=== PATIENT | female | born 1940 | race Caucasian/White ===

== ENCOUNTER → 2023-05-26 10:56 | Outpatient (REF) | payer MEDICARE, OTHER, SELFPAY | LOC: RAD 10:56 | PROVIDERS: ATTENDING PHYSICIAN Surgery Vascular Surgery; FAMILY PHYSICIAN Internal Medicine | DX: I73.9 Peripheral vascular disease, unspecified (principal) | CPT/HCPCS: 93922; 93925 ==

== ENCOUNTER → 2023-09-25 11:03 | Outpatient (REF) | payer MEDICARE, OTHER, SELFPAY | LOC: RCS 11:03 | PROVIDERS: ATTENDING PHYSICIAN Internal Medicine Cardiovascular Disease; FAMILY PHYSICIAN Internal Medicine | DX: I21.4 Non-ST elevation (NSTEMI) myocardial infarction (principal); I50.32 Chronic diastolic (congestive) heart failure; I10 Essential (primary) hypertension | CPT/HCPCS: 93306 ==

== ENCOUNTER 2023-10-03 15:17 | Emergency (ER) | payer MEDICARE, OTHER, SELFPAY ==
[2023-10-03 15:30] VITALS: BP 152/75
--- NOTE | 2023-10-03 15:57 | ED.SKININJ ---
HPI-Injury
General
Chief Complaint: Bite
Source: patient
Exam Limitations: none
Time Seen by Provider: 10/03/23 15:56
Nursing documentation reviewed up to this point in time: agreed with
History of Present Illness-Injury
Is this injury a work related problem?: No
Is pt an associate of [facility]?: No
Initial Injury comments:
83-year-old female with a past medical history of hypertension, COPD, peripheral arterial disease, insulin-dependent diabetes presenting emergency department today with concerns of a tick bite. Patient states that she is outside frequently to work
in her garden. Patient states that she noticed the rash on her abdomen but did not notice the tick until her daughter pointed it out. Daughter present here with patient who reports that she was changing patient's insulin pump today when she noticed
the engorged tick. Patient denies chest pain, palpitations, lightheadedness, fevers or chills, shortness of breath. Patient denies history of tick bites/lyme disease. Patient states that the rash is not itchy or painful.
Past History
Past History
ED Past Medical History: CVA, HTN, Hypercholesterolemia, IDDM, Hypothyroidism, Other (Osteoarthritis) and Other (LE Arterial insufficiency)
ED Past Surgical History: Other (Lower extremity stent)
Social History
Tobacco: Former smoker
Alcohol: None
Drug: None
Personal:
Living: alone
Employment: Retired
Family History
Family History: Diabetes, Other and Unable to obtain
Review of Systems
Review of Systems
All Other Systems: ROS reviewed and negative except as documented in HPI and ROS
Phy Exam
Physical Exam
Physical Exam:
GENERAL: Patient is well appearing and in no acute distress; non-toxic
SKIN: Uniform circumferential area of erythema located in the left lower abdominal quadrant consistent with erythema migrans, approximately 6 cm in width with engorged tick in the center with body about 7 mm in width.
HEAD: Normocephalic, atraumatic
EYES: Sclera non-icteric. EOMs intact.
CARDIAC: Regular rate
PERIPHERAL VASCULAR: No lower extremity swelling or edema
PULM: Normal respiratory effort
ABDOMEN: See skin exam above. No tenderness to palpation.
NEURO: CN II-XII intact, no focal neurologic deficits.
PSYCH: Appropriate mood and affect
Course
Vital Signs
Initial and Last Documented VS:
Initial Vital Signs
Temp Pulse Resp BP Pulse Ox
98.2 F 55 16 152/75 96
10/03/23 15:30 10/03/23 15:30 10/03/23 15:30 10/03/23 15:30 10/03/23 15:30
Last Documented Vital Signs
Temp Pulse Resp BP Pulse Ox
98.2 F 55 16 152/75 96
10/03/23 15:30 10/03/23 15:30 10/03/23 15:30 10/03/23 15:30 10/03/23 15:30
MDM/Problems Addressed
Differential Diagnosis Includes:
ddx include lyme disease/erythema migrans, contact dermatitis, cellulitis, erysipelas
MDM/Problems Addressed:
Tick bite/erythema migrans:
83-year-old female with a past medical history of hypertension, COPD, peripheral arterial disease, insulin-dependent diabetes presenting emergency department today with concerns of a tick bite. Daughter noticed the engorged tick today when changing
her insulin pump. There is an associated rash consistent with erythema migraines. Patient denies fevers or chills. Denies any other complaints.
The tick was successfully removed with sterile tweezers close to the head and carefully pulled straight up to prevent breakage. The remaining wound was thoroughly cleaned with sterile saline and wound cleanser, and bacitracin and dressing was
applied. Wound care and return precautions given. Doxycycline started. Encouraged primary care follow up for reevaluation.
Chronic conditions affecting care:
hypertension, COPD, peripheral arterial disease, insulin-dependent diabetes
Acute Exacerbation and/or Progression of Chronic Illness:
n/a
*Pulse Oximetry
Patient hypoxic: no
*Critical Care Note
Total Time (30-74mins, 75-104mins- exclusive of procedures): Not Applicable
Data Reviewed
Review of Other/Old Records Reveals: Discharge Summary (reviewed most recent discharge summaries)
Patient Management
Escalation/DeEscalation of care consider admission/obs:
Patient stable for discharge. Reviewed case with my attending Dr. Rees.
ED Attending Note
-
Portions of this chart may have been created with voice recognition software.� Occasional wrong word or��sound alike� substitutions may have occurred due to the inherent limitations of voice recognition software.
Discharge Plan
Departure
Patient Disposition: Home (Routine Discharge)
Date of Disposition: 10/03/23
Time of Disposition: 16:17
Patient with high blood pressure during this ER visit?: Yes
Condition: Good
Discharge Problem:
Tick bite, Rash
Instructions: Lyme disease, Wound Care (DC), Insect Bites and Stings (DC)
Prescriptions:
New
doxycycline hyclate 100 mg capsule
100 mg PO BID Qty: 14 0RF
No Action
cyanocobalamin (vitamin B-12) 100 MCG tablet
100 mcg PO DAILY
aspirin 81 MG tablet,delayed release (DR/EC)
81 mg PO QPM
ferrous sulfate [FeroSul] 325 MG tablet
325 mg PO QPM
Insulin Pump [Patient's Own Insulin Pump:] 1 UNITS Pump.Resvr
1 dose SC .CONTINUOUS
Rx Instructions:
patient using humalog via pump continuous
amlodipine 5 MG tablet
2.5 mg PO BID
ascorbic acid (vitamin C) 500 MG capsule
500 mg PO QPM
cholestyramine-aspartame [Cholestyramine Light] 4 GM powder in packet
4 gm PO QPM
coenzyme Q10 200 MG capsule
200 mg PO QPM
roflumilast [Daliresp] 500 MCG tablet
500 mcg PO DAILY
Bevespi Aerosphere 9-4.8 mcg Hfa Aerosol Inhaler
2 puff INHALATION R DAILY Qty: 0
Patient Comments:
9-4.8MCG
levothyroxine 100 MCG tablet
100 mcg PO DAILY AT 0700
loperamide 2 mg Capsule
2 mg PO Q4HPRN PRN (Reason: diarrhea)
acetaminophen [Tylenol] 325 mg Capsule
650 mg PO Q4HPRN PRN (Reason: mild pain)
albuterol sulfate 2.5 mg /3 mL (0.083 %) Solution For Nebulization
2.5 mg INHALATION R DAILY
gabapentin 100 mg Capsule
100 mg PO HS
Baqsimi 3 mg/actuation [place],Non-Aerosol
3 mg INTRANASAL DAILYPRN PRN (Reason: low blood sugar)
Hair, Skin and Nails (biotin) 10,000 mcg Tablet,Chewable
10,000 mcg PO DAILY
atorvastatin 80 mg Tablet
80 mg PO QPM Qty: 30 0RF
clopidogrel 75 mg Tablet
75 mg PO DAILY Qty: 30 0RF
pantoprazole 40 mg Tablet,Delayed Release (Dr/Ec)
40 mg PO DAILY Qty: 30 0RF
metoprolol succinate 25 mg Tablet Extended Release 24 Hr
12.5 mg PO DAILY Qty: 30 0RF
Activity Restrictions/Additional Instructions:
Patient doxycycline to your pharmacy. You can take 1 tablet twice daily for 14 days.
Please return to the emergency department should you experience fevers or chills, abdominal pain, nausea or vomiting, confusion, weakness, lightheadedness, chest pain, shortness of breath, or any other concerning signs or symptoms.
Please follow-up with your primary care provider.
Interventions
Interventions:
*Risk Screen - Suicide Last Done: 10/03/23 15:30
*General Assessment Last Done: 10/03/23 15:30
*Neglect/Abuse Screening Last Done: 10/03/23 15:30
*Nursing Disposition Last Done: 10/03/23 16:51
ED-Skin Assessment Last Done: 10/03/23 16:12
Discharge Date and Time
Discharge Date/Time: 10/03/23 16:52
Print Language: NORTHER[place] IRISH
== END 2023-10-03 16:52 | disposition home or self-care (01) ==
LOC: EMR 15:17
PROVIDERS: EMERGENCY PHYSICIAN Emergency Medicine; FAMILY PHYSICIAN Internal Medicine
DX: R21 Rash and other nonspecific skin eruption (principal); W57.XXXA Bitten or stung by nonvenomous insect and other nonvenomous arthropods, initial encounter; I10 Essential (primary) hypertension; E78.00 Pure hypercholesterolemia, unspecified; E11.51 Type 2 diabetes mellitus with diabetic peripheral angiopathy without gangrene; E03.9 Hypothyroidism, unspecified; J44.9 Chronic obstructive pulmonary disease, unspecified; M19.90 Unspecified osteoarthritis, unspecified site; Z86.73 Personal history of transient ischemic attack (TIA), and cerebral infarction without residual deficits; Z87.891 Personal history of nicotine dependence
CPT/HCPCS: 99282

== ENCOUNTER → 2023-12-08 10:53 | Outpatient (REF) | payer MEDICARE, OTHER, SELFPAY | LOC: RAD 10:53 | PROVIDERS: ATTENDING PHYSICIAN Surgery Vascular Surgery; FAMILY PHYSICIAN Internal Medicine | DX: I73.9 Peripheral vascular disease, unspecified (principal) | CPT/HCPCS: 93922; 93925 ==

== ENCOUNTER 2024-07-20 23:10 | Inpatient (IN) | payer MEDICARE, OTHER, SELFPAY ==
[2024-07-20] VITALS (7 sets, daily range): BP systolic 128–174; BP diastolic 52–75; BMI 22.1
[2024-07-20 19:22] LABS: % Basophils 0.4 % (0-2); % Immature Granulocytes 0.4 % (0-0.5); % Lymphocytes 14.6 % (20.5-51.1); % Monocytes 9.7 % (1.7-9.3); % Neutrophils 69.9 % (42.2-75.2); Absolute Eosinophils 0.6 10^3/uL (0-0.7); Absolute Lymphocytes 1.6 10^3/uL (1.2-3.4); Absolute Monocytes 1.1 10^3/uL (0.1-0.6); Absolute Neutrophils 7.7 10^3/uL (1.4-6.5); Hematocrit 34.4 % (37.0-47.0); Hemoglobin 11.8 g/dL (12.0-16.0); Mean Corp Hgb Conc. 34.3 g/dL (33.0-37.0); Mean Corpuscular Hgb 30.6 pg (27.0-31.0); Mean Corpuscular Volume 89.1 fL (81.0-99.0); Mean Platelet Volume 8.6 fL (7.4-10.4); Nucleated Red Blood Cells % 0 %; Platelet Count 317 10^3/uL (130-400); Red Blood Cell Count 3.86 10^6/uL (4.20-5.40); Red Cell Dist. Width 14.3 % (11.5-14.5)
[2024-07-20 19:35] LABS: ALT (SGPT) 35 U/L (0-35); AST (SGOT) 42 U/L (14-36); Albumin 3.1 g/dl (3.5-5.0); Alkaline Phosphatase 82 U/L (38-126); Blood Urea Nitrogen 30 mg/dl (7-17); Calcium 8.6 mg/dl (8.4-10.2); Carbon Dioxide 27 mmol/L (22-30); Chloride 104 mmol/L (98-107); Glucose 92 mg/dl (70-99); Potassium 4.6 mmol/L (3.5-5.1); Sodium 138 mmol/L (135-145); Total Bilirubin 0.5 mg/dl (0.2-1.3); Total Protein 6.2 g/dl (6.3-8.2); eGFR > 60.00
--- NOTE | 2024-07-20 19:36 | ED.GENMED ---
History of Present Illness
General
Chief Complaint: Breathing Problem
Source: patient
Exam Limitations: none
Time Seen by Provider: 07/20/24 19:27
Nursing documentation reviewed up to this point in time: agreed with
History of Present Illness
History of Present Illness:
83-year-old female from home where she lives alone presents with her daughter and son-in-law at bedside for 'hard breathing.' She states her shortness of breath started about 3 days ago along with swelling in her legs. Laying flat makes her
breathing worse. She has been taking her twice daily nebulizations and her inhaler every day as usual with no relief. She denies fever or chills. She denies chest pain or abdominal pain. She denies N/V/C. She does have her usual chronic
diarrhea.
Past History
Past History
ED Past Medical History: COPD, CVA, HTN, Hypercholesterolemia, IDDM, DC, Hypothyroidism, Other (Osteoarthritis), Other (LE Arterial insufficiency) and Other (Chronic diarrhea, CKD)
ED Past Surgical History: Other (Lower extremity stent)
Social History
Tobacco: Former smoker
Alcohol: None
Drug: None
Personal:
Living: alone
Employment: Retired
Family History
Family History: Diabetes, Other and Unable to obtain
Review of Systems
Review of Systems
Allergies reviewed?: Yes
All Other Systems: ROS reviewed and negative except as documented in HPI and ROS
Constitutional: Reports fatigue; Denies fever or chills
EENT: Denies sore throat
Respiratory: Reports trouble breathing; Denies cough
Cardiac: Denies chest pain
ABD/GI: Reports diarrhea (Chronic); Denies abdominal pain, nausea, vomiting, bloody stools, black stools or anorexia
: Denies dysuria, frequency or difficulty voiding
Musculoskeletal: Reports edema
Skin: Reports no symptoms
Phy Exam
Physical Exam
Physical Exam:
GENERAL: No acute distress. A&Ox3.
CONSTITUTIONAL: Afebrile.
EYES: clear, conjunctivae normal
ENMT: moist mucus membranes, Pharynx nl
RESPIRATORY: Regular respirations, nonlabored, lungs with expiratory wheezes throughout worse on the right. Pulse ox 88% RA. On 4 L O2 93%
CARDIOVASCULAR: Regular rate and rhythm, no murmurs, no rubs.
GI: Soft, nontender, normal BS
MUSCULOSKELETAL: Moves with ease. Well perfused. +1 pitting edema both ankles.
SKIN: Warm, dry, pink
PSYCH: Normal mood and affect. Well kept, interactive and appropriate
NEUROLOGIC: Awake, alert and oriented. No focal neurological deficits
Scores
Heart Failure Risk
Heart Failure Risk Score: Not Applicable
Course
Orders/Labs/Results
Orders:
Orders
07/20/24 18:48
Electrocardiogram (*1) Urgent
Reason for Study: Other
Other Reason for Exam: Respiratory Distress
Cardiac Monitoring- Treatment ONCE
EKG- Treatment ONCE
IV Insert/Care/Rem.- Treatment PRN
CR Chest - 2 Views Urgent
Comment:
Reason For Exam: respiratory distress
O2 Therapy [RESP] Urgent
Titrate/Wean O2 to maintain O2 sat greater than (%): 93
Special Instructions: TO MAINTAIN CONTINUOUS O2 SATS >/= 93%
Pulse Ox/cont/shift [RESP] Urgent
Quantity: 1
Special Instructions: continuous pulse ox
07/20/24 19:14
COVID-19 Antigen Urgent
Source: Nasal Swab
Complete Blood Count/With Diff Urgent
Comprehensive Metabolic Panel Urgent
NT-proBNP Urgent
Troponin I Urgent
Influenza A+B Rapid Molecular Urgent
JOSHUA Source: Nasal Swab
Specimen Description:
07/20/24 19:36
Ipratropium/Albuterol Sulfate [Duoneb] 3 ml INH R NOW STA
07/20/24 20:22
Azithromycin 500 mg/250 ml [Zithromax Infusion] 500 mg in 250 ml IV NOW
CefTRIAXone [Rocephin] 1,000 mg IV NOW STA
07/20/24 22:00
Flush (0.9% Sodium Chloride) [Flush (Nss)] See Dose Instructions IV PER PROTOCOL
07/20/24 22:52
Admit/Transfer Patient As Directed
Co-Sign Provider:
Level of Care: Inpatient admission
Assign to:: Medical/Surgical
Physician / Group: Vinh
Diagnosis: R Hilar Mass, RLL Pneumonia
Reason for Hospitalization: R Hilar Mass, RLL Pneumonia
Expected length of stay greater than two midnights?: Yes
ELOS- Estimated Length of Stay in days: 4
I certify the patient meets the requirements for IP care: Yes
PRN Pain Medication Management As Directed
May give lesser potent ordered pain med per pt: Yes
preference::
Protocol:: Medication orders for pain may be administered in a
manner that supports deferring to patient preference
when the pt is:
- Requesting an ordered lesser potent pain medication.
Least to most potent pain medications are defined
as: acetaminophen < NSAID < tramadol < opioids
(morphine, oxycodone, hydromorphone).
- Requesting a lesser dose of the same medication IF
ORDERED.
- Requesting a less intrusive route of administration
if both routes are prescribed by the provider (PO <
IV).
07/20/24 23:01
Code Status As Directed
Resuscitation Status: Full Code
07/20/24 23:38
Acetaminophen [Tylenol] 650 mg PO Q4HPRN PRN
Albuterol Nebs [Ventolin Nebules] 2.5 mg INH R Q4HPRN PRN
Dextrose 50%-Water [Dextrose 50% Syringe] 12.5 grams IV [id number] PRN
Glucagon [GlucaGen] 1 mg IM PRN PRN
07/20/24 23:38
Consult Notification Routine
Specialty to Notify: Pulmonary
Date consulting provider notified: 07/21/24
Time consulting provider notified: 11:13
Notified:: Provider
PULMONARY CONSULT Routine
Consulting Provider: Micki Campbell
Was physician already notified: No
Reason for consult: RLL Pneumonia, Hilar Mass
Activity As Directed
Activity Level: Ambulate
With Assistance
Bedside Glucose Monitoring As Directed
Frequency: AC&HS
Additional Instructions:: Change to q6h if pt on TPN, tube feeding or not eating
I/O [Intake/ Output] As Directed
Frequency: Per unit guidelines
Pneumatic Compression Sleeves As Directed
Type: Knee high
Vital Signs As Directed
Frequency: Per unit guidelines
Weight As Directed
Frequency: Daily
Oxygen Therapy [O2 Therapy] [RESP] Routine
Titrate/Wean O2 to maintain O2 sat greater than (%): 94
DX Deep Vein Thrombosis Video Routine
07/21/24 04:51
Complete Blood Count/No Diff IN AM
Glycohemoglobin (HgbA1c) IN AM
07/21/24 Breakfast
1800 calorie (15 carb) Diabetic
At Your Request: Full Participation
Does patient need a safe tray?: No
Levothyroxine [Synthroid] 100 mcg PO [id number]@0600
07/21/24 08:00
Amlodipine [Norvasc] 2.5 mg PO BID
Aspirin Low Dose EC [Aspir Low (Enteric Coated)] 81 mg PO DAILY
Doxycycline [Vibramycin] 100 mg PO Q12
Ipratropium/Albuterol Sulfate [Duoneb] 3 ml INH R QID
Metoprolol Xl [Toprol Xl] 12.5 mg PO DAILY
Pantoprazole [Protonix] 40 mg PO DAILY
Roflumilast [Daliresp] 500 mcg PO DAILY
07/21/24 18:00
Atorvastatin [Lipitor] 80 mg PO QPM
07/21/24 20:00
CefTRIAXone [Rocephin] 1,000 mg IV Q24H
07/21/24 22:00
Gabapentin [Neurontin] 100 mg PO HS
Abnormal Lab Results
07/20/24
19:14
WBC 11.0 H 10^3/uL
(4.8-10.8)
RBC 3.86 L 10^6/uL
(4.20-5.40)
Hgb 11.8 L g/dL
(12.0-16.0)
Hct 34.4 L %
(37.0-47.0)
Absolute Neuts (auto) 7.7 H 10^3/uL
(1.4-6.5)
Absolute Monos (auto) 1.1 H 10^3/uL
(0.1-0.6)
Lymphocytes % 14.6 L %
(20.5-51.1)
Monocytes % 9.7 H %
(1.7-9.3)
BUN 30 H mg/dl
(7-17)
AST 42 H U/L
(14-36)
Total Protein 6.2 L g/dl
(6.3-8.2)
Albumin 3.1 L g/dl
(3.5-5.0)
07/20/24 19:14
07/20/24 19:14
Vital Signs
Initial and Last Documented VS:
Initial Vital Signs
Pulse Ox
88
07/20/24 18:15
Last Documented Vital Signs
Temp Pulse Resp BP Pulse Ox
98.3 F 83 20 175/58 94
07/21/24 23:10 07/21/24 23:13 07/21/24 23:13 07/21/24 23:10 07/21/24 23:13
MDM/Problems Addressed
Differential Diagnosis Includes:
CHF, COPD, PNA
MDM/Problems Addressed:
83-year-old female from home where she lives alone presents with her daughter and son-in-law at bedside for 'hard breathing.' She states her shortness of breath started about 3 days ago along with swelling in her legs. Laying flat makes her
breathing worse. She has been taking her twice daily nebulizations and her inhaler every day as usual with no relief. She denies fever or chills. She denies chest pain or abdominal pain. She denies N/V/C. She does have her usual chronic
diarrhea.
EKG sinus bradycardia with PACs.
8:15 PM:
CBC with no clinically significant abnormality
CMP: BUN 30 otherwise normal
Troponin normal
BNP 470
8:30 p.m.
CXR: Large right lung opacity consistent with PNA
Plan: Admit: IV antibiotics.
Hospitalist notified of admission.
Chronic conditions affecting care: DM, HTN and COPD
*EKG
EKG Intrepretation Date: 07/20/24
Interpretation: abnormal
Comparison EKG: changes noted
Heart Rate: 59
Rate: bradycardiac
Rhythm: sinus and PAC's
[place]: normal axis
Interval: normal interval
QRS Pattern: normal QRS
Ischemia: no ischemia
*Critical Care Note
Total Time (30-74mins, 75-104mins- exclusive of procedures): Not Applicable
ED Attending Note
-
Portions of this chart may have been created with voice recognition software.� Occasional wrong word or��sound alike� substitutions may have occurred due to the inherent limitations of voice recognition software.
Discharge Plan
Departure
Patient Disposition: Admit
Date of Disposition: 07/20/24
Time of Disposition: 20:24
Admit to: IMU
Presentation/result/management discussed w/ accepting MD/DO: Hospitalist
Condition: Fair
Covid-19: Negative COVID-19
Discharge Problem:
Pneumonia involving right lung, Hypoxemia, COPD (chronic obstructive pulmonary disease)
Interventions
Interventions:
*Risk Screen - Suicide Last Done: 07/20/24 18:27
*General Assessment Last Done: 07/20/24 18:27
*Neglect/Abuse Screening Last Done: 07/20/24 19:34
*ED- Fall Risk Assessment Last Done: 07/20/24 19:37
*ED COVID-19 Vaccine History Last Done: 07/20/24 18:27
*Nursing Disposition Last Done: 07/21/24 04:05
ED- Cardiac Assessment Last Done: 07/20/24 19:39
ED- Pulmonary Assessment Last Done: 07/20/24 19:39
Discharge Date and Time
Discharge Date/Time: 07/21/24 18:17
[2024-07-20 19:38] LABS: COVID-19 Antigen Negative (Negative)
[2024-07-20] MEDS: DUONEB 3 ML INH (19:43)
[2024-07-20 19:47] LABS: NT-proBNP 470 pg/ml; Troponin I < 0.012 ng/ml
[2024-07-20] MEDS: ROCEPHIN 1000 MG IV (20:34)
[2024-07-20] MEDS: ZITHROMAX INFUSION 250 IV (20:38)
--- NOTE | 2024-07-20 23:07 | HPS.HSE ---
Family Physician
-
Family Physician: NOT KNOW UNKNOWN - PT DOES
Chief Complaint
-
SOB
History of Present Illness
Patient is an 83y F with PMH significant for COPD, ASCVD and DM-I who presents to ED complaining of SOB. Patient states that she has become progressively more SOB in the past week or so. She has mild, non-productive cough. No fevers / chills.
Dyspnea is worse with lying flat and she has noted new swelling in the ankles. No chest pain. No fevers / chills. No N/V. Patient reports chronic loose stools and takes occasional Imodium.
No other new complaints or concerns.
Patient was seen by her PCP who recommended she present to the ED for evaluation.
Medical History
Past Medical History
Past Medical History: Reports Other
Additional Past Medical History:
ASCVD (CAD, PAD)
Hypertension
COPD
Hypothyroidism
DM-I
IBS-D
Past Surgical History: Reports Other
Additional Past Surgical History:
Bilateral Femoral Endarterectomies
PTCA with Coronary Stent
PAD with Stents
Social History
Tobacco: Former Smoker (Quit smoking 5 years ago. > 50 pack years total use.)
Alcohol: None
Drug: None
Family History
Family History: Not pertinent
Allergies / Home Medications
Allergies reflects when Allergies were last updated in [facility] [employer].
Home Medications with original date entered in [facility]
Allergy/Medication List:
Allergies
Allergy/AdvReac Type Severity Reaction Status Date / Time
No Known Allergies Allergy Verified 07/20/24 18:29
Home Medications
Insulin Pump [Patient's Own Insulin Pump:] 1 dose SC .CONTINUOUS Diabetes 07/15/17
aspirin 81 mg tablet,delayed release 81 mg PO DAILY Blood clot prevention/tx 07/15/17
cyanocobalamin (vitamin B-12) 100 mcg tablet 100 mcg PO DAILY Supplement 07/15/17
ferrous sulfate 325 mg (65 mg iron) tablet (FeroSul) 325 mg PO QPM Supplement 07/15/17
amlodipine 5 mg tablet 2.5 mg PO BID Blood pressure 09/08/20
ascorbic acid (vitamin C) 500 mg capsule 500 mg PO QPM Supplement 09/08/20
coenzyme Q10 200 mg capsule 200 mg PO QPM Supplement 09/08/20
glycopyrrolate 9 mcg-formoterol 4.8 mcg HFA aerosol inhaler (Beves2heuresavantphere) 2 puff inhalation R DAILY Lung/breathing issues ##0 09/08/20
roflumilast 500 mcg tablet (Daliresp) 500 mcg PO DAILY Lung/breathing issues 09/08/20
levothyroxine 100 mcg tablet 100 mcg PO .MON-SAT. Thyroid 07/19/21
acetaminophen 325 mg capsule (Tylenol) 650 mg PO Q4HPRN PRN mild pain 06/28/22
loperamide 2 mg capsule 2 mg PO .EVERY OTHER DAY diarrhea 06/28/22
albuterol sulfate 2.5 mg/3 mL (0.083 %) solution for nebulization 2.5 mg inhalation R DAILY Lung/Breathing Issues 02/17/23
biotin 10,000 mcg chewable tablet (Hair, Skin and Nails (biotin)) 10,000 mcg PO DAILY Supplement 02/17/23
gabapentin 100 mg capsule 100 mg PO HS Neurological Condition 02/17/23
glucagon 3 mg/actuation nasal spray (Baqsimi) 3 mg intranasal DAILY 02/17/23
atorvastatin 80 mg tablet 80 mg PO QPM #30 tabs 02/25/23
clopidogrel 75 mg tablet 75 mg PO DAILY #30 tabs 02/25/23
metoprolol succinate 25 mg tablet,extended release 24 hr 12.5 mg (1/2 x 25 mg) PO DAILY #30 tabs 02/25/23
pantoprazole 40 mg tablet,delayed release 40 mg PO DAILY #30 tabs 02/25/23
doxycycline hyclate 100 mg capsule 100 mg PO DAILY 07/20/24
Review of Systems
-
History Source: Patient
A 12 point ROS was completed and negative except as noted: Yes
Constitutional: Denies Fever or Chills
EENT: Denies Sore Throat
Respiratory: Reports Cough and Trouble Breathing
Cardiac: Denies Chest Pain or Palpitations
Abdomen/GI: Reports Diarrhea (chronic); Denies Abdominal Pain, Nausea, Vomiting, Bloody Stools or Black Stools
: Denies Dysuria, Frequency or Flank Pain
Musculoskeletal: Reports Edema; Denies Joint Pain
Neurological: Denies Dizzy or Headache
Psych: Denies Depression or Anxiety
Physical Exam
Vital Signs
Vital Signs
Temp Pulse Resp BP Pulse Ox
98.1 F 59 18 148/75 95
07/20/24 18:21 07/20/24 19:00 07/20/24 22:00 07/20/24 22:00 07/20/24 22:00
Physical Exam
General: Other (83y F in no acute distress.)
HEENT: Moist mucous membranes and PERRLA
Respiratory: Other (Coarse BS at R base. Insp / exp wheezing R midlung. )
Cardiac: S1/S2, Regular Rhythm and Murmur (II/ COBY)
GI: Soft, Non Tender, Non Distended and Normal Bowel Sounds
Musculoskeletal: No Clubbing, No Cyanosis and Other (2+ pitting edema b/l ankles.)
Neuro: AO x 3
Laboratory Results
-
07/20/24 19:14
07/20/24 19:14
Laboratory Results
Total Bilirubin 0.5 mg/dl (0.2-1.3) 07/20/24 19:14
AST 42 U/L (14-36) H 07/20/24 19:14
ALT 35 U/L (0-35) 07/20/24 19:14
Alkaline Phosphatase 82 U/L (38-126) 07/20/24 19:14
Troponin I < 0.012 ng/ml 07/20/24 19:14
Impression/Plan
-
A/P: Patient is an 83y F with PMH significant for ASCVD, COPD and DM-I who presents to ED complaining of SOB.
RLL Pneumonia
R Hilar Mass
- Admit for further evaluation and treatment.
- Suspect that radiographic changes are primarily due to central mass / RLL collapse as patient is afebrile, no leukocytosis, etc.
- Cover with abx for CAP for now.
- Pulmonary evaluation for additional recommendations. ? FOB / biopsy of hilar lesion.
- Check CT chest for further evaluation.
- Also note that patient has R anterior axilla mass / lesion that may be related.
- Follow for clinical improvement.
- Supportive care, supplemental O2, nebs, etc.
COPD
- Perhaps mild exacerbation - though again, wheezing likely mass-related.
- Nebs ATC and PRN.
- Monitor off of systemic steroids for now.
- Pulm eval as noted above.
Orthopnea / Edema
- Evaluation thus far seems most c/w mass / pneumonia as noted above.
- No h/o CHF - but does have h/o ASCVD / CAD.
- Check Echo for completeness.
ASCVD (CAD and PAD)
- s/p coronary stents, PAD stents and b/l femoral endarterectomies.
- Continue ASA uninterrupted.
- Hold Plavix for now pending potential lung biopsy, etc.
Benign Hypertension
- Stable. Continue current med regimen.
Hypothyroidism
- Stable. Continue current T4 replacement.
DVT Prophylaxis: SCDs
Code Status: Full
[2024-07-21] MEDS: VENTOLIN NEBULES 2.5 MG INH ×2 (03:25→23:11)
[2024-07-21 05:22] LABS: Hematocrit 33.8 % (37.0-47.0); Hemoglobin 11.6 g/dL (12.0-16.0); Mean Corp Hgb Conc. 34.3 g/dL (33.0-37.0); Mean Corpuscular Hgb 30.9 pg (27.0-31.0); Mean Corpuscular Volume 90.1 fL (81.0-99.0); Mean Platelet Volume 8.9 fL (7.4-10.4); Platelet Count 352 10^3/uL (130-400); Red Blood Cell Count 3.75 10^6/uL (4.20-5.40); Red Cell Dist. Width 14.5 % (11.5-14.5); White Blood Cell Count 11.1 10^3/uL (4.8-10.8)
[2024-07-21] MEDS: SYNTHROID 100 MCG PO (05:27)
[2024-07-21 06:47] LABS: Blood Urea Nitrogen 27 mg/dl (7-17); Calcium 8.3 mg/dl (8.4-10.2); Carbon Dioxide 27 mmol/L (22-30); Chloride 108 mmol/L (98-107); Estimated Creatinine Clearance 32 ml/min; Glucose 106 mg/dl (70-99); Potassium 4.3 mmol/L (3.5-5.1); Sodium 139 mmol/L (135-145); eGFR > 60.00
[2024-07-21 07:40] VITALS: BP 144/62
[2024-07-21] MEDS: DUONEB 3 ML INH ×4 (08:20→19:08)
[2024-07-21 09:11] LABS: Glycohemoglobin (HgbA1c) 7.3 % (4.0-5.6)
[2024-07-21] MEDS: DALIRESP 500 MCG PO (09:22)
[2024-07-21] MEDS: VIBRAMYCIN 100 MG PO ×2 (09:23→20:10)
[2024-07-21] MEDS: TOPROL XL 12.5 MG PO (09:24)
[2024-07-21] MEDS: ASPIR LOW (ENTERIC COATED) 81 MG PO (09:25)
[2024-07-21] MEDS: NORVASC 2.5 MG PO ×2 (09:25→20:10)
[2024-07-21] MEDS: PROTONIX 40 MG PO (09:25)
[2024-07-21] MEDS: PT'S OWN INSULIN PUMP - HumaLOG 6 UNIT SC (09:34)
[2024-07-21 09:35] LABS: Glucose - Point of Care 104 mg/dl (70-99)
--- NOTE | 2024-07-21 11:56 | W.PN.HOSP.TC ---
Addendum entered and electronically signed by Luz Shafer MD 07/21/24 15:40:
I saw and evaluated the patient independently. I reviewed the resident�s note and agree with findings and plan as documented by Dr. Ríos.
GENERAL: well developed, well nourished, female in no apparent distress
HEENT: NC/AT --O2 NC
HEART: regular rate and rhythm, +S1, +S2, COBY
LUNGS : wheezing RUL, rhonchi mid lung field
ABDOM: soft, nontender, nondistended, + bowel sounds
EXT: no cyanosis, clubbing, or edema
NEUROLOGIC: grossly intact
LAD: right axillary LAD, firm nontender
Acute hypoxemic resp failure (4-5L here, none at home) due to likely COPD exacerbation from right hilar lung mass and post obstructive PNA (RLL pna)--aspiration a possible consideration--CT chest--pulm consult-- change rocephin/doxy to IV unasyn
for better coverage--Check strep pneumo and Legionella antigen--Speech eval--consideration for biopsy of axillary LAD vs bronch or needle Bx of RLM--will need to discuss with patient, family
COPD--Likely COPD exacerbation(dyspnea and wheezing present)--Not on home O2--Continue Daliresp(Roflumilast)--DuoNebs ATC and as needed--apprec pulm input
orthopnea/minimal LE edema--May be due to pneumonia or hilar mass--Echo reveals echo reveals LVEF 55% with normal regional wall motion and left ventricle wall thickness--doubt any CHF reason or cause
ASCVD (Hx of CAD, PAD)--s/p coronary stents, PAD stents and b/l femoral endarterectomies--Continue aspirin uninterrupted--Hold Plavix for potential lung biopsy
Essential hypertension--Continue amlodipine and Nebivolol
Hypothyroidism--Continue levothyroxine
Type 1 diabetes mellitus--Continue home insulin pump--accuchecks with coverage--check HGB A1C
code status --Full code
DVT proph --SCDs
Original Note:
Today's Communication/Plan
-
Check strep and Legionella antigen
CT chest pending
Consult pulmonology for further evaluation of hilar mass
Changed to IV Unasyn, continue doxycycline
Assessment / Plan
Assessment / Plan
Impression
Right lower lobe pneumonia
Right hilar mass
Acute hypoxic respiratory failure
History of COPD
Dyspnea on exertion/orthopnea/LE edema
History of PAD and CAD
Essential hypertension
Hypothyroidism
Type 1 diabetes mellitus
Plan
Right lower lobe pneumonia likely due to aspiration?
Right hilar mass seen on chest x-ray
Patient is afebrile with no leukocytosis
Chest CT with IV contrast for workup of hilar mass--- lung malignancy?
Consult pulmonology for further evaluation
Changed to Unasyn for anaerobic coverage and postobstructive pneumonia. Continue doxycycline
Check strep pneumo and Legionella antigen
MRSA pending
Speech eval
PT eval
Acute hypoxic respiratory failure
Suspect due to aspiration pneumonia/COPD exacerbation/hilar mass
Currently on 4 to 5 L of oxygen
Wean as able
History of COPD
Likely COPD exacerbation(dyspnea and wheezing present)
Not on home O2
Continue Daliresp(Roflumilast)
DuoNebs ATC and as needed
Pulmonology eval
Dyspnea on exertion/orthopnea/LE edema
May be due to pneumonia or hilar mass
Echo reveals echo reveals LVEF 55% with normal regional wall motion and left ventricle wall thickness.
ASCVD (Hx of CAD, PAD)
s/p coronary stents, PAD stents and b/l femoral endarterectomies.
Continue aspirin uninterrupted
Hold Plavix for potential lung biopsy
Essential hypertension
Continue amlodipine and Nebivolol
Hypothyroidism
Continue levothyroxine
Type 1 diabetes mellitus
Continue home insulin pump
Monitor blood glucose
Diabetic diet
Full code
SCDs
Anticipated Discharge: > 48 hours
Subjective/Interval History
-
Date of Service: July 21, 2024
Patient presented with progressive shortness of breath in the past week.
Objective Data
-
Labs:
Laboratory Results
07/21/24 07/21/24
04:51 06:03
WBC 11.1 H
Hgb 11.6 L
Hct 33.8 L
Plt Count 352
Sodium Cancelled 139
Potassium Cancelled 4.3
Chloride Cancelled 108 H
Carbon Dioxide Cancelled 27
BUN Cancelled 27 H
Creatinine Cancelled 0.9
Glucose Cancelled 106 H
Calcium Cancelled 8.3 L
Vital Signs:
Vital Signs
Temp Pulse Resp BP Pulse Ox
98.1 F 59 16 128/63 94
07/20/24 18:21 07/20/24 19:00 07/21/24 08:28 07/20/24 23:00 07/21/24 08:28
Review of Systems
-
All other systems: Reviewed and negative (Except mentioned)
Respiratory: Reports Cough and Trouble Breathing
Physical Exam
-
General: No Apparent Distress and Comfortable
HEENT: Normocephalic and Atraumatic
Respiratory: Wheezes (Expiratory wheeze right upper and mid lung) and Other (Coarse breath sounds bilaterally at the bases)
Cardiac: Regular Rhythm, S1/S2 and Murmur (Systolic ejection)
GI: Soft, Nontender and Nondistended
Musculoskeletal: Other (Pedal edema bilaterally)
Skin: Warm and Dry
Neuro: AO x 3
Psych: Calm
Data Reviewed
-
Medical Tests (Nuc Med, Echo etc): Report Reviewed by me and Discussed with Physician
Labs: Labs Reviewed by me and Discussed with Physician
[2024-07-21 12:06] LABS: Glucose - Point of Care 193 mg/dl (70-99)
--- NOTE | 2024-07-21 12:20 | CON.PUL ---
Consultation
Consultation Request
Date/Time Consultation Requested: 07/21/24
Date/Time Consultation Performed: 07/21/24
Performing Provider: Joe
Reason for Consultation: PNA, SOB
Medical History
-
History of Present Illness:
Patient is an 83-year-old female with previous history of COPD, diabetes, CAD, PAD, hypertension presenting with progressive shortness of breath over the past week with associated nonproductive coughing. She has noticed orthopnea and lower
extremity swelling CT obtained demonstrating large right-sided diffuse nodular consolidation. She is placed on IV antibiotics for presumed pneumonia but there is suspicion of possible underlying malignancy.
She follows with Dr. Martínez as an outpatient for history of COPD. Prior chest x-ray for comparison was in 2022 in which she had right upper lobe consolidation as well.
She does not provide additional history, appears confused.
She is currently 97% on 4L NC. She is not known to be on home O2.
Past Medical History
Past Medical History: Other (see list below)
Social History
Tobacco: Former Smoker
Alcohol: None
Drug: None
Family History
Family History: Reviewed & Not Pertinent
Allergies / Home Medications
Allergies
Allergy/AdvReac Type Severity Reaction Status Date / Time
No Known Allergies Allergy Verified 07/20/24 18:29
Home Medications
�Medication �Instructions �Recorded �Confirmed �Last Taken �Type
Insulin Pump [Patient's Own 1 dose SC . VIA HUMALOG Diabetes 07/15/17 07/21/24 06/28/22 History
Insulin Pump:]
aspirin 81 mg tablet,delayed 81 mg PO DAILY Blood clot 07/15/17 07/21/24 02/16/23 History
release prevention/tx
ferrous sulfate 325 mg (65 mg 325 mg PO QPM Supplement 07/15/17 07/21/24 02/16/23 History
iron) tablet (FeroSul)
coenzyme Q10 200 mg capsule 200 mg PO QPM Supplement 09/08/20 07/21/24 02/16/23 History
glycopyrrolate 9 mcg-formoterol 2 puff inhalation R BID 09/08/20 07/21/24 06/28/22 History
4.8 mcg HFA aerosol inhaler Lung/breathing issues ##0
(Bevespi Aerosphere)
roflumilast 500 mcg tablet 500 mcg PO DAILY Lung/breathing 09/08/20 07/21/24 02/16/23 History
(Daliresp) issues
levothyroxine 100 mcg tablet 100 mcg PO MOTUWETHFRSA Thyroid 07/19/21 07/21/24 02/16/23 History
loperamide 2 mg capsule 2 mg PO Q48H diarrhea 06/28/22 07/21/24 06/28/22 History
albuterol sulfate 2.5 mg/3 mL 2.5 mg inhalation R DAILY 02/17/23 07/21/24 Unknown History
(0.083 %) solution for nebulization Lung/Breathing Issues
biotin 10,000 mcg chewable tablet 10,000 mcg PO DAILY Supplement 02/17/23 07/21/24 Unknown History
(Hair, Skin and Nails (biotin))
gabapentin 100 mg capsule 100 mg PO HS Neurological Condition 02/17/23 07/21/24 02/16/23 History
glucagon 3 mg/actuation nasal 3 mg intranasal DAILYPRN PRN LOW 02/17/23 07/21/24 Unknown History
spray (Baqsimi) BLOOD SUGAR
atorvastatin 80 mg tablet 80 mg PO QPM #30 tabs 02/25/23 07/21/24 Unknown Rx
clopidogrel 75 mg tablet 75 mg PO DAILY #30 tabs 02/25/23 07/21/24 Unknown Rx
amlodipine 2.5 mg tablet (Norvasc) 2.5 mg PO BID 07/21/24 07/21/24 Unknown History
doxazosin 1 mg tablet 1 mg PO HS 07/21/24 07/21/24 Unknown History
levothyroxine 100 mcg tablet 150 mcg PO DEWARDS 07/21/24 07/21/24 Unknown History
(Synthroid)
nebivolol 2.5 mg tablet (Bystolic) 2.5 mg PO DAILY 07/21/24 07/21/24 Unknown History
Review of Systems
-
History Source: Patient
All other systems: Negative unless noted
Vitals / Labs / Diagnostic Testing
Vital Signs
Temp Pulse Resp BP Pulse Ox
98.1 F 59 16 128/63 94
07/20/24 18:21 07/20/24 19:00 07/21/24 08:28 07/20/24 23:00 07/21/24 08:28
Lab Data
07/21/24 04:51
07/21/24 06:03
Microbiology
07/20/24 19:14 Nasal Swab Influenza Types A & B (BRENDA) - Final
Negative for Influenza A & B, NAAT
Negative results must be combined with clinical observations
and patient history.
Nucleic Acid Amplification test (NAAT)performed on the
[employer]ed [employer] platform.
Diagnostic Testing:
Physical Exam
-
HEENT: Normocephalic, Anicteric and Moist Mucous Membranes
Cardiovascular: S1/S2 and Regular Rhythm
Respiratory: Rales and Accessory Resp Muscle Use (mild)
GI: Soft, Non Distended and Non Tender
Neurology: Awake, Alert, No Motor Deficits and Other (somewhat confused)
Skin: Warm and Dry
General: Comfortable and Other (anxious appearing)
Assessment
-
Patient is an 83-year-old female with previous history of COPD, diabetes, CAD, PAD, hypertension presenting with progressive shortness of breath over the past week with associated nonproductive coughing. She has noticed orthopnea and lower
extremity swelling CT obtained demonstrating large right-sided diffuse nodular consolidation. She is placed on IV antibiotics for presumed pneumonia but there is suspicion of possible underlying malignancy. We are consulted for evaluation.
Acute hypoxic respiratory failure
Large r sided infiltrate, cannot rule out malignancy
Progressive SOB x 1 week
Leukocytosis
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
COPD-follows [facility] Dr Martínez
Last PFT 12/02/23-FEV1 1.09-81%
Former tobacco use - [id number] 2016
PAD s/p Status post bilateral femoral endarterectomy with angioplasty, 07/26/21
Non-insulin dependent type 2 diabetes mellitus
History of peripheral neuropathy
History of aspiration pneumonia - 01/2023
CAD s/p RCA stent 01/2023
TIA
Hypothyroidism
HLD
HFpEF
HTN
BL Carotid disease
Plan
Hypoxemia noted on arrival, she is placed on 4L NC
No oxygen was needed in the past at home/baseline, prior 6MWT showing O2 johny 90-94%
Home O2 evaluation eventually
Prior history of lung disease is noted --- extensive records reviewed from OP
She follows with Dr. Martínez as an outpatient for history of COPD. Has emphysema noted on prior CT
Last PFT showing mild obstruction, she is maintained on inhaler and had been stable, last seen 11/2023 in office
Suspect patient has PNA more likely, given complaints x 1 week (rapid development)
CXR/CT obtained indicating diffuse R sided infiltrate, nodular/diffuse, but will need repeated imaging to r/o underlying malignancy
Other imaging reviewed--CXR and CT AP 2022 showing no nodules/suspicion for developing malignancy
She had prior CXR with aspiration PNA noted, RUL disease, no FU imaging completed
She is at risk for malignancy given her smoking history
Recommend IV abx for now, obtain sputum culture if able
Legionella, strep Ag sent, MRSA screen
Will check PCT as well
If bronchoscopy if needed, will need to risk assess--as she would be high risk for complications given her lung disease
This can also be arranged as OP pending treatment and repeat imaging in 6-8 weeks
proBNP on admission negative
Prior ECHO results are reviewed indicating preserved EF
She does have history of HFpEF
Resume home meds
Smoking history noted--quit [address]
Will need outpatient pulmonary evaluation in our office for PFTs and 6MWT
Reviewed with patient
We will follow
Diagnostic Data
Chest X-Ray: 07/20/24- Severe right mid to lower lung zone airspace disease/pneumonia. Suspect underlying right hilar mass/neoplasm. Recommend further evaluation with dedicated CT.
02/19/23- Bilateral parenchymal opacities, likely representing bilateral pneumonia. Interval increase in right upper lobe parenchymal opacity, highly suggestive of increasing pneumonia.
07/23/21- No radiographic evidence of acute cardiopulmonary abnormality.
CT Scan: CHEST 07/21/24- 1. There is a right hilar consolidation extending into the right upper, right lower and posterior right middle lobes with surrounding groundglass opacities. Findings likely represent pneumonia with possible underlying lesion.
Recommend short interval follow-up
2. There are numerous scattered pulmonary nodules which may be infectious in nature although are concerning for metastasis.
3. Moderate apical predominant paraseptal and centrilobular emphysematous changes.
4. 2.2 cm centrally hypodense lesion within the anterior right hepatic lobe appears new from prior CTA in 2022 and concerning for metastasis. Consider dedicated MRI abdomen for further evaluation.
CT AP 06/28/22- lung bases clear
Echo: 07/21/24- Left ventricle is small in size. Normal left ventricular systolic function. Left ventricular ejection fraction is 55% by volumetric assessment. Normal regional wall motion. Normal left ventricular wall thickness. Normal diastolic
function. Thickened mitral valve leaflets. Mitral valve opens normally. Mitral annular calcification. Mild mitral regurgitation. Calcified aortic valve. Aortic sclerosis without stenosis. Trileaflet aortic valve. Trace aortic regurgitation is seen.
Small anterior pericardial effusion. Since prior echocardiogram August 2023 which was reviewed, there is a small anterior pericardial effusion which is of no hemodynamic significance.
09/25/23- 1. Small left ventricle with preserved systolic function, ejection fraction 55-60%
2. Thickened mitral leaflets, mitral annular calcification, mild mitral regurgitation and normal left atrium
3. Marked aortic sclerosis without stenosis. No aortic regurgitation
4. Normal right heart with pulmonary artery systolic pressure of 33 mmHg.
In January 2023 the basal inferior and inferoseptal segments were hypokinetic and the ejection fraction was 45-50%. Mitral regurgitation was moderate, and the pulmonary artery systolic pressure was 45 mmHg.
PFT's:
PFT-02/14/2012- FVC 1.79 or 70%, FEV1 1.24 or 65%, ratio 69%. TLC 3.60 or 81%, DLCO 15.44, 81%
[place] 11/10/2019- FVC 1.81 or 83%, FEV1 1.25 or 79%, Ratio 71%.
ZACHARY: 05/20/2019-FVC: 1.75 L / 80 %; FEV1: 1.14 L / 70 % ; Ratio: 65 %; BD response: NoStable; moderate obstruction
[id number]:FVC: 1.87L/ 85%; FEV1: 1.27L/ 79%; ratio: 68% no BD response
PFT 06/14/20-FEV1 1.12 L-77%, FVC 1.71 L-86%, TLC 89%, RV 88%, DLCO 31%. Mild obstruction with normal lung findings and severe reduction in diffusing capacity.
Spirometry -FEV1 920 mL-64%, FVC 1.49 L-75%, 80% BD response. Moderate obstruction.
PFT 09/12/21-FEV1 1.25 L-52%, FVC 2 L-63%, unable to perform lung volumes, DLCO 30%. Moderate obstruction and severe reduction in diffusing capacity.
Spirometry 03/19/22-FEV1 1.01 L-71%, FVC 1.41 L-73%, no significant improvement postbronchodilator. Mild obstruction.
PFT 09/03/22-FEV1 1.22-84%, FVC 1.94-97%, no significant BD response, unable to perform lung volumes, DLCO 31%, DLCO/VA 38%. Mild obstruction and severe reduction in diffusing capacity.
Spirometry 05/16/23-FEV1 740 mL-54%, FVC 1.24-65%, 8% improvement postbronchodilator. Moderate obstruction.
PFT 12/02/23-FEV1 1.09-81%, FVC 1.88-102%, 9% improvement postbronchodilator. Lung volumes unable to be performed. DLCO 47%, DLCO/VA 55%. Mild obstruction. Moderate reduction in diffusing capacity.
6 minute walk test-11/10/2019- baseline of 97% on RA, desaturaiton to 96%. HR 62-89bpm. ambulated 600 feet.
6 minute walk test-05/20/2019--POx at rest 96%; Johny: 95%,HR: 62-93 bpm, distance 300ft
6 minute walk test 06/14/20-Ambulated 600 feet with desaturation johny of 90% maximal heart rate of 91. No supplemental oxygen required.
6 minute walk test 03/14/21-Ambulated 450 feet with a desaturation johny of 99% and maximum heart rate of 89. No oxygen requirement.
6 minute walk test 09/12/21-Ambulated 525 feet with a desaturation johny of 97% maximum heart rate of 90. Maximum dyspnea scale score 2.0. No Oxygen required.
6 minute walk test 12/02/23-ambulated 752, desaturation johny 94% maximum heart rate of 73. Maximum dyspnea scale score 1. No supplemental oxygen needed.
Reports and relevant images were personally reviewed.
Total time spent on this consultation __77__ minutes which includes review of history, physical exam, medications, laboratory data, personal review of imaging, extensive review of outpatient records, discussion with care team and respiratory therapy.
[2024-07-21] MEDS: PT'S OWN INSULIN PUMP - HumaLOG 5 UNIT SC (13:03)
[2024-07-21] MEDS: UNASYN IV ×2 (15:15→20:09)
--- NOTE | 2024-07-21 15:45 | CM ---
Patient seen at bedside in ED with physicians. Patient stated that she lives alone in a 2 story apartment with a dog. Patient states that her daughter is helpful for resources but patient is still independent and driving. Patient PCP is Dr. Fay
and she uses the [facility] in [place] for any short term medication needs. Patient daughter Kymberly [phone] stated that she is caring for her own who has Lewey body dementia and her mother. Patient has been resistant to using a walker
or any assistive devices. Patient daughter has been talking to her mother about having assistance in the home. Patient has had [facility] in the past and been at [facility] for SNF approx 2-3 years ago. Patient daughter expressed open to a plan for
family meeting tomorrow at 4pm in patient room. CM will continue to follow for discharge planning needs.
Plan; home with VN vs SNF
--- NOTE | 2024-07-21 16:02 | PTOTSP ---
Dysphagia Eval
Oral/pharyngeal swallowing suspected to be grossly within functional limits based on clinical bedside swallowing evaluation. However, patient with acute on chronic dysphagia risk factors (i.e., acute hypoxic respiratory failure, large right sided
infiltrate/PNA with concern for possible aspiration, malignancy cannot be ruled out, COPD exacerbation; PMH COPD, CHF, aspiration PNA in 2022?).
Recommend:
1. Regular, Thin Liquids
2. Medications as best tolerated (crush large pills as needed)
3. Strategies: upright to 90 degrees, small single sips/bites, slow rate with breaks for breathing
4. Video swallow study to r/o silent aspiration given concern for possible aspiration PNA
[2024-07-21] MEDS: PT'S OWN INSULIN PUMP - HumaLOG 5.8 UNIT SC (16:36)
[2024-07-21 17:08] LABS: Procalcitonin 0.18 ng/ml (0.0-0.25)
[2024-07-21 17:37] LABS: Glucose - Point of Care 138 mg/dl (70-99)
[2024-07-21 18:37] VITALS: BP 144/55
[2024-07-21] MEDS: LIPITOR 80 MG PO (20:10)
[2024-07-21 21:04] LABS: Glucose - Point of Care 122 mg/dl (70-99)
[2024-07-21] MEDS: NEURONTIN 100 MG PO (21:38)
[2024-07-21] MEDS: PT'S OWN INSULIN PUMP - HumaLOG SC (21:38)
[2024-07-21] MEDS: TYLENOL 650 MG PO (23:09)
[2024-07-21 23:10] VITALS: BP 175/58
[2024-07-22] MEDS: UNASYN IV ×4 (01:09→19:48)
--- NOTE | 2024-07-22 03:20 | DOWNTIME ---
There was a [employer] Client Provider Scribe Downtime on 07/22/2024 from 0200 to 07/23/2023 at 0318 .
[2024-07-22] MEDS: SYNTHROID 100 MCG PO (05:01)
[2024-07-22 05:12] VITALS: BMI 20.3
[2024-07-22] MEDS: VENTOLIN NEBULES 2.5 MG INH (05:37)
[2024-07-22 07:13] LABS: Hematocrit 35.5 % (37.0-47.0); Mean Corp Hgb Conc. 33.8 g/dL (33.0-37.0); Mean Corpuscular Hgb 30.5 pg (27.0-31.0); Mean Corpuscular Volume 90.3 fL (81.0-99.0); Mean Platelet Volume 8.9 fL (7.4-10.4); Platelet Count 326 10^3/uL (130-400); Red Blood Cell Count 3.93 10^6/uL (4.20-5.40); Red Cell Dist. Width 14.5 % (11.5-14.5); White Blood Cell Count 13.4 10^3/uL (4.8-10.8)
[2024-07-22 07:17] LABS: Blood Urea Nitrogen 20 mg/dl (7-17); Calcium 8.6 mg/dl (8.4-10.2); Carbon Dioxide 26 mmol/L (22-30); Chloride 105 mmol/L (98-107); Estimated Creatinine Clearance 36 ml/min; Glucose 126 mg/dl (70-99); Potassium 4.5 mmol/L (3.5-5.1); Sodium 139 mmol/L (135-145); eGFR > 60.00
[2024-07-22 07:20] VITALS: BP 154/54
[2024-07-22] MEDS: NORVASC 2.5 MG PO ×2 (07:30→19:47)
[2024-07-22] MEDS: TOPROL XL 12.5 MG PO (07:30)
[2024-07-22] MEDS: DALIRESP 500 MCG PO (07:30)
[2024-07-22] MEDS: VIBRAMYCIN 100 MG PO ×2 (07:30→19:47)
[2024-07-22] MEDS: PROTONIX 40 MG PO (07:31)
[2024-07-22] MEDS: ASPIR LOW (ENTERIC COATED) 81 MG PO (07:31)
[2024-07-22 07:45] LABS: Glucose - Point of Care 135 mg/dl (70-99)
[2024-07-22] MEDS: DUONEB 3 ML INH ×4 (07:56→20:15)
--- NOTE | 2024-07-22 09:05 | W.PN.PUL3 ---
Today's Communication / Plan
-
Repeat CXR appears to be worsening
MRSA screen positive, continue abx for now
VSE planning, speech following
High risk situation given her history of lung disease COPD/former heavy smoker/emphysema
Fam mtg today
Assessment
-
Patient is an 83-year-old female with previous history of COPD, diabetes, CAD, PAD, hypertension presenting with progressive shortness of breath over the past week with associated nonproductive coughing. She has noticed orthopnea and lower
extremity swelling CT obtained demonstrating large right-sided diffuse nodular consolidation. She is placed on IV antibiotics for presumed pneumonia but there is suspicion of possible underlying malignancy. We are consulted for evaluation.
Acute hypoxic respiratory failure
Large r sided infiltrate, cannot rule out malignancy
Progressive SOB x 1 week
Leukocytosis
Conditions present [employer]
COPD-follows wt Dr Martínez
Last PFT 12/02/23-FEV1 1.09-81%
Former tobacco use - [id number] 2016
PAD s/p Status post bilateral femoral endarterectomy with angioplasty, 07/26/21
Non-insulin dependent type 2 diabetes mellitus
History of peripheral neuropathy
History of aspiration pneumonia - 01/2023
CAD s/p RCA stent 01/2023
TIA
Hypothyroidism
HLD
HFpEF
HTN
BL Carotid disease
Plan
Hypoxemia noted on arrival, she is placed on 4L NC
No oxygen was needed in the past at home/baseline, prior 6MWT showing O2 johny 90-94%
Home O2 evaluation eventually
Prior history of lung disease is noted --- extensive records reviewed from OP
She follows with Dr. Martínez as an outpatient for history of COPD. Has emphysema noted on prior CT
Last PFT showing mild obstruction, she is maintained on inhaler and had been stable, last seen 11/2023 in office
Suspect patient has PNA more likely, given complaints x 1 week (rapid development)
CXR/CT obtained indicating diffuse R sided infiltrate, nodular/diffuse, but will need repeated imaging to r/o underlying malignancy
Other imaging reviewed--CXR and CT AP 2022 showing no nodules/suspicion for developing malignancy
She had prior CXR with aspiration PNA noted, RUL disease, no FU imaging completed
She is at risk for malignancy given her smoking history
Recommend IV abx for now, obtain sputum culture if able
Legionella, strep Ag sent neg, MRSA screen positive
PCT negative
If bronchoscopy if needed, will need to risk assess--as she would be high risk for complications given her lung disease
This can also be arranged as OP pending treatment and repeat imaging in 6-8 weeks
proBNP on admission negative
Prior ECHO results are reviewed indicating preserved EF
She does have history of HFpEF
Resume home meds
Smoking history noted--quit 2016
Em[address] on [address]
Speech eval to r/o aspiration
VSE planning
Will need outpatient pulmonary evaluation in our office for PFTs and 6MWT
Reviewed with patient
Family mtg scheduled for later today
Diagnostic Data
Chest X-Ray: 07/20/24- Severe right mid to lower lung zone airspace disease/pneumonia. Suspect underlying right hilar mass/neoplasm. Recommend further evaluation with dedicated CT.
02/19/23- Bilateral parenchymal opacities, likely representing bilateral pneumonia. Interval increase in right upper lobe parenchymal opacity, highly suggestive of increasing pneumonia.
07/23/21- No radiographic evidence of acute cardiopulmonary abnormality.
CT Scan: CHEST 07/21/24- 1. There is a right hilar consolidation extending into the right upper, right lower and posterior right middle lobes with surrounding groundglass opacities. Findings likely represent pneumonia with possible underlying lesion.
Recommend short interval follow-up
2. There are numerous scattered pulmonary nodules which may be infectious in nature although are concerning for metastasis.
3. Moderate apical predominant paraseptal and centrilobular emphysematous changes.
4. 2.2 cm centrally hypodense lesion within the anterior right hepatic lobe appears new from prior CTA in 2022 and concerning for metastasis. Consider dedicated MRI abdomen for further evaluation.
CT AP 06/28/22- lung bases clear
Echo: 07/21/24- Left ventricle is small in size. Normal left ventricular systolic function. Left ventricular ejection fraction is 55% by volumetric assessment. Normal regional wall motion. Normal left ventricular wall thickness. Normal diastolic
function. Thickened mitral valve leaflets. Mitral valve opens normally. Mitral annular calcification. Mild mitral regurgitation. Calcified aortic valve. Aortic sclerosis without stenosis. Trileaflet aortic valve. Trace aortic regurgitation is seen.
Small anterior pericardial effusion. Since prior echocardiogram August 2023 which was reviewed, there is a small anterior pericardial effusion which is of no hemodynamic significance.
09/25/23- 1. Small left ventricle with preserved systolic function, ejection fraction 55-60%
2. Thickened mitral leaflets, mitral annular calcification, mild mitral regurgitation and normal left atrium
3. Marked aortic sclerosis without stenosis. No aortic regurgitation
4. Normal right heart with pulmonary artery systolic pressure of 33 mmHg.
In January 2023 the basal inferior and inferoseptal segments were hypokinetic and the ejection fraction was 45-50%. Mitral regurgitation was moderate, and the pulmonary artery systolic pressure was 45 mmHg.
PFT's:
PFT-02/14/2012- FVC 1.79 or 70%, FEV1 1.24 or 65%, ratio 69%. TLC 3.60 or 81%, DLCO 15.44, 81%
[place] 11/10/2019- FVC 1.81 or 83%, FEV1 1.25 or 79%, Ratio 71%.
[facility]: 05/20/2019-FVC: 1.75 L / 80 %; FEV1: 1.14 L / 70 % ; Ratio: 65 %; BD response: NoStable; moderate obstruction
[id number]:FVC: 1.87L/ 85%; FEV1: 1.27L/ 79%; ratio: 68% no BD response
PFT 06/14/20-FEV1 1.12 L-77%, FVC 1.71 L-86%, TLC 89%, RV 88%, DLCO 31%. Mild obstruction with normal lung findings and severe reduction in diffusing capacity.
Spirometry -FEV1 920 mL-64%, FVC 1.49 L-75%, 80% BD response. Moderate obstruction.
PFT 09/12/21-FEV1 1.25 L-52%, FVC 2 L-63%, unable to perform lung volumes, DLCO 30%. Moderate obstruction and severe reduction in diffusing capacity.
Spirometry 03/19/22-FEV1 1.01 L-71%, FVC 1.41 L-73%, no significant improvement postbronchodilator. Mild obstruction.
PFT 09/03/22-FEV1 1.22-84%, FVC 1.94-97%, no significant BD response, unable to perform lung volumes, DLCO 31%, DLCO/VA 38%. Mild obstruction and severe reduction in diffusing capacity.
Spirometry 05/16/23-FEV1 740 mL-54%, FVC 1.24-65%, 8% improvement postbronchodilator. Moderate obstruction.
PFT 12/02/23-FEV1 1.09-81%, FVC 1.88-102%, 9% improvement postbronchodilator. Lung volumes unable to be performed. DLCO 47%, DLCO/VA 55%. Mild obstruction. Moderate reduction in diffusing capacity.
6 minute walk test-11/10/2019- baseline of 97% on RA, desaturaiton to 96%. HR 62-89bpm. ambulated 600 feet.
6 minute walk test-05/20/2019--POx at rest 96%; Johny: 95%,HR: 62-93 bpm, distance 300ft
6 minute walk test 06/14/20-Ambulated 600 feet with desaturation johny of 90% maximal heart rate of 91. No supplemental oxygen required.
6 minute walk test 03/14/21-Ambulated 450 feet with a desaturation johny of 99% and maximum heart rate of 89. No oxygen requirement.
6 minute walk test 09/12/21-Ambulated 525 feet with a desaturation johny of 97% maximum heart rate of 90. Maximum dyspnea scale score 2.0. No Oxygen required.
6 minute walk test 12/02/23-ambulated 752, desaturation johny 94% maximum heart rate of 73. Maximum dyspnea scale score 1. No supplemental oxygen needed.
Reports and relevant images were personally reviewed.
Total time spent on this consultation __57__ minutes which includes review of history, physical exam, medications, laboratory data, personal review of imaging, extensive review of outpatient records, discussion with care team and respiratory therapy.
Subjective Data
-
Date of Service:
Date of Service: July 22, 2024
Chief Complaint: Pulmonary Follow Up
Subjective:
Still SOB, no worsening but no better
Has BL heel pain
Restless in the bed
Objective Data
Data Reviewed
Vital Signs / I&O / Oxygen:
Vital Signs
Temp Pulse Resp BP Pulse Ox
98.1 F 70 16 154/54 93
07/22/24 07:20 07/22/24 07:57 07/22/24 07:57 07/22/24 07:20 07/22/24 07:20
Intake and Output
07/21/24 07/22/24 07/23/24
06:59 06:59 06:59
Intake Total 640 / 640
Output Total 300 / 300
Balance 340 / 340
SaO2 93
Nasal Cannula flow liters per 4
minute
Physical Exam
General: Respiratory Distress (agitated, restless in the bed), Poor Appetite and Other (NAD)
HEENT: Normocephalic, Anicteric and Moist Mucous Membranes
Cardiovascular: S1-S2, Regular Rhythm and Peripheral Edema (trace, skin wounds)
Respiratory: Crackles and Non-Labored Respirations
GI: Soft, Non Distended and Non Tender
Neurology: Awake, Alert, Oriented and No Motor Deficits
Skin: Warm, Dry and Good Color
Labs/Micro/Reports
Lab Data
07/22/24 06:09
07/22/24 06:09
Microbiology
07/21/24 21:47 Urine Legionella Urinary Antigen - Final
Negative for Legionella pneumophila Serogroup 1 antigen.
A negative result does not rule out the possiblity of
Legionella infection due to other serogroups or species of
Legionella. Clinical correlation is recommended.
07/21/24 21:47 Urine Streptococcus pneumoniae Antigen (M - Final
Negative for Streptococcus pneumoniae antigen.
A negative result does not exclude infection with
Streptococcus pneumoniae. Clinical correlation is
recommended.
07/21/24 06:03 Nose MRSA Screen - Final
Staph aureus MRSA
07/20/24 19:14 Nasal Swab Influenza Types A & B (BRENDA) - Final
Negative for Influenza A & B, NAAT
Negative results must be combined with clinical observations
and patient history.
Nucleic Acid Amplification test (NAAT)performed on the
Graph[employer] platform.
[2024-07-22] MEDS: PT'S OWN INSULIN PUMP - HumaLOG 6 UNIT SC (09:48)
[2024-07-22 12:11] LABS: Glucose - Point of Care 100 mg/dl (70-99)
[2024-07-22] MEDS: TYLENOL 650 MG PO (12:36)
[2024-07-22 13:58] VITALS: PULSE 77; O2SAT 97
[2024-07-22] MEDS: PT'S OWN INSULIN PUMP - HumaLOG 5 UNIT SC (14:42)
[2024-07-22 15:00] VITALS: BP 155/49
--- NOTE | 2024-07-22 15:09 | PTOTSP ---
Videofluoroscopic swallow study
WFL oral, WFL-mild pharyngeal stage of swallowing. No aspiration.
Recommend:
1. Regular, Thin Liquids
2. Medications as best tolerated (crush large pills as needed)
3. Strategies: upright to 90 degrees, small single sips/bites, slow rate with breaks for breathing, multiple swallows to clear throat of residue (independent with this)
No further dysphagia tx warranted. Please reconsult as appropriate.
--- NOTE | 2024-07-22 16:04 | W.PN.HOSP.TC ---
Addendum entered and electronically signed by Luz Shafer MD 07/22/24 16:13:
I saw and evaluated the patient independently. I reviewed the resident�s note and agree with findings and plan as documented by Dr. Ríos.
GENERAL: well developed, well nourished, female in no apparent distress
HEENT: NC/AT --O2 NC
HEART: regular rate and rhythm, +S1, +S2, COBY
LUNGS : wheezing RUL, rhonchi mid lung field
ABDOM: soft, nontender, nondistended, + bowel sounds
EXT: no cyanosis, clubbing, or edema
NEUROLOGIC: grossly intact
LAD: right axillary LAD, firm nontender
Acute hypoxemic resp failure (4-5L here, none at home) due to likely COPD exacerbation from right hilar lung mass and post obstructive PNA (RLL pna)--aspiration a possible consideration--CT chest reviewed--apprec pulm consult-- change rocephin/doxy
to IV unasyn for better coverage-- strep pneumo and Legionella antigens neg--Speech eval--consideration for biopsy of axillary LAD vs bronch or needle Bx of RLM--will need to discuss with patient, family --passed VSE
COPD--Likely COPD exacerbation(dyspnea and wheezing present)--Not on home O2--Continue Daliresp (Roflumilast)--DuoNebs ATC and as needed--apprec pulm input
orthopnea/minimal LE edema--May be due to pneumonia or hilar mass--Echo reveals echo reveals LVEF 55% with normal regional wall motion and left ventricle wall thickness--doubt any CHF reason or cause
ASCVD (Hx of CAD, PAD)--s/p coronary stents, PAD stents and b/l femoral endarterectomies--Continue aspirin uninterrupted--Hold Plavix for potential lung biopsy
Essential hypertension--Continue amlodipine and Nebivolol
Hypothyroidism--Continue levothyroxine
Type 1 diabetes mellitus--Continue home insulin pump--accuchecks with coverage-- HGB A1C 7.3
code status --Full code
DVT proph --SCDs
Original Note:
Today's Communication/Plan
-
Pending family discussion
MRSA positive
Continue Unasyn and doxycycline
VSE reveals mild pharyngeal stage of swallowing, recommend regular thin liquids
Assessment / Plan
Assessment / Plan
Impression
Right lower lobe pneumonia
Right hilar mass
Acute hypoxic respiratory failure
History of COPD
Dyspnea on exertion/orthopnea/LE edema
History of PAD and CAD
Essential hypertension
Hypothyroidism
Type 1 diabetes mellitus
Plan
Right lower lobe pneumonia likely due to aspiration?
Right hilar mass seen on chest x-ray
Patient is afebrile with no leukocytosis
Chest CT with IV contrast for workup of hilar mass--- lung malignancy?
Appreciate pulmonology input
Changed to Unasyn for anaerobic coverage and postobstructive pneumonia. Continue doxycycline
Negative strep pneumo and Legionella antigen
MRSA positive
Repeat chest x-ray shows diffuse airspace consolidation within the right lung, prominence of right hilar region
VSE-recommend regular thin liquids
Family discussion pending
Acute hypoxic respiratory failure
Suspect due to aspiration pneumonia/COPD exacerbation/hilar mass
Currently on 4 to 5 L of oxygen
Wean as able
History of COPD
Likely COPD exacerbation(dyspnea and wheezing present)
Not on home O2
Continue Daliresp(Roflumilast)
DuoNebs ATC and as needed
Pulmonology eval
Dyspnea on exertion/orthopnea/LE edema
May be due to pneumonia or hilar mass
Echo reveals echo reveals LVEF 55% with normal regional wall motion and left ventricle wall thickness.
ASCVD (Hx of CAD, PAD)
s/p coronary stents, PAD stents and b/l femoral endarterectomies.
Continue aspirin uninterrupted
Hold Plavix for potential lung biopsy
Essential hypertension
Continue amlodipine and Nebivolol
Hypothyroidism
Continue levothyroxine
Type 1 diabetes mellitus
Continue home insulin pump
Monitor blood glucose
Diabetic diet
Full code
SCDs
Anticipated Discharge: > 48 hours
Subjective/Interval History
-
Date of Service: July 22, 2024
No overnight events
Objective Data
-
Labs:
Laboratory Results
07/22/24
06:09
WBC 13.4 H
Hgb 12.0
Hct 35.5 L
Plt Count 326
Sodium 139
Potassium 4.5
Chloride 105
Carbon Dioxide 26
BUN 20 H
Creatinine 0.8
Glucose 126 H
Calcium 8.6
Vital Signs:
Vital Signs
Temp Pulse Resp BP Pulse Ox
98.1 F 77 18 154/54 93
07/22/24 07:20 07/22/24 15:57 07/22/24 15:57 07/22/24 07:20 07/22/24 07:20
I&O
07/21/24 07/22/24 07/23/24
06:59 06:59 06:59
Intake Total 640 / 640
Output Total 300 / 300
Balance 340 / 340
Review of Systems
-
All other systems: Reviewed and negative
Physical Exam
-
General: No Apparent Distress and Comfortable
HEENT: Normocephalic and Atraumatic
Respiratory: Decreased Breath Sounds
Cardiac: Regular Rhythm, S1/S2 and Murmur
GI: Nondistended
Musculoskeletal: No Edema
Neuro: AO x 3
Psych: Calm
Data Reviewed
-
Labs: Labs Reviewed by me and Discussed with Physician
--- NOTE | 2024-07-22 16:17 | CM ---
Family meeting to discuss options for next steps with daughter and physician.
[2024-07-22] MEDS: LIPITOR 80 MG PO (17:17)
[2024-07-22 17:18] LABS: Glucose - Point of Care 91 mg/dl (70-99)
[2024-07-22] MEDS: PT'S OWN INSULIN PUMP - HumaLOG 0.62 UNIT SC (18:05)
[2024-07-22 19:46] VITALS: BP 181/57
[2024-07-22 21:13] LABS: Glucose - Point of Care 96 mg/dl (70-99)
[2024-07-22] MEDS: NEURONTIN 100 MG PO (21:34)
[2024-07-22] MEDS: PT'S OWN INSULIN PUMP - HumaLOG SC (22:15)
[2024-07-22 23:10] VITALS: BP 154/53
[2024-07-23] MEDS: VENTOLIN NEBULES 2.5 MG INH (01:16)
[2024-07-23] MEDS: UNASYN IV ×3 (01:26→14:15)
[2024-07-23] MEDS: SYNTHROID 100 MCG PO (05:31)
[2024-07-23 05:51] VITALS: BMI 20.9
[2024-07-23 06:26] LABS: Hematocrit 32.6 % (37.0-47.0); Hemoglobin 11.1 g/dL (12.0-16.0); Mean Corpuscular Hgb 30.7 pg (27.0-31.0); Mean Corpuscular Volume 90.3 fL (81.0-99.0); Platelet Count 301 10^3/uL (130-400); Red Blood Cell Count 3.61 10^6/uL (4.20-5.40); Red Cell Dist. Width 14.3 % (11.5-14.5); White Blood Cell Count 13.1 10^3/uL (4.8-10.8)
[2024-07-23 06:46] LABS: Blood Urea Nitrogen 26 mg/dl (7-17); Calcium 8.4 mg/dl (8.4-10.2); Carbon Dioxide 25 mmol/L (22-30); Chloride 105 mmol/L (98-107); Estimated Creatinine Clearance 32 ml/min; Glucose 140 mg/dl (70-99); Magnesium 1.9 mg/dl (1.6-2.3); Potassium 4.4 mmol/L (3.5-5.1); Sodium 137 mmol/L (135-145); eGFR > 60.00
[2024-07-23 07:00] VITALS: BP 153/62
[2024-07-23] MEDS: DUONEB 3 ML INH ×4 (07:11→19:38)
[2024-07-23 07:59] LABS: Glucose - Point of Care 135 mg/dl (70-99)
[2024-07-23] MEDS: DALIRESP 500 MCG PO (08:03)
[2024-07-23] MEDS: VIBRAMYCIN 100 MG PO (08:03)
[2024-07-23] MEDS: PROTONIX 40 MG PO (08:03)
[2024-07-23] MEDS: TOPROL XL 12.5 MG PO (08:03)
[2024-07-23] MEDS: ASPIR LOW (ENTERIC COATED) 81 MG PO (08:03)
[2024-07-23] MEDS: NORVASC 2.5 MG PO ×2 (08:04→21:29)
[2024-07-23] MEDS: PT'S OWN INSULIN PUMP - HumaLOG 0.09 UNIT SC (08:09)
--- NOTE | 2024-07-23 08:10 | PN.DE.MGMTRT ---
Insulin Management
- -
07/23/2024: Diabetes Management Consult
83 year old female admitted 07/21 with Acute hypoxemic resp failure (4-5L here, none at home) due to likely COPD exacerbation from right hilar lung mass and post obstructive PNA (RLL PNA).
PMH includes COPD, bilateral femoral endarterectomy 07/20 and type 1 diabetes. Prior to admission was using tandem insulin pump with control IQ, Humalog insulin, Dexcom G 6, and sure steel infusion sets. She follows with endocrine in [place].
A1C 7.3%, Cr 0.9, eGFR >60
Pt awake, alert, sitting up in chair with increased WOB and wheezing. Able to discuss diabetes care plan.
Pump in place with CGM. Patient states that her daughter usually helps with the pump at home.
Glucose in range, states she has 10 units of insulin left in her pump and that her Dtr will not be in until later.
She has been administering bolus at meal times.
Pump settings as follows:
Basal Correction CHO ratio target
12am 0.1 1:90 1:17 110
3am 0.35 1:90 1:17 110
7am 0.6 1:90 1:13 110
11:30am 0.325 1:90 1:14 110
5pm 0.4 1:90 1:20 110
8:30pm 0.15 1:90 1:27 110
24 hour basal total 7.988 units
Discussed with nurse and instructed on use of bedside insulin pump work sheet. Will cont to follow
Diabetes History
- -
Type of Diabetes: 1
Pre-Admission Diabetes Regimen
07/23/24
05:52
Creatinine 0.9
Lab Results
Hemoglobin A1c 7.3 % (4.0-5.6) H 07/21/24 04:51
Insulin Pump Settings
IP Diabetes Regimen
07/22/24 07/22/24 07/22/24
12:09 17:17 21:11
Glucose
POC Glucose 100 H 91 96
07/23/24 07/23/24
05:52 07:58
Glucose 140 H
POC Glucose 135 H
Meal type: Dinner
Meal type: Lunch
Meal type: Breakfast
Amount consumed: 100%
Amount consumed: 100%
Amount consumed: 100%
Patient Education
--- NOTE | 2024-07-23 09:10 | W.PN.PUL3 ---
Today's Communication / Plan
-
LN biopsy today, IR consulted 07/23
Can plan for repeat CT early next week if further biopsy/planning needed
Continue abx, nebs, supportive care
Add vest, acapella, IS
OOB as tolerated, wean O2 as able
Assessment
-
Patient is an 83-year-old female with previous history of COPD, diabetes, CAD, PAD, hypertension presenting with progressive shortness of breath over the past week with associated nonproductive coughing. She has noticed orthopnea and lower
extremity swelling CT obtained demonstrating large right-sided diffuse nodular consolidation. She is placed on IV antibiotics for presumed pneumonia but there is suspicion of possible underlying malignancy. We are consulted for evaluation.
Acute hypoxic respiratory failure
Large r sided infiltrate, cannot rule out malignancy
Progressive SOB x 1 week
Leukocytosis
Axillary LN s/p biopsy 07/23
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
COPD-follows wtih Dr Martínez
Last PFT 12/02/23-FEV1 1.09-81%
Former tobacco use - 58-[id number]-quit 2016
PAD s/p Status post bilateral femoral endarterectomy with angioplasty, 07/26/21
Non-insulin dependent type 2 diabetes mellitus
History of peripheral neuropathy
History of aspiration pneumonia - 01/2023
CAD s/p RCA stent 01/2023
TIA
Hypothyroidism
HLD
HFpEF
HTN
BL Carotid disease
Plan
Hypoxemia noted on arrival, she is placed on 4L NC
No oxygen was needed in the past at home/baseline, prior 6MWT showing O2 johny 90-94%
Home O2 evaluation eventually
Prior history of lung disease is noted --- extensive records reviewed from OP
She follows with Dr. Martínez as an outpatient for history of COPD. Has emphysema noted on prior CT
Last PFT showing mild obstruction, she is maintained on inhaler and had been stable, last seen 11/2023 in office
Suspect patient has PNA more likely, given complaints x 1 week (rapid development)
CXR/CT obtained indicating diffuse R sided infiltrate, nodular/diffuse, but will need repeated imaging to r/o underlying malignancy
Other imaging reviewed--CXR and CT AP 2022 showing no nodules/suspicion for developing malignancy
She had prior CXR with aspiration PNA noted, RUL disease, no FU imaging completed
She is at risk for malignancy given her smoking history
Recommend IV abx for now, obtain sputum culture if able
Legionella, strep Ag sent neg, MRSA screen positive
PCT negative
If bronchoscopy if needed, will need to risk assess--as she would be high risk for complications given her lung disease
This can also be arranged as OP pending treatment and repeat imaging in 6-8 weeks
Consideration for earlier CT planning next week if needed for diagnostic eval
Family was agreeable to LN biopsy
IR consulted for biopsy today 07/23
proBNP on admission negative
Prior ECHO results are reviewed indicating preserved EF
She does have history of HFpEF
Resume home meds
Smoking history noted--quit 2016
[address] on [address]
Speech eval to r/o aspiration
VSE planning--results showing WFL oral, WFL-mild pharyngeal stage of swallowing. No aspiration
Resumed on regular diet
Will need outpatient pulmonary evaluation in our office for PFTs and 6MWT
Reviewed with patient
Diagnostic Data
Chest X-Ray: 07/20/24- Severe right mid to lower lung zone airspace disease/pneumonia. Suspect underlying right hilar mass/neoplasm. Recommend further evaluation with dedicated CT.
02/19/23- Bilateral parenchymal opacities, likely representing bilateral pneumonia. Interval increase in right upper lobe parenchymal opacity, highly suggestive of increasing pneumonia.
07/23/21- No radiographic evidence of acute cardiopulmonary abnormality.
CT Scan: CHEST 07/21/24- 1. There is a right hilar consolidation extending into the right upper, right lower and posterior right middle lobes with surrounding groundglass opacities. Findings likely represent pneumonia with possible underlying lesion.
Recommend short interval follow-up
2. There are numerous scattered pulmonary nodules which may be infectious in nature although are concerning for metastasis.
3. Moderate apical predominant paraseptal and centrilobular emphysematous changes.
4. 2.2 cm centrally hypodense lesion within the anterior right hepatic lobe appears new from prior CTA in 2022 and concerning for metastasis. Consider dedicated MRI abdomen for further evaluation.
CT AP 06/28/22- lung bases clear
Echo: 07/21/24- Left ventricle is small in size. Normal left ventricular systolic function. Left ventricular ejection fraction is 55% by volumetric assessment. Normal regional wall motion. Normal left ventricular wall thickness. Normal diastolic
function. Thickened mitral valve leaflets. Mitral valve opens normally. Mitral annular calcification. Mild mitral regurgitation. Calcified aortic valve. Aortic sclerosis without stenosis. Trileaflet aortic valve. Trace aortic regurgitation is seen.
Small anterior pericardial effusion. Since prior echocardiogram August 2023 which was reviewed, there is a small anterior pericardial effusion which is of no hemodynamic significance.
09/25/23- 1. Small left ventricle with preserved systolic function, ejection fraction 55-60%
2. Thickened mitral leaflets, mitral annular calcification, mild mitral regurgitation and normal left atrium
3. Marked aortic sclerosis without stenosis. No aortic regurgitation
4. Normal right heart with pulmonary artery systolic pressure of 33 mmHg.
In January 2023 the basal inferior and inferoseptal segments were hypokinetic and the ejection fraction was 45-50%. Mitral regurgitation was moderate, and the pulmonary artery systolic pressure was 45 mmHg.
PFT's:
PFT-02/14/2012- FVC 1.79 or 70%, FEV1 1.24 or 65%, ratio 69%. TLC 3.60 or 81%, DLCO 15.44, 81%
Odonnell 11/10/2019- FVC 1.81 or 83%, FEV1 1.25 or 79%, Ratio 71%.
ZACHARY: 05/20/2019-FVC: 1.75 L / 80 %; FEV1: 1.14 L / 70 % ; Ratio: 65 %; BD response: NoStable; moderate obstruction
Emxibddrll-23-47-19:FVC: 1.87L/ 85%; FEV1: 1.27L/ 79%; ratio: 68% no BD response
PFT 06/14/20-FEV1 1.12 L-77%, FVC 1.71 L-86%, TLC 89%, RV 88%, DLCO 31%. Mild obstruction with normal lung findings and severe reduction in diffusing capacity.
Spirometry 9105/15/20-FEV1 920 mL-64%, FVC 1.49 L-75%, 80% BD response. Moderate obstruction.
PFT 09/12/21-FEV1 1.25 L-52%, FVC 2 L-63%, unable to perform lung volumes, DLCO 30%. Moderate obstruction and severe reduction in diffusing capacity.
Spirometry 03/19/22-FEV1 1.01 L-71%, FVC 1.41 L-73%, no significant improvement postbronchodilator. Mild obstruction.
PFT 09/03/22-FEV1 1.22-84%, FVC 1.94-97%, no significant BD response, unable to perform lung volumes, DLCO 31%, DLCO/VA 38%. Mild obstruction and severe reduction in diffusing capacity.
Spirometry 05/16/23-FEV1 740 mL-54%, FVC 1.24-65%, 8% improvement postbronchodilator. Moderate obstruction.
PFT 12/02/23-FEV1 1.09-81%, FVC 1.88-102%, 9% improvement postbronchodilator. Lung volumes unable to be performed. DLCO 47%, DLCO/VA 55%. Mild obstruction. Moderate reduction in diffusing capacity.
6 minute walk test-11/10/2019- baseline of 97% on RA, desaturaiton to 96%. HR 62-89bpm. ambulated 600 feet.
6 minute walk test-05/20/2019--POx at rest 96%; Johny: 95%,HR: 62-93 bpm, distance 300ft
6 minute walk test 06/14/20-Ambulated 600 feet with desaturation johny of 90% maximal heart rate of 91. No supplemental oxygen required.
6 minute walk test 03/14/21-Ambulated 450 feet with a desaturation johny of 99% and maximum heart rate of 89. No oxygen requirement.
6 minute walk test 09/12/21-Ambulated 525 feet with a desaturation johny of 97% maximum heart rate of 90. Maximum dyspnea scale score 2.0. No Oxygen required.
6 minute walk test 12/02/23-ambulated 752, desaturation johny 94% maximum heart rate of 73. Maximum dyspnea scale score 1. No supplemental oxygen needed.
Reports and relevant images were personally reviewed.
Total time spent on this consultation __51__ minutes which includes review of history, physical exam, medications, laboratory data, personal review of imaging, extensive review of outpatient records, discussion with care team and respiratory therapy.
Subjective Data
-
Date of Service:
Date of Service: July 23, 2024
Chief Complaint: Pulmonary Follow Up
Subjective:
Reports no changes in complaints
She appears better, sitting in chair today
Objective Data
Data Reviewed
Vital Signs / I&O / Oxygen:
Vital Signs
Temp Pulse Resp BP Pulse Ox
98.0 F 85 14 153/62 95
07/23/24 07:00 07/23/24 08:04 07/23/24 07:14 07/23/24 08:04 07/23/24 07:14
Intake and Output
07/22/24 07/23/24 07/24/24
06:59 06:59 06:59
Intake Total 640 / 640 0 / 1760
Output Total 300 / 300
Balance 340 / 340 1760 / 1760
SaO2 95
Nasal Cannula flow liters per 5
minute
Physical Exam
General: Respiratory Distress (agitated, restless in the bed), Poor Appetite and Other (NAD)
HEENT: Normocephalic, Anicteric and Moist Mucous Membranes
Cardiovascular: S1-S2, Regular Rhythm and Peripheral Edema (trace, skin wounds)
Respiratory: Crackles and Non-Labored Respirations
GI: Soft, Non Distended and Non Tender
Neurology: Awake, Alert, Oriented and No Motor Deficits
Skin: Warm, Dry and Good Color
Labs/Micro/Reports
Lab Data
07/23/24 05:52
07/23/24 05:52
Microbiology
07/21/24 21:47 Urine Legionella Urinary Antigen - Final
Negative for Legionella pneumophila Serogroup 1 antigen.
A negative result does not rule out the possiblity of
Legionella infection due to other serogroups or species of
Legionella. Clinical correlation is recommended.
07/21/24 21:47 Urine Streptococcus pneumoniae Antigen (M - Final
Negative for Streptococcus pneumoniae antigen.
A negative result does not exclude infection with
Streptococcus pneumoniae. Clinical correlation is
recommended.
07/21/24 06:03 Nose MRSA Screen - Final
Staph aureus MRSA
07/20/24 19:14 Nasal Swab Influenza Types A & B (BRENDA) - Final
Negative for Influenza A & B, NAAT
Negative results must be combined with clinical observations
and patient history.
Nucleic Acid Amplification test (NAAT)performed on the
[employer] platform.
[2024-07-23 11:46] LABS: Glucose - Point of Care 152 mg/dl (70-99)
[2024-07-23 12:53] VITALS: BP 163/54; BP_SYST 81
--- NOTE | 2024-07-23 13:55 | W.PN.HOSP.TC ---
Addendum entered and electronically signed by Luz Shafer MD 07/23/24 14:25:
I saw and evaluated the patient independently. I reviewed the resident�s note and agree with findings and plan as documented by Dr. Ríos.
GENERAL: well developed, well nourished, female c/o SOB and trouble breathing
HEENT: NC/AT --O2 NC
HEART: regular rate and rhythm, +S1, +S2, COBY
LUNGS : wheezing RUL, rhonchi mid lung field
ABDOM: soft, nontender, nondistended, + bowel sounds
EXT: no cyanosis, clubbing, or edema
NEUROLOGIC: grossly intact
LAD: right axillary LAD, firm nontender
Acute hypoxemic resp failure (4-5L here, none at home) due to likely COPD exacerbation from right hilar lung mass and post obstructive PNA (RLL pna)--aspiration a possible consideration--CT chest reviewed--apprec pulm consult-- change rocephin/doxy
to IV unasyn to vanco/zosyn-- strep pneumo and Legionella antigens neg--Speech eval apprec--on regular diet--for biopsy of axillary LAD, today, no need to hold plavix--starting decadron to help with SOB c/o
COPD--Likely COPD exacerbation (dyspnea and wheezing present)--Not on home O2--Continue Daliresp (Roflumilast)--DuoNebs ATC and as needed--apprec pulm input
orthopnea/minimal LE edema--May be due to pneumonia or hilar mass--Echo reveals echo reveals LVEF 55% with normal regional wall motion and left ventricle wall thickness--doubt any CHF reason or cause
ASCVD (Hx of CAD, PAD)--s/p coronary stents, PAD stents and b/l femoral endarterectomies--Continue aspirin uninterrupted--Hold Plavix for potential lung biopsy
Essential hypertension--Continue amlodipine and Nebivolol
Hypothyroidism--Continue levothyroxine
Type 1 diabetes mellitus--Continue home insulin pump--accuchecks with coverage-- HGB A1C 7.3--apprec DM [employer]ER
code status --Full code
DVT proph --SCDs
Original Note:
Today's Communication/Plan
-
IRAD consult for right axillary lymph node biopsy
Decadron IV, nebs,Acapella, incentive spirometry
Changed to IV Zosyn and vancomycin
Assessment / Plan
Assessment / Plan
Impression
Right lower lobe pneumonia
Right hilar mass
Acute hypoxic respiratory failure
History of COPD
Dyspnea on exertion/orthopnea/LE edema
History of PAD and CAD
Essential hypertension
Hypothyroidism
Type 1 diabetes mellitus
Plan
Right lower lobe pneumonia likely due to aspiration/right hilar mass
Right hilar mass seen on chest x-ray
Patient is afebrile with no leukocytosis
Chest CT with IV contrast for workup of hilar mass--- lung malignancy?
Appreciate pulmonology input
Changed to Zosyn for anaerobic coverage and postobstructive pneumonia.
Negative strep pneumo and Legionella antigen
MRSA positive. Continue doxycycline
Repeat chest x-ray shows diffuse airspace consolidation within the right lung, prominence of right hilar region
VSE-recommend regular thin liquids
Consult IR for right axillary lymph node biopsy
Start IV Decadron 2 mg every 6
Acute hypoxic respiratory failure
Suspect due to aspiration pneumonia/COPD exacerbation/hilar mass
Currently on 4 to 5 L of oxygen
Wean as able
History of COPD
Likely COPD exacerbation(dyspnea and wheezing present)
Not on home O2
Continue Daliresp(Roflumilast)
DuoNebs ATC and as needed
Pulmonology eval
Dyspnea on exertion/orthopnea/LE edema
May be due to pneumonia or hilar mass
Echo reveals echo reveals LVEF 55% with normal regional wall motion and left ventricle wall thickness.
ASCVD (Hx of CAD, PAD)
s/p coronary stents, PAD stents and b/l femoral endarterectomies.
Continue aspirin uninterrupted
Hold Plavix for potential lung biopsy
Essential hypertension
Continue amlodipine and Nebivolol
Hypothyroidism
Continue levothyroxine
Type 1 diabetes mellitus
Continue home insulin pump
Monitor blood glucose
Diabetic diet
Full code
SCDs
Anticipated Discharge: > 48 hours
Subjective/Interval History
-
Date of Service: July 23, 2024
Patient reports of increased shortness of breath
Objective Data
-
Labs:
Laboratory Results
07/23/24
05:52
WBC 13.1 H
Hgb 11.1 L
Hct 32.6 L
Plt Count 301
Sodium 137
Potassium 4.4
Chloride 105
Carbon Dioxide 25
BUN 26 H
Creatinine 0.9
Glucose 140 H
Calcium 8.4
Vital Signs:
Vital Signs
Temp Pulse Resp BP Pulse Ox
98.7 F 81 16 163/54 94
07/23/24 12:53 07/23/24 12:53 07/23/24 12:53 07/23/24 12:53 07/23/24 12:53
I&O
07/22/24 07/23/24 07/24/24
06:59 06:59 06:59
Intake Total 640 / 640 1759
Output Total 300 / 300
Balance 340 / 340 1759
Review of Systems
-
All other systems: Reviewed and negative (Except mentioned)
Respiratory: Reports Trouble Breathing
Physical Exam
-
General: Comfortable
HEENT: Normocephalic and Atraumatic
Respiratory: Wheezes and Decreased Breath Sounds
Cardiac: Regular Rhythm, S1/S2 and Murmur
GI: Nondistended
Musculoskeletal: No Edema
Neuro: AO x 3
Psych: Calm
Data Reviewed
-
Labs: Labs Reviewed by me and Discussed with Physician
[2024-07-23] MEDS: TYLENOL 650 MG PO (14:15)
[2024-07-23] MEDS: PT'S OWN INSULIN PUMP - HumaLOG 7 UNIT SC (14:34)
--- NOTE | 2024-07-23 14:36 | PHA.VAN.IN ---
Assessment
- Assessment
Renal Function: Appears similar to baseline
Concomitant Antimicrobials: ZOSYN. UNASYN AND DOXYCYCLINE DC'D
- Previous Dosing Experience
Previous Regimen: NONE
AUC Dosing Plan
- Dosing Variables
Dosing Weight (kg): 46.8
Dosing CrCl (ml/min): 32
Vd coefficient (L/kg): 0.7
- Empiric Dosing
Initial / Loading Dose: 1GM
Maintenance Regimen: 500MG IV Q24H
Estimated AUC (mcg*h/mL): 501
Estimated Peak (mcg*h/mL): 29.1
Estimated Trough (mcg/ml): 14.3
Estimated Half Life (H): 22.4
Pharmacokinetics Vancomycin I
- -
Patient Age: 83
Patient Sex: Female
Vancomycin Day #: 1
Indication: Pulmonary/Respiratory
Requesting Provider: ESTHER
Height / Weight:
Height 4 ft 11 in
Actual Weight 46.811 kg
Pertinent Past Medical History: [R] HILAR LUNG MASS; COPD; DM-1
- Vital Signs / Lab Results
Temp Pulse Resp BP Pulse Ox
98.7 F 81 16 163/54 94
07/23/24 12:53 07/23/24 12:53 07/23/24 12:53 07/23/24 12:53 07/23/24 12:53
Lab Results - Hematology
07/20/24 07/21/24 07/22/24
19:14 04:51 06:09
WBC 11.0 H 11.1 H 13.4 H
07/23/24
05:52
WBC 13.1 H
Lab Results - Chemistry
07/20/24 07/21/24 07/21/24
19:14 04:51 06:03
BUN 30 H Cancelled 27 H
Creatinine 0.8 Cancelled 0.9
Estimated Creat Clear Cancelled 32
Albumin 3.1 L
07/22/24 07/23/24
06:09 05:52
BUN 20 H 26 H
Creatinine 0.8 0.9
Estimated Creat Clear 36 32
Albumin
Microbiology Results
07/21/24 21:47 Legionella Urinary Antigen - Final
Urine Negative for Legionella pneumophila Serogroup 1 antigen.
A negative result does not rule out the possiblity of
Legionella infection due to other serogroups or species of
Legionella. Clinical correlation is recommended.
Streptococcus pneumoniae Antigen (M - Final
Negative for Streptococcus pneumoniae antigen.
A negative result does not exclude infection with
Streptococcus pneumoniae. Clinical correlation is
recommended.
07/21/24 06:03 MRSA Screen - Final
Nose Staph aureus MRSA
[2024-07-23] MEDS: VANCOCIN 200 IV (15:23)
[2024-07-23 16:15] VITALS: BP 147/66
--- NOTE | 2024-07-23 16:45 | CM ---
Patient seen at bedside with physicians. Patient for biopsy per physicians. Therapy recommendation is for SNF; patient considering, daughter aware. Patient will need home O2 assessment closer to discharge planning needs if not going to SNF. Patient
not medically appropriate for discharge at this time. CM will continue to follow for discharge planning needs.
Plan;SNF vs home with VN/home O2
--- NOTE | 2024-07-23 16:56 | PHA.VAN.FU ---
Vancomycin Assessment / Plan
- Assessment
Renal Function: Stable (0.9)
WBC's are: WNL (13.1)
In the past 24 hrs, patient has been: Afebrile
Concomitant Antimicrobials: Piperacillin/Tazobactam
- Dosing Plan
Continue: Vanco 500mg Q24H
- Monitoring Plan
No level(s) ordered at this time: Consider in the next few days
- Follow Up
Pharmacy will continue to follow.
Vancomycin Follow UP
- -
Patient Age: 83
Patient Sex: Female
Vancomycin Day #: 2
Indication: Pulmonary/Respiratory
Requesting Provider: ESTHER
Pertinent Antimicrobial Allergies:
No known drug allergies
Height / Weight:
Height 4 ft 11 in
Actual Weight 46.811 kg
Pertinent Past Medical History: [R] HILAR LUNG MASS; COPD; DM-1
- Vital Signs / Lab Results
Temp Pulse Resp BP Pulse Ox
98.1 F 95 18 147/66 100
07/23/24 16:15 07/23/24 16:15 07/23/24 16:15 07/23/24 16:15 07/23/24 16:15
Lab Results - Hematology
07/20/24 07/21/24 07/22/24
19:14 04:51 06:09
WBC 11.0 H 11.1 H 13.4 H
07/23/24
05:52
WBC 13.1 H
Lab Results - Chemistry
07/20/24 07/21/24 07/21/24
19:14 04:51 06:03
BUN 30 H Cancelled 27 H
Creatinine 0.8 Cancelled 0.9
Estimated Creat Clear Cancelled 32
Albumin 3.1 L
07/22/24 07/23/24
06:09 05:52
BUN 20 H 26 H
Creatinine 0.8 0.9
Estimated Creat Clear 36 32
Albumin
Microbiology Results
07/21/24 21:47 Legionella Urinary Antigen - Final
Urine Negative for Legionella pneumophila Serogroup 1 antigen.
A negative result does not rule out the possiblity of
Legionella infection due to other serogroups or species of
Legionella. Clinical correlation is recommended.
Streptococcus pneumoniae Antigen (M - Final
Negative for Streptococcus pneumoniae antigen.
A negative result does not exclude infection with
Streptococcus pneumoniae. Clinical correlation is
recommended.
07/21/24 06:03 MRSA Screen - Final
Nose Staph aureus MRSA
[2024-07-23] MEDS: ZOSYN 50 IV ×2 (17:08→22:35)
[2024-07-23 17:19] LABS: Glucose - Point of Care 218 mg/dl (70-99)
[2024-07-23] MEDS: LIPITOR 80 MG PO (18:30)
[2024-07-23] MEDS: DECADRON 2 MG IV ×2 (18:32→23:35)
[2024-07-23] MEDS: PT'S OWN INSULIN PUMP - HumaLOG 5.32 UNIT SC (18:32)
[2024-07-23] MEDS: NEURONTIN 100 MG PO (21:29)
[2024-07-23 21:45] LABS: Glucose - Point of Care 107 mg/dl (70-99)
[2024-07-23] MEDS: PT'S OWN INSULIN PUMP - HumaLOG SC (22:22)
[2024-07-23 23:06] VITALS: BP 179/63
[2024-07-24] MEDS: ZOSYN 50 IV ×4 (04:30→22:04)
[2024-07-24] MEDS: VANCOCIN HCL 500 MG 100 IV (05:07)
[2024-07-24 06:00] VITALS: BMI 21.1
[2024-07-24] MEDS: DECADRON 2 MG IV ×3 (06:15→22:05)
[2024-07-24] MEDS: SYNTHROID 100 MCG PO (06:16)
[2024-07-24 06:46] LABS: Hematocrit 33.5 % (37.0-47.0); Hemoglobin 11.4 g/dL (12.0-16.0); Mean Corpuscular Hgb 30.5 pg (27.0-31.0); Mean Corpuscular Volume 89.6 fL (81.0-99.0); Mean Platelet Volume 8.9 fL (7.4-10.4); Platelet Count 319 10^3/uL (130-400); Red Blood Cell Count 3.74 10^6/uL (4.20-5.40); Red Cell Dist. Width 14.2 % (11.5-14.5); White Blood Cell Count 11.6 10^3/uL (4.8-10.8)
[2024-07-24 07:04] LABS: Blood Urea Nitrogen 31 mg/dl (7-17); Calcium 8.7 mg/dl (8.4-10.2); Carbon Dioxide 26 mmol/L (22-30); Chloride 105 mmol/L (98-107); Estimated Creatinine Clearance 29 ml/min; Glucose 205 mg/dl (70-99); Potassium 4.8 mmol/L (3.5-5.1); Sodium 136 mmol/L (135-145); eGFR 55.55
[2024-07-24 07:05] VITALS: BP 167/67
[2024-07-24 07:09] LABS: Glucose - Point of Care 170 mg/dl (70-99)
[2024-07-24] MEDS: DUONEB 3 ML INH ×4 (07:54→18:08)
[2024-07-24] MEDS: PROTONIX 40 MG PO (08:41)
[2024-07-24] MEDS: DALIRESP 500 MCG PO (08:41)
[2024-07-24] MEDS: ASPIR LOW (ENTERIC COATED) 81 MG PO (08:41)
[2024-07-24] MEDS: TOPROL XL 12.5 MG PO (08:41)
[2024-07-24] MEDS: NORVASC 2.5 MG PO ×2 (08:41→22:15)
[2024-07-24] MEDS: PT'S OWN INSULIN PUMP - HumaLOG 6.5 UNIT SC (08:42)
--- NOTE | 2024-07-24 11:15 | PHA.VAN.FU ---
Vancomycin Assessment / Plan
- Assessment
Renal Function: Stable
WBC's are: Trending Down
In the past 24 hrs, patient has been: Afebrile
Concomitant Antimicrobials: Piperacillin-tazobactam
- Dosing Plan
Continue: Vanc 500mg IV Q24H
- Follow Up
Pharmacy will continue to follow.
Vancomycin Follow UP
- -
Patient Age: 83
Patient Sex: Female
Vancomycin Day #: 3
Indication: Pulmonary/Respiratory
Requesting Provider: ESTHER
Pertinent Antimicrobial Allergies:
No known drug allergies
Height / Weight:
Height 4 ft 11 in
Actual Weight 47.3 kg
Pertinent Past Medical History: [R] HILAR LUNG MASS; COPD; DM-1
- Vital Signs / Lab Results
Temp Pulse Resp BP Pulse Ox
98.0 F 89 20 167/67 96
07/24/24 07:05 07/24/24 08:41 07/24/24 08:01 07/24/24 08:41 07/24/24 08:01
Lab Results - Hematology
07/22/24 07/23/24 07/24/24
06:09 05:52 06:02
WBC 13.4 H 13.1 H 11.6 H
Lab Results - Chemistry
07/22/24 07/23/24 07/24/24
06:09 05:52 06:02
BUN 20 H 26 H 31 H
Creatinine 0.8 0.9 1.0
Estimated Creat Clear 36 32 29
Microbiology Results
07/21/24 21:47 Legionella Urinary Antigen - Final
Urine Negative for Legionella pneumophila Serogroup 1 antigen.
A negative result does not rule out the possiblity of
Legionella infection due to other serogroups or species of
Legionella. Clinical correlation is recommended.
Streptococcus pneumoniae Antigen (M - Final
Negative for Streptococcus pneumoniae antigen.
A negative result does not exclude infection with
Streptococcus pneumoniae. Clinical correlation is
recommended.
07/21/24 06:03 MRSA Screen - Final
Nose Staph aureus MRSA
[2024-07-24] MEDS: IMODIUM 2 MG PO (11:34)
[2024-07-24] MEDS: PT'S OWN INSULIN PUMP - HumaLOG 7.54 UNIT SC (11:42)
[2024-07-24 12:41] LABS: Glucose - Point of Care 233 mg/dl (70-99)
--- NOTE | 2024-07-24 14:21 | W.PN.PUL3 ---
Today's Communication / Plan
-
- Continue current treatment
- Await lymph node biopsy results
- If lymph node biopsy negative, will need to consider biopsying liver lesion versus bronchoscopy with EBUS-TBNA
Assessment
-
Patient is an 83-year-old female with previous history of COPD, diabetes, CAD, PAD, hypertension presenting with progressive shortness of breath over the past week with associated nonproductive coughing. She has noticed orthopnea and lower
extremity swelling CT obtained demonstrating large right-sided diffuse nodular consolidation. She is placed on IV antibiotics for presumed pneumonia but there is suspicion of possible underlying malignancy. We are consulted for evaluation.
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
COPD-follows [facility] Dr Martínez
Last PFT 12/02/23-FEV1 1.09-81%
Former tobacco use - [id number] 2016
PAD s/p Status post bilateral femoral endarterectomy with angioplasty, 07/26/21
Non-insulin dependent type 2 diabetes mellitus
History of peripheral neuropathy
History of aspiration pneumonia - 01/2023
CAD s/p RCA stent 01/2023
TIA
Hypothyroidism
HLD
HFpEF
HTN
BL Carotid disease
Assessment and plan:
#1. Acute hypoxic respiratory failure. Related to pneumonia with suspected lung mass in the setting of underlying COPD.
-Continue antibiotics for pneumonia, continue O2 support to keep saturation above 90%
-Continue to optimize COPD
#2. Right-sided pneumonia with concern for underlying mass with axillary lymphadenopathy and liver lesion concerning for metastasis.
-Patient also reports lack of appetite and weight loss over the last 6 months
-Continue IV vancomycin and Zosyn as ordered. MRSA screen positive. Legionella and strep pneumo antigen negative. Influenza AB screen negative. COVID-19 screen negative.
-Postobstructive pneumonia certainly can differential diagnosis
-S/p axillary lymph node biopsy on 11/22. Await results
-If biopsy is unrevealing or additional tissue needed, may consider liver biopsy versus eventually bronchoscopy with biopsy and EBUS TBNA.
-In view of active pneumonia, favor continued treating for antibiotics and then repeating imaging in coming weeks before deciding on lung biopsy
#3. h/o COPD, with acute exacerbation.
- Continue continue Decadron IV as ordered, continue DuoNeb 4 times daily, as needed albuterol
- Continue Roflumilast. However with reported weight loss hide might need to reconsider if she should continue this medication.
- Await lymph node biopsies
- Patient follows up with Dr. Martínez as outpatient, has known emphysema on imaging. Mild obstruction noted on last pulmonary function testing.
- Smoking history noted--quit 2016
Will need outpatient pulmonary evaluation in our office for PFTs and 6MWT
Reviewed with patient
Diagnostic Data
Chest X-Ray: 07/20/24- Severe right mid to lower lung zone airspace disease/pneumonia. Suspect underlying right hilar mass/neoplasm. Recommend further evaluation with dedicated CT.
02/19/23- Bilateral parenchymal opacities, likely representing bilateral pneumonia. Interval increase in right upper lobe parenchymal opacity, highly suggestive of increasing pneumonia.
07/23/21- No radiographic evidence of acute cardiopulmonary abnormality.
CT Scan: CHEST 07/21/24- 1. There is a right hilar consolidation extending into the right upper, right lower and posterior right middle lobes with surrounding groundglass opacities. Findings likely represent pneumonia with possible underlying lesion.
Recommend short interval follow-up
2. There are numerous scattered pulmonary nodules which may be infectious in nature although are concerning for metastasis.
3. Moderate apical predominant paraseptal and centrilobular emphysematous changes.
4. 2.2 cm centrally hypodense lesion within the anterior right hepatic lobe appears new from prior CTA in 2022 and concerning for metastasis. Consider dedicated MRI abdomen for further evaluation.
CT AP 06/28/22- lung bases clear
Echo: 07/21/24- Left ventricle is small in size. Normal left ventricular systolic function. Left ventricular ejection fraction is 55% by volumetric assessment. Normal regional wall motion. Normal left ventricular wall thickness. Normal diastolic
function. Thickened mitral valve leaflets. Mitral valve opens normally. Mitral annular calcification. Mild mitral regurgitation. Calcified aortic valve. Aortic sclerosis without stenosis. Trileaflet aortic valve. Trace aortic regurgitation is seen.
Small anterior pericardial effusion. Since prior echocardiogram August 2023 which was reviewed, there is a small anterior pericardial effusion which is of no hemodynamic significance.
09/25/23- 1. Small left ventricle with preserved systolic function, ejection fraction 55-60%
2. Thickened mitral leaflets, mitral annular calcification, mild mitral regurgitation and normal left atrium
3. Marked aortic sclerosis without stenosis. No aortic regurgitation
4. Normal right heart with pulmonary artery systolic pressure of 33 mmHg.
In January 2023 the basal inferior and inferoseptal segments were hypokinetic and the ejection fraction was 45-50%. Mitral regurgitation was moderate, and the pulmonary artery systolic pressure was 45 mmHg.
PFT's:
PFT-02/14/2012- FVC 1.79 or 70%, FEV1 1.24 or 65%, ratio 69%. TLC 3.60 or 81%, DLCO 15.44, 81%
Dom 11/10/2019- FVC 1.81 or 83%, FEV1 1.25 or 79%, Ratio 71%.
DOM: 05/20/2019-FVC: 1.75 L / 80 %; FEV1: 1.14 L / 70 % ; Ratio: 65 %; BD response: NoStable; moderate obstruction
Pcyutozpws-10-34-19:FVC: 1.87L/ 85%; FEV1: 1.27L/ 79%; ratio: 68% no BD response
PFT 06/14/20-FEV1 1.12 L-77%, FVC 1.71 L-86%, TLC 89%, RV 88%, DLCO 31%. Mild obstruction with normal lung findings and severe reduction in diffusing capacity.
Spirometry 9105/15/20-FEV1 920 mL-64%, FVC 1.49 L-75%, 80% BD response. Moderate obstruction.
PFT 09/12/21-FEV1 1.25 L-52%, FVC 2 L-63%, unable to perform lung volumes, DLCO 30%. Moderate obstruction and severe reduction in diffusing capacity.
Spirometry 03/19/22-FEV1 1.01 L-71%, FVC 1.41 L-73%, no significant improvement postbronchodilator. Mild obstruction.
PFT 09/03/22-FEV1 1.22-84%, FVC 1.94-97%, no significant BD response, unable to perform lung volumes, DLCO 31%, DLCO/VA 38%. Mild obstruction and severe reduction in diffusing capacity.
Spirometry 05/16/23-FEV1 740 mL-54%, FVC 1.24-65%, 8% improvement postbronchodilator. Moderate obstruction.
PFT 12/02/23-FEV1 1.09-81%, FVC 1.88-102%, 9% improvement postbronchodilator. Lung volumes unable to be performed. DLCO 47%, DLCO/VA 55%. Mild obstruction. Moderate reduction in diffusing capacity.
6 minute walk test-11/10/2019- baseline of 97% on RA, desaturaiton to 96%. HR 62-89bpm. ambulated 600 feet.
6 minute walk test-05/20/2019--POx at rest 96%; Johny: 95%,HR: 62-93 bpm, distance 300ft
6 minute walk test 06/14/20-Ambulated 600 feet with desaturation johny of 90% maximal heart rate of 91. No supplemental oxygen required.
6 minute walk test 03/14/21-Ambulated 450 feet with a desaturation johny of 99% and maximum heart rate of 89. No oxygen requirement.
6 minute walk test 09/12/21-Ambulated 525 feet with a desaturation johny of 97% maximum heart rate of 90. Maximum dyspnea scale score 2.0. No Oxygen required.
6 minute walk test 12/02/23-ambulated 752, desaturation johny 94% maximum heart rate of 73. Maximum dyspnea scale score 1. No supplemental oxygen needed.
Reports and relevant images were personally reviewed.
Total time spent on this consultation __45__ minutes which includes review of history, physical exam, medications, laboratory data, personal review of imaging, extensive review of outpatient records, discussion with care team and respiratory therapy.
Subjective Data
-
Date of Service:
Date of Service: July 24, 2024
Chief Complaint: Pulmonary Follow Up
Subjective:
Patient comfortably sitting in bed, in no acute distress.
Review of Systems
Genitourinary: Other (All 14 systems reviewed and negative except as stated above in the history of present illness. Reported weight loss, decreased appetite.)
Objective Data
Data Reviewed
Vital Signs / I&O / Oxygen:
Vital Signs
Temp Pulse Resp BP Pulse Ox
98.0 F 87 20 167/67 96
07/24/24 07:05 07/24/24 11:28 07/24/24 11:28 07/24/24 08:41 07/24/24 11:28
Intake and Output
07/23/24 07/24/24 07/25/24
06:59 06:59 06:59
Intake Total 1760 / 1760 1200 / 1200
Balance 1760 / 1760 1200 / 1200
SaO2 96
Nasal Cannula flow liters per 4
minute
Physical Exam
General: Comfortable, Poor Appetite and Other (Reported reported weight loss)
HEENT: Normocephalic, Anicteric and Moist Mucous Membranes
Cardiovascular: S1-S2, Regular Rhythm and Peripheral Edema (trace, skin wounds)
Respiratory: Crackles and Non-Labored Respirations
GI: Soft, Non Distended and Non Tender
Neurology: Awake, Alert, Oriented and No Motor Deficits
Skin: Warm
Labs/Micro/Reports
Lab Data
07/24/24 06:02
07/24/24 06:02
Microbiology
07/21/24 21:47 Urine Legionella Urinary Antigen - Final
Negative for Legionella pneumophila Serogroup 1 antigen.
A negative result does not rule out the possiblity of
Legionella infection due to other serogroups or species of
Legionella. Clinical correlation is recommended.
07/21/24 21:47 Urine Streptococcus pneumoniae Antigen (M - Final
Negative for Streptococcus pneumoniae antigen.
A negative result does not exclude infection with
Streptococcus pneumoniae. Clinical correlation is
recommended.
07/21/24 06:03 Nose MRSA Screen - Final
Staph aureus MRSA
--- NOTE | 2024-07-24 15:11 | W.PN.HOSP.TC ---
Addendum entered and electronically signed by Luz Shafer MD 07/24/24 16:17:
I saw and evaluated the patient independently. I reviewed the resident�s note and agree with findings and plan as documented by Dr. Ríos.
GENERAL: well developed, well nourished, female c/o SOB and trouble breathing
HEENT: NC/AT --O2 NC
HEART: regular rate and rhythm, +S1, +S2, COBY
LUNGS : wheezing RUL, rhonchi mid lung field
ABDOM: soft, nontender, nondistended, + bowel sounds
EXT: no cyanosis, clubbing, or edema
NEUROLOGIC: grossly intact
LAD: right axillary LAD, firm nontender
Acute hypoxemic resp failure (4-5L here, none at home) due to likely COPD exacerbation from right hilar lung mass and post obstructive PNA (RLL pna)--aspiration ruled out--CT chest reviewed--apprec pulm-- cont vanco/zosyn-- strep pneumo and
Legionella antigens neg--Speech eval apprec--on regular diet--s/p biopsy of axillary LAD-- decadron to help with SOB c/o
COPD--Likely COPD exacerbation (dyspnea and wheezing present)--Not on home O2--Continue Daliresp (Roflumilast)--DuoNebs ATC and as needed--apprec pulm input
orthopnea/minimal LE edema--May be due to pneumonia or hilar mass--Echo reveals echo reveals LVEF 55% with normal regional wall motion and left ventricle wall thickness--doubt any CHF reason or cause
ASCVD (Hx of CAD, PAD)--s/p coronary stents, PAD stents and b/l femoral endarterectomies--Continue aspirin uninterrupted--cont Plavix for potential lung biopsy
chronic diarrhea--restarted pt Imodium
Essential hypertension--Continue amlodipine and Nebivolol
Hypothyroidism--Continue levothyroxine
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
code status --Full code
DVT proph --SCDs
Original Note:
Today's Communication/Plan
-
S/p lymph node biopsy--pathology report pending
Continue IV antibiotics
Continue IV Decadron
Imodium for chronic diarrhea
Assessment / Plan
Assessment / Plan
Impression
Right lower lobe pneumonia
Right hilar mass
Acute hypoxic respiratory failure
History of COPD
Dyspnea on exertion/orthopnea/LE edema
History of PAD and CAD
Essential hypertension
Hypothyroidism
Type 1 diabetes mellitus
Chronic diarrhea
Plan
Right lower lobe pneumonia likely due to aspiration/right hilar mass
Right hilar mass seen on chest x-ray
Patient is afebrile with no leukocytosis
Chest CT with IV contrast for workup of hilar mass--- lung malignancy?
Appreciate pulmonology input
Changed to Zosyn for anaerobic coverage and postobstructive pneumonia.
MRSA positive--IV vancomycin
IV Decadron for SOB
Negative strep pneumo and Legionella antigen
VSE-recommend regular thin liquids
Consult IR for right axillary lymph node biopsy
S/p right axillary lymph node biopsy--- pathology report pending
Acute hypoxic respiratory failure
Suspect due to aspiration pneumonia/COPD exacerbation/hilar mass
Currently on 4 to 5 L of oxygen
Wean as able
History of COPD
Likely COPD exacerbation(dyspnea and wheezing present)
Not on home O2
Continue Daliresp(Roflumilast)
DuoNebs ATC and as needed
Pulmonology eval
Dyspnea on exertion/orthopnea/LE edema
May be due to pneumonia or hilar mass
Echo reveals echo reveals LVEF 55% with normal regional wall motion and left ventricle wall thickness.
ASCVD (Hx of CAD, PAD)
s/p coronary stents, PAD stents and b/l femoral endarterectomies.
Continue aspirin uninterrupted
Hold Plavix for potential lung biopsy
Essential hypertension
Continue amlodipine and Nebivolol
Hypothyroidism
Continue levothyroxine
Type 1 diabetes mellitus
Continue home insulin pump
Monitor blood glucose
Chronic diarrhea
Patient was taking Imodium at home
Start Imodium 2 mg p.o. as needed
Monitor
Diabetic diet
Full code
SCDs
Anticipated Discharge: > 48 hours
Subjective/Interval History
-
Date of Service: July 24, 2024
S/p right axillary lymph node biopsy
Objective Data
-
Labs:
Laboratory Results
07/24/24
06:02
WBC 11.6 H
Hgb 11.4 L
Hct 33.5 L
Plt Count 319
Sodium 136
Potassium 4.8
Chloride 105
Carbon Dioxide 26
BUN 31 H
Creatinine 1.0
Glucose 205 H
Calcium 8.7
Vital Signs:
Vital Signs
Temp Pulse Resp BP Pulse Ox
98.0 F 87 20 167/67 96
07/24/24 07:05 07/24/24 11:28 07/24/24 11:28 07/24/24 08:41 07/24/24 11:28
I&O
07/23/24 07/24/24 07/25/24
06:59 06:59 06:59
Intake Total 1760 / 1760 1200 / 1200
Balance 1760 / 1760 1200 / 1200
Review of Systems
-
All other systems: Reviewed and negative
Physical Exam
-
General: No Apparent Distress and Comfortable
HEENT: Normocephalic and Atraumatic
Respiratory: Decreased Breath Sounds
Cardiac: Regular Rhythm and S1/S2
GI: Soft, Nontender and Nondistended
Neuro: AO x 3
Psych: Calm
Data Reviewed
-
Labs: Labs Reviewed by me and Discussed with Physician
[2024-07-24 16:35] VITALS: BP 135/52
[2024-07-24 16:53] LABS: Glucose - Point of Care 252 mg/dl (70-99)
[2024-07-24] MEDS: LIPITOR 80 MG PO (18:06)
[2024-07-24] MEDS: FEOSOL 325 MG PO (18:06)
[2024-07-24] MEDS: PT'S OWN INSULIN PUMP - HumaLOG 5.6 UNIT SC (18:09)
[2024-07-24 21:33] LABS: Glucose - Point of Care 353 mg/dl (70-99)
[2024-07-24] MEDS: FLUSH (NSS) 3 FLUSH IV (22:04)
[2024-07-24] MEDS: NEURONTIN 100 MG PO (22:06)
[2024-07-24] MEDS: CARDURA 1 MG PO (22:06)
[2024-07-24] MEDS: PT'S OWN INSULIN PUMP - HumaLOG 3.12 UNIT SC (22:20)
[2024-07-24 23:05] VITALS: BP 158/60
[2024-07-25] MEDS: ZOSYN 50 IV ×4 (03:37→22:42)
[2024-07-25] MEDS: FLUSH (NSS) 2 FLUSH IV ×3 (03:39→22:45)
[2024-07-25] MEDS: DECADRON 2 MG IV ×2 (05:15→20:22)
[2024-07-25] MEDS: VANCOCIN HCL 500 MG 100 IV (05:16)
[2024-07-25] MEDS: SYNTHROID 150 MCG PO (05:17)
[2024-07-25 06:00] VITALS: BMI 21.3
[2024-07-25 06:33] LABS: Hematocrit 33.4 % (37.0-47.0); Hemoglobin 11.4 g/dL (12.0-16.0); Mean Corp Hgb Conc. 34.1 g/dL (33.0-37.0); Mean Corpuscular Hgb 30.2 pg (27.0-31.0); Mean Corpuscular Volume 88.4 fL (81.0-99.0); Mean Platelet Volume 9.1 fL (7.4-10.4); Platelet Count 362 10^3/uL (130-400); Red Blood Cell Count 3.78 10^6/uL (4.20-5.40); Red Cell Dist. Width 13.8 % (11.5-14.5); White Blood Cell Count 13.1 10^3/uL (4.8-10.8)
[2024-07-25 07:00] LABS: Blood Urea Nitrogen 34 mg/dl (7-17); Calcium 8.8 mg/dl (8.4-10.2); Carbon Dioxide 24 mmol/L (22-30); Chloride 104 mmol/L (98-107); Estimated Creatinine Clearance 29 ml/min; Glucose 214 mg/dl (70-99); Potassium 4.8 mmol/L (3.5-5.1); Sodium 136 mmol/L (135-145); eGFR 55.55
[2024-07-25 07:05] VITALS: BP 160/69
[2024-07-25 07:39] LABS: Glucose - Point of Care 193 mg/dl (70-99)
[2024-07-25] MEDS: DUONEB 3 ML INH ×4 (07:41→19:58)
--- NOTE | 2024-07-25 08:39 | PHA.VAN.FU ---
Vancomycin Assessment / Plan
- Assessment
Renal Function: Stable
WBC's are: Trending Up
In the past 24 hrs, patient has been: Afebrile
Concomitant Antimicrobials: Piperacillin-tazobactam
- Dosing Plan
Continue: Vanc 500mg IV Q24H
- Monitoring Plan
Peak Level: 07/26 at 0830
Trough Level: 07/27 at 0530
- Follow Up
Pharmacy will continue to follow.
Vancomycin Follow UP
- -
Patient Age: 83
Patient Sex: Female
Vancomycin Day #: 4
Indication: Pulmonary/Respiratory
Requesting Provider: ESTHER
Pertinent Antimicrobial Allergies:
No known drug allergies
Height / Weight:
Height 4 ft 11 in
Actual Weight 47.8 kg
Pertinent Past Medical History: [R] HILAR LUNG MASS; COPD; DM-1
- Vital Signs / Lab Results
Temp Pulse Resp BP Pulse Ox
98.1 F 66 16 160/69 96
07/25/24 07:05 07/25/24 07:45 07/25/24 07:45 07/25/24 07:05 07/25/24 07:45
Lab Results - Hematology
07/23/24 07/24/24 07/25/24
05:52 06:02 05:51
WBC 13.1 H 11.6 H 13.1 H
Lab Results - Chemistry
07/23/24 07/24/24 07/25/24
05:52 06:02 05:51
BUN 26 H 31 H 34 H
Creatinine 0.9 1.0 1.0
Estimated Creat Clear
--- NOTE | 2024-07-25 09:22 | W.PN.HOSP.TC ---
Today's Communication/Plan
-
Continue abx
IV decadron Q8
CXR in AM
Monitor BG
Assessment / Plan
Assessment / Plan
Impression
Right lower lobe pneumonia
Right hilar mass
Acute hypoxic respiratory failure
History of COPD
Dyspnea on exertion/orthopnea/LE edema
History of PAD and CAD
Essential hypertension
Hypothyroidism
Type 1 diabetes mellitus
Chronic diarrhea
Plan
Right lower lobe pneumonia likely due to aspiration/right hilar mass
Right hilar mass seen on chest x-ray
Patient is afebrile with no leukocytosis
Chest CT with IV contrast for workup of hilar mass--- lung malignancy?
Appreciate pulmonology input
Changed to Zosyn for anaerobic coverage and postobstructive pneumonia.
MRSA positive--IV vancomycin
IV Decadron Q8 for SOB
Negative strep pneumo and Legionella antigen
VSE-recommend regular thin liquids
Consult IR for right axillary lymph node biopsy
S/p right axillary lymph node biopsy--- pathology report pending
CXR in Am
Acute hypoxic respiratory failure
Suspect due to aspiration pneumonia/COPD exacerbation/hilar mass
Currently on 4 to 5 L of oxygen
Wean as able
History of COPD
Likely COPD exacerbation(dyspnea and wheezing present)
Not on home O2
Continue Daliresp(Roflumilast)
DuoNebs ATC and as needed
Pulmonology eval
Dyspnea on exertion/orthopnea/LE edema
May be due to pneumonia or hilar mass
Echo reveals echo reveals LVEF 55% with normal regional wall motion and left ventricle wall thickness.
ASCVD (Hx of CAD, PAD)
s/p coronary stents, PAD stents and b/l femoral endarterectomies.
Continue aspirin uninterrupted
Hold Plavix for potential lung biopsy
Essential hypertension
Continue amlodipine and Nebivolol
Hypothyroidism
Continue levothyroxine
Type 1 diabetes mellitus
Continue home insulin pump
Monitor blood glucose
Chronic diarrhea
Patient was taking Imodium at home
Start Imodium 2 mg p.o. as needed
Monitor
Diabetic diet
Full code
SCDs
Anticipated Discharge: > 48 hours
Subjective/Interval History
-
Date of Service: July 25, 2024
no overnight events
Objective Data
-
Labs:
Laboratory Results
07/25/24
05:51
WBC 13.1 H
Hgb 11.4 L
Hct 33.4 L
Plt Count 362
Sodium 136
Potassium 4.8
Chloride 104
Carbon Dioxide 24
BUN 34 H
Creatinine 1.0
Glucose 214 H
Calcium 8.8
Vital Signs:
Vital Signs
Temp Pulse Resp BP Pulse Ox
98.1 F 66 16 160/69 96
07/25/24 07:05 07/25/24 07:45 07/25/24 07:45 07/25/24 07:05 07/25/24 07:45
I&O
07/24/24 07/25/24 07/26/24
06:59 06:59 06:59
Intake Total 1200 / 1200 560 / 560
Balance 1200 / 1200 560 / 560
Review of Systems
-
All other systems: Reviewed and negative
Physical Exam
-
General: Comfortable
HEENT: Normocephalic and Atraumatic
Respiratory: Decreased Breath Sounds; Negative Wheezes
Cardiac: Regular Rhythm and S1/S2
GI: Nondistended
Musculoskeletal: No Edema
Neuro: AO x 3
Psych: Calm
Data Reviewed
-
Labs: Labs Reviewed by me and Discussed with Physician
--- NOTE | 2024-07-25 09:39 | W.PN.UPDATE ---
Update Note
Progress Note Update
I saw and evaluated the patient. I reviewed the resident�s note and agree with findings and plan as documented in the resident�s note.
Patient denies shortness of breath.
Gen: NAD, awake and alert
Eyes: EOMI, PERRLA, no scleral icterus.
Neck: supple.
CV: RRR, +S1/S2, no m/r/g.
Resp: Decreased breath sounds in the right base and right midlung field
Skin: No rashes.
Neuro: CN 2-12 intact, non-focal.
Psych: Normal mood and affect.
07/21/24 21:47 Urine Legionella Urinary Antigen - Final
Negative for Legionella pneumophila Serogroup 1 antigen.
A negative result does not rule out the possiblity of
Legionella infection due to other serogroups or species of
Legionella. Clinical correlation is recommended.
07/21/24 21:47 Urine Streptococcus pneumoniae Antigen (M - Final
Negative for Streptococcus pneumoniae antigen.
A negative result does not exclude infection with
Streptococcus pneumoniae. Clinical correlation is
recommended.
07/21/24 06:03 Nose MRSA Screen - Final
Staph aureus MRSA
07/20/24 19:14 Nasal Swab Influenza Types A & B (BRENDA) - Final
Negative for Influenza A & B, NAAT
Negative results must be combined with clinical observations
and patient history.
Nucleic Acid Amplification test (NAAT)performed on the
[employer] platform.
CT chest w/IV:
1. There is a right hilar consolidation extending into the right upper, right lower and posterior right middle lobes with surrounding groundglass opacities. Findings likely represent pneumonia with possible underlying lesion. Recommend short
interval follow-up
2. There are numerous scattered pulmonary nodules which may be infectious in nature although are concerning for metastasis.
3. Moderate apical predominant paraseptal and centrilobular emphysematous changes.
4. 2.2 cm centrally hypodense lesion within the anterior right hepatic lobe appears new from prior CTA in 2022 and concerning for metastasis. Consider dedicated MRI abdomen for further evaluation.
Echo: EF 55%, no RWMA, normal diastolic fxn, mild MR, trace AR, small anterior pericardial effusion
Acute hypoxemic respiratory failure:
-not on home O2, currently on 3L NC O2 (was on as much as 5L here)
-due to likely COPD exacerbation from right hilar lung mass and post obstructive PNA (RLL PNA)
-strep pneumo and Legionella Ags NEG
-Speech eval completed, on regular diet
-s/p biopsy of axillary LAD
-cont Decadron
-cont Vanco/Zosyn
-pulm following
CAD, PAD:
-s/p coronary stents, PAD stents and B/L femoral endarterectomies
-cont ASA
-home plavix on hold for potential lung Bx
Other problems:
Chronic diarrhea: cont imodium
Essential HTN: cont amlodipine/Nebivolol
Hypothyroidism: cont levothyroxine
DM1: cont home insulin pump
FULL/SCDs
[2024-07-25] MEDS: BYSTOLIC 2.5 MG PO (09:48)
[2024-07-25] MEDS: DALIRESP 500 MCG PO (09:49)
[2024-07-25] MEDS: ASPIR LOW (ENTERIC COATED) 81 MG PO (09:49)
[2024-07-25] MEDS: PROTONIX 40 MG PO (09:49)
[2024-07-25] MEDS: IMODIUM 2 MG PO ×2 (09:49→17:04)
[2024-07-25] MEDS: NORVASC 2.5 MG PO ×2 (09:49→20:25)
[2024-07-25] MEDS: PT'S OWN INSULIN PUMP - HumaLOG 6 UNIT SC (09:51)
[2024-07-25 12:18] LABS: Glucose - Point of Care 225 mg/dl (70-99)
[2024-07-25] MEDS: PT'S OWN INSULIN PUMP - HumaLOG 3.6 UNIT SC (13:48)
--- NOTE | 2024-07-25 14:46 | W.PN.PUL3 ---
Today's Communication / Plan
-
- Await lymph node biopsy
- Lasix 40 mg IV x 1
- Follow-up chest x-ray and BNP in a.m.
Assessment
-
Patient is an 83-year-old female with previous history of COPD, diabetes, CAD, PAD, hypertension presenting with progressive shortness of breath over the past week with associated nonproductive coughing. She has noticed orthopnea and lower
extremity swelling CT obtained demonstrating large right-sided diffuse nodular consolidation. She is placed on IV antibiotics for presumed pneumonia but there is suspicion of possible underlying malignancy. We are consulted for evaluation.
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
COPD-follows [facility] Dr Martínez
Last PFT 12/02/23-FEV1 1.09-81%
Former tobacco use - [id number]-quit 2016
PAD s/p Status post bilateral femoral endarterectomy with angioplasty, 07/26/21
Non-insulin dependent type 2 diabetes mellitus
History of peripheral neuropathy
History of aspiration pneumonia - 01/2023
CAD s/p RCA stent 01/2023
TIA
Hypothyroidism
HLD
HFpEF
HTN
BL Carotid disease
Assessment and plan:
#1. Acute hypoxic respiratory failure. Related to pneumonia with suspected lung mass in the setting of underlying COPD.
-Continue antibiotics for pneumonia, continue O2 support to keep saturation above 90%
-Continue to optimize COPD
-2+ pedal edema on exam, Lasix 40 mg IV x 1 dose. f/u CXR and BNP in AM.
#2. Right-sided pneumonia with concern for underlying mass with axillary lymphadenopathy and liver lesion concerning for metastasis.
-Patient also reports lack of appetite and weight loss over the last 6 months
-Continue IV vancomycin and Zosyn as ordered. MRSA screen positive. Legionella and strep pneumo antigen negative. Influenza AB screen negative. COVID-19 screen negative.
-Postobstructive pneumonia certainly in differential diagnosis
-S/p axillary lymph node biopsy on 11/22. Await results
-If biopsy is unrevealing or additional tissue needed, may consider liver biopsy versus eventually bronchoscopy with biopsy and EBUS TBNA.
-In view of active pneumonia, favor continued treating for antibiotics and then repeating imaging in coming weeks before deciding on lung biopsy
#3. h/o COPD, with acute exacerbation.
- Continue continue Decadron IV as ordered, continue DuoNeb 4 times daily, as needed albuterol
- Continue Roflumilast. However with reported weight loss, might need to reconsider if she should continue this medication.
- Await lymph node biopsies
- Patient follows up with Dr. Martínez as outpatient, has known emphysema on imaging. Mild obstruction noted on last pulmonary function testing.
- Smoking history noted--quit 2016
Will need outpatient pulmonary evaluation in our office for PFTs and 6MWT
Reviewed with patient
Diagnostic Data
Chest X-Ray: 07/20/24- Severe right mid to lower lung zone airspace disease/pneumonia. Suspect underlying right hilar mass/neoplasm. Recommend further evaluation with dedicated CT.
02/19/23- Bilateral parenchymal opacities, likely representing bilateral pneumonia. Interval increase in right upper lobe parenchymal opacity, highly suggestive of increasing pneumonia.
07/23/21- No radiographic evidence of acute cardiopulmonary abnormality.
CT Scan: CHEST 07/21/24- 1. There is a right hilar consolidation extending into the right upper, right lower and posterior right middle lobes with surrounding groundglass opacities. Findings likely represent pneumonia with possible underlying lesion.
Recommend short interval follow-up
2. There are numerous scattered pulmonary nodules which may be infectious in nature although are concerning for metastasis.
3. Moderate apical predominant paraseptal and centrilobular emphysematous changes.
4. 2.2 cm centrally hypodense lesion within the anterior right hepatic lobe appears new from prior CTA in 2022 and concerning for metastasis. Consider dedicated MRI abdomen for further evaluation.
CT AP 06/28/22- lung bases clear
Echo: 07/21/24- Left ventricle is small in size. Normal left ventricular systolic function. Left ventricular ejection fraction is 55% by volumetric assessment. Normal regional wall motion. Normal left ventricular wall thickness. Normal diastolic
function. Thickened mitral valve leaflets. Mitral valve opens normally. Mitral annular calcification. Mild mitral regurgitation. Calcified aortic valve. Aortic sclerosis without stenosis. Trileaflet aortic valve. Trace aortic regurgitation is seen.
Small anterior pericardial effusion. Since prior echocardiogram August 2023 which was reviewed, there is a small anterior pericardial effusion which is of no hemodynamic significance.
09/25/23- 1. Small left ventricle with preserved systolic function, ejection fraction 55-60%
2. Thickened mitral leaflets, mitral annular calcification, mild mitral regurgitation and normal left atrium
3. Marked aortic sclerosis without stenosis. No aortic regurgitation
4. Normal right heart with pulmonary artery systolic pressure of 33 mmHg.
In January 2023 the basal inferior and inferoseptal segments were hypokinetic and the ejection fraction was 45-50%. Mitral regurgitation was moderate, and the pulmonary artery systolic pressure was 45 mmHg.
PFT's:
PFT-02/14/2012- FVC 1.79 or 70%, FEV1 1.24 or 65%, ratio 69%. TLC 3.60 or 81%, DLCO 15.44, 81%
[place] 11/10/2019- FVC 1.81 or 83%, FEV1 1.25 or 79%, Ratio 71%.
ZACHARY: 05/20/2019-FVC: 1.75 L / 80 %; FEV1: 1.14 L / 70 % ; Ratio: 65 %; BD response: NoStable; moderate obstruction
Jniijrlaxx-01-91-19:FVC: 1.87L/ 85%; FEV1: 1.27L/ 79%; ratio: 68% no BD response
PFT 06/14/20-FEV1 1.12 L-77%, FVC 1.71 L-86%, TLC 89%, RV 88%, DLCO 31%. Mild obstruction with normal lung findings and severe reduction in diffusing capacity.
Spirometry 9105/15/20-FEV1 920 mL-64%, FVC 1.49 L-75%, 80% BD response. Moderate obstruction.
PFT 09/12/21-FEV1 1.25 L-52%, FVC 2 L-63%, unable to perform lung volumes, DLCO 30%. Moderate obstruction and severe reduction in diffusing capacity.
Spirometry 03/19/22-FEV1 1.01 L-71%, FVC 1.41 L-73%, no significant improvement postbronchodilator. Mild obstruction.
PFT 09/03/22-FEV1 1.22-84%, FVC 1.94-97%, no significant BD response, unable to perform lung volumes, DLCO 31%, DLCO/VA 38%. Mild obstruction and severe reduction in diffusing capacity.
Spirometry 05/16/23-FEV1 740 mL-54%, FVC 1.24-65%, 8% improvement postbronchodilator. Moderate obstruction.
PFT 12/02/23-FEV1 1.09-81%, FVC 1.88-102%, 9% improvement postbronchodilator. Lung volumes unable to be performed. DLCO 47%, DLCO/VA 55%. Mild obstruction. Moderate reduction in diffusing capacity.
6 minute walk test-11/10/2019- baseline of 97% on RA, desaturaiton to 96%. HR 62-89bpm. ambulated 600 feet.
6 minute walk test-05/20/2019--POx at rest 96%; Johny: 95%,HR: 62-93 bpm, distance 300ft
6 minute walk test 06/14/20-Ambulated 600 feet with desaturation johny of 90% maximal heart rate of 91. No supplemental oxygen required.
6 minute walk test 03/14/21-Ambulated 450 feet with a desaturation johny of 99% and maximum heart rate of 89. No oxygen requirement.
6 minute walk test 09/12/21-Ambulated 525 feet with a desaturation johny of 97% maximum heart rate of 90. Maximum dyspnea scale score 2.0. No Oxygen required.
6 minute walk test 12/02/23-ambulated 752, desaturation johny 94% maximum heart rate of 73. Maximum dyspnea scale score 1. No supplemental oxygen needed.
Reports and relevant images were personally reviewed.
Total time spent on this consultation __45__ minutes which includes review of history, physical exam, medications, laboratory data, personal review of imaging, extensive review of outpatient records, discussion with care team and respiratory therapy.
Subjective Data
-
Date of Service:
Date of Service: July 25, 2024
Chief Complaint: Pulmonary Follow Up
Subjective:
Patient sitting up in chair, reports improving cough, minimal expectoration.
Review of Systems
Genitourinary: Other (All 14 systems reviewed and negative except as stated above in the history of present illness.)
Objective Data
Data Reviewed
Vital Signs / I&O / Oxygen:
Vital Signs
Temp Pulse Resp BP Pulse Ox
98.1 F 63 18 160/69 97
07/25/24 07:05 07/25/24 11:12 07/25/24 11:12 07/25/24 09:49 07/25/24 11:12
Intake and Output
07/24/24 07/25/24 07/26/24
06:59 06:59 06:59
Intake Total 1200 / 1200 560 / 560
Balance 1200 / 1200 560 / 560
SaO2 97
Nasal Cannula flow liters per 3
minute
Physical Exam
General: Comfortable, Poor Appetite and Other (Reported reported weight loss)
HEENT: Normocephalic, Anicteric and Moist Mucous Membranes
Cardiovascular: S1-S2, Regular Rhythm and Peripheral Edema (trace, skin wounds)
Respiratory: Crackles and Non-Labored Respirations
GI: Soft, Non Distended and Non Tender
Neurology: Awake, Alert, Oriented and No Motor Deficits
Skin: Warm
Labs/Micro/Reports
Lab Data
07/25/24 05:51
07/25/24 05:51
[2024-07-25] MEDS: LASIX 40 MG IV (14:51)
[2024-07-25 15:10] VITALS: BP 137/66
[2024-07-25 15:30] VITALS: BP 141/55; PULSE 79; O2SAT 95
[2024-07-25 16:57] LABS: Glucose - Point of Care 221 mg/dl (70-99)
[2024-07-25] MEDS: FEOSOL 325 MG PO (17:04)
[2024-07-25] MEDS: LIPITOR 80 MG PO (17:04)
[2024-07-25] MEDS: PT'S OWN INSULIN PUMP - HumaLOG 3.53 UNIT SC (18:13)
[2024-07-25 21:52] LABS: Glucose - Point of Care 226 mg/dl (70-99)
[2024-07-25] MEDS: NEURONTIN 100 MG PO (22:42)
[2024-07-25] MEDS: CARDURA 1 MG PO (22:43)
[2024-07-25] MEDS: PT'S OWN INSULIN PUMP - HumaLOG 3.12 UNIT SC (22:52)
[2024-07-25 23:29] VITALS: BP 141/52
[2024-07-26] MEDS: ZOSYN 50 IV ×4 (04:30→22:42)
[2024-07-26] MEDS: SYNTHROID 100 MCG PO (04:33)
[2024-07-26] MEDS: FLUSH (NSS) 2 FLUSH IV ×2 (04:34→06:01)
[2024-07-26 05:04] VITALS: BMI 19.8
[2024-07-26] MEDS: VENTOLIN NEBULES 2.5 MG INH (05:10)
[2024-07-26] MEDS: VANCOCIN HCL 500 MG 100 IV (06:00)
[2024-07-26 07:26] VITALS: BP 158/55
[2024-07-26] MEDS: DUONEB 3 ML INH ×4 (07:35→20:03)
[2024-07-26 07:41] LABS: Glucose - Point of Care 207 mg/dl (70-99)
--- NOTE | 2024-07-26 08:20 | W.PN.PUL3 ---
Addendum entered and electronically signed by Torres Mcmahon MD 07/27/24 08:27:
Correction: 'Before your loss' should read 'if weight loss'
Original Note:
Today's Communication / Plan
-
Await lymph node biopsy
prn lasix
Check LE duplex to rule out DVT
Abx with Vanc/Zosyn
Check sputum culture if patient can produce a decent sample, however utility is low given she has been on antibiotics now for several days
Before your loss continues then would stop Daliresp and transition to Ensifentrine (can be done as an outpatient)
Pulmonary service will continue to follow along
Assessment
-
Patient is an 83-year-old female with previous history of COPD, diabetes, CAD, PAD, hypertension presenting with progressive shortness of breath over the past week with associated nonproductive coughing. She has noticed orthopnea and lower
extremity swelling CT obtained demonstrating large right-sided diffuse nodular consolidation. She is placed on IV antibiotics for presumed pneumonia but there is suspicion of possible underlying malignancy. We are consulted for evaluation.
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
COPD-follows [facility] Dr Martínez
Last PFT 12/02/23-FEV1 1.09-81%
Former tobacco use - [id number]-quit 2016
PAD s/p Status post bilateral femoral endarterectomy with angioplasty, 07/26/21
Non-insulin dependent type 2 diabetes mellitus
History of peripheral neuropathy
History of aspiration pneumonia - 01/2023
CAD s/p RCA stent 01/2023
TIA
Hypothyroidism
HLD
HFpEF
HTN
BL Carotid disease
Assessment and plan:
#1. Acute hypoxic respiratory failure - Related to pneumonia with suspected lung mass in the setting of underlying COPD.
-Continue antibiotics for pneumonia, continue O2 support to keep saturation above 88%
-MRSA positive --> currently on IV vanco + zosyn
-Continue to optimize COPD - on DuoNebs QID + daliresp
-2+ pedal edema on exam, given Lasix 40 mg IV x 1 dose on 07/25; BNP 443 today (was 470 on 07/20/2024)
-CXR checked today (07/26) showing improvement in right perihilar pneumonia
#2. Right-sided pneumonia with concern for underlying mass with axillary lymphadenopathy and liver lesion concerning for metastasis.
-Patient also reports lack of appetite and weight loss over the last 6 months
-Continue IV vancomycin and Zosyn as ordered. MRSA screen positive. Legionella and strep pneumo antigen negative. Influenza AB screen negative. COVID-19 screen negative.
-Postobstructive pneumonia certainly in differential diagnosis
-S/p axillary lymph node biopsy on 07/23 --> follow up pathology
-If biopsy is unrevealing or additional tissue needed, may consider liver biopsy vs eventually bronchoscopy with biopsy and EBUS TBNA.
-In view of active pneumonia, favor continued treatment with antibiotics and repeat imaging in coming weeks before deciding on lung biopsy
#3. h/o COPD, with acute exacerbation
- Last day of IV Decadron today, continue DuoNeb 4 times daily, as needed albuterol
- Continue Roflumilast. However with reported weight loss, might need to reconsider if she should continue this medication.
- Await lymph node biopsies
- Patient follows up with Dr. Martínez as outpatient, has known emphysema on imaging. Mild obstruction noted on last pulmonary function testing.
- Smoking history noted with 50-PY HX--quit 2016
Will need outpatient pulmonary evaluation in our office for PFTs and 6MWT
Reviewed with patient
Pulmonary service will continue to follow along
Diagnostic Data
Chest X-Ray:
07/26/24-Findings suggesting moderate probable right perihilar pneumonia. Underlying mass not excluded. Slightly improved compared to CXR from 07/22/2024
07/20/24- Severe right mid to lower lung zone airspace disease/pneumonia. Suspect underlying right hilar mass/neoplasm. Recommend further evaluation with dedicated CT.
02/19/23- Bilateral parenchymal opacities, likely representing bilateral pneumonia. Interval increase in right upper lobe parenchymal opacity, highly suggestive of increasing pneumonia.
07/23/21- No radiographic evidence of acute cardiopulmonary abnormality.
CT Scan: CHEST 07/21/24- 1. There is a right hilar consolidation extending into the right upper, right lower and posterior right middle lobes with surrounding groundglass opacities. Findings likely represent pneumonia with possible underlying lesion.
Recommend short interval follow-up
2. There are numerous scattered pulmonary nodules which may be infectious in nature although are concerning for metastasis.
3. Moderate apical predominant paraseptal and centrilobular emphysematous changes.
4. 2.2 cm centrally hypodense lesion within the anterior right hepatic lobe appears new from prior CTA in 2022 and concerning for metastasis. Consider dedicated MRI abdomen for further evaluation.
CT AP 06/28/22- lung bases clear
Echo: 07/21/24- Left ventricle is small in size. Normal left ventricular systolic function. Left ventricular ejection fraction is 55% by volumetric assessment. Normal regional wall motion. Normal left ventricular wall thickness. Normal diastolic
function. Thickened mitral valve leaflets. Mitral valve opens normally. Mitral annular calcification. Mild mitral regurgitation. Calcified aortic valve. Aortic sclerosis without stenosis. Trileaflet aortic valve. Trace aortic regurgitation is seen.
Small anterior pericardial effusion. Since prior echocardiogram August 2023 which was reviewed, there is a small anterior pericardial effusion which is of no hemodynamic significance.
09/25/23- 1. Small left ventricle with preserved systolic function, ejection fraction 55-60%
2. Thickened mitral leaflets, mitral annular calcification, mild mitral regurgitation and normal left atrium
3. Marked aortic sclerosis without stenosis. No aortic regurgitation
4. Normal right heart with pulmonary artery systolic pressure of 33 mmHg.
In January 2023 the basal inferior and inferoseptal segments were hypokinetic and the ejection fraction was 45-50%. Mitral regurgitation was moderate, and the pulmonary artery systolic pressure was 45 mmHg.
PFTs:
PFT-02/14/2012- FVC 1.79 or 70%, FEV1 1.24 or 65%, ratio 69%. TLC 3.60 or 81%, DLCO 15.44, 81%
[place] 11/10/2019- FVC 1.81 or 83%, FEV1 1.25 or 79%, Ratio 71%.
ZACHARY: 05/20/2019-FVC: 1.75 L / 80 %; FEV1: 1.14 L / 70 % ; Ratio: 65 %; BD response: NoStable; moderate obstruction
[place]aspgzqaa-66-91-19:FVC: 1.87L/ 85%; FEV1: 1.27L/ 79%; ratio: 68% no BD response
PFT 06/14/20-FEV1 1.12 L-77%, FVC 1.71 L-86%, TLC 89%, RV 88%, DLCO 31%. Mild obstruction with normal lung findings and severe reduction in diffusing capacity.
Spirometry 9105/15/20-FEV1 920 mL-64%, FVC 1.49 L-75%, 80% BD response. Moderate obstruction.
PFT 09/12/21-FEV1 1.25 L-52%, FVC 2 L-63%, unable to perform lung volumes, DLCO 30%. Moderate obstruction and severe reduction in diffusing capacity.
Spirometry 03/19/22-FEV1 1.01 L-71%, FVC 1.41 L-73%, no significant improvement postbronchodilator. Mild obstruction.
PFT 09/03/22-FEV1 1.22-84%, FVC 1.94-97%, no significant BD response, unable to perform lung volumes, DLCO 31%, DLCO/VA 38%. Mild obstruction and severe reduction in diffusing capacity.
Spirometry 05/16/23-FEV1 740 mL-54%, FVC 1.24-65%, 8% improvement postbronchodilator. Moderate obstruction.
PFT 12/02/23-FEV1 1.09-81%, FVC 1.88-102%, 9% improvement postbronchodilator. Lung volumes unable to be performed. DLCO 47%, DLCO/VA 55%. Mild obstruction. Moderate reduction in diffusing capacity.
6 minute walk test-11/10/2019- baseline of 97% on RA, desaturaiton to 96%. HR 62-89bpm. ambulated 600 feet.
6 minute walk test-05/20/2019--POx at rest 96%; Johny: 95%,HR: 62-93 bpm, distance 300ft
6 minute walk test 06/14/20-Ambulated 600 feet with desaturation johny of 90% maximal heart rate of 91. No supplemental oxygen required.
6 minute walk test 03/14/21-Ambulated 450 feet with a desaturation johny of 99% and maximum heart rate of 89. No oxygen requirement.
6 minute walk test 09/12/21-Ambulated 525 feet with a desaturation johny of 97% maximum heart rate of 90. Maximum dyspnea scale score 2.0. No Oxygen required.
6 minute walk test 12/02/23-ambulated 752, desaturation johny 94% maximum heart rate of 73. Maximum dyspnea scale score 1. No supplemental oxygen needed.
Reports and relevant images were personally reviewed.
Total time spent today was 37 minutes for this encounter. Time includes reviewing laboratory test/imaging results, reviewing pertinent medical records, obtaining and reviewing medical history, performing an appropriate exam, ordering medications,
tests and procedures. Time also includes documentation of this encounter, coordinating patient care and communicating with other healthcare professionals. Total time does not include separately billed tests performed on this date of service.
Subjective Data
-
Date of Service:
Date of Service: July 26, 2024
Chief Complaint: Pulmonary Follow Up
Subjective:
Patient seen and evaluated this morning. Currently in the chair in no acute distress, breathing comfortably on 3 L/min. She has a minimal cough which is mostly dry. Currently not short of breath but still says she is having occasinal difficulty
breathing when she exerts herself. Currently denies chest pain, GENTILE, nausea, fevers or chills.
Review of Systems
General: Other (Negative unless mentioned above)
Objective Data
Data Reviewed
Vital Signs / I&O / Oxygen:
Vital Signs
Temp Pulse Resp BP Pulse Ox
97.8 F 76 18 158/55 94
07/26/24 07:26 07/26/24 07:38 07/26/24 07:38 07/26/24 07:26 07/26/24 07:38
Intake and Output
07/25/24 07/26/24 07/27/24
06:59 06:59 06:59
Intake Total 560 / 560 1020 / 1020
Balance 560 / 560 1020 / 1020
SaO2 94
Nasal Cannula flow liters per 3
minute
Physical Exam
General: Respiratory Distress (negative), Comfortable, Chills (negative), Sweats (negative) and Poor Appetite
HEENT: Normocephalic, Anicteric and Moist Mucous Membranes
Cardiovascular: S1-S2 and Peripheral Edema (LLE +2 pitting edema; no edema on RLE)
Respiratory: Wheeze (negative), Crackles (mainly in bases (L>R)), Rhonchi (negative), Non-Labored Respirations and Other (Diminished breath sounds bilaterally)
GI: Soft, Non Distended, Non Tender and Normal Bowel Sounds
Neurology: Awake, Alert, Oriented and Tremors (negative)
Skin: Warm, Dry, Cyanosis (negative) and Jaundice (negative)
Labs/Micro/Reports
Lab Data
07/25/24 05:51
--- NOTE | 2024-07-26 08:25 | PHA.VAN.FU ---
Vancomycin Assessment / Plan
- Assessment
Renal Function: Stable
In the past 24 hrs, patient has been: Afebrile
Concomitant Antimicrobials: pip/tazo
- Dosing Plan
Continue: vacnomycin 500 mg q24h
- Monitoring Plan
Peak Level: ordered for 07/26 829
Trough Level: ordered for 07/27 529
- Follow Up
Pharmacy will continue to follow.
Vancomycin Follow UP
- -
Patient Age: 83
Patient Sex: Female
Vancomycin Day #: 5
Indication: Pulmonary/Respiratory
Requesting Provider: ESTHER
Pertinent Antimicrobial Allergies:
No known drug allergies
Height / Weight:
Height 4 ft 11 in
Actual Weight 44.407 kg
Pertinent Past Medical History: [R] HILAR LUNG MASS; COPD; DM-1
- Vital Signs / Lab Results
Temp Pulse Resp BP Pulse Ox
97.8 F 76 18 158/55 94
07/26/24 07:26 07/26/24 07:38 07/26/24 07:38 07/26/24 07:26 07/26/24 07:38
Lab Results - Hematology
07/24/24 07/25/24
06:02 05:51
WBC 11.6 H 13.1 H
Lab Results - Chemistry
07/24/24 07/25/24
06:02 05:51
BUN 31 H 34 H
Creatinine 1.0 1.0
Estimated Creat Clear
--- NOTE | 2024-07-26 08:40 | PN.DE.MGMTRT ---
Insulin Management
- -
07/26/2024: Diabetes Management followup
83 year old female admitted 07/21 with Acute hypoxemic resp failure (4-5L here, none at home) due to likely COPD exacerbation from right hilar lung mass and post obstructive PNA (RLL PNA).
PMH includes COPD, bilateral femoral endarterectomy 07/20 and type 1 diabetes. Prior to admission was using tandem insulin pump with control IQ, Humalog insulin, Dexcom G 6, and sure steel infusion sets. She follows with endocrine in [place].
A1C 7.3%, Cr 0.9, eGFR >60
Pt awake, alert, sitting up in chair with increased WOB and wheezing. Able to discuss diabetes care plan.
Pump in place with CGM. Patient states that her daughter usually helps with the pump at home.
Pt is noted for Hyperglycemia throughout the weekend. Pt states she has been administering bolus at meal times.
Of note she received a single dose of steroids, likely contributing to worsening hyperglycemia
07/25 premeal glucose was 193 to 225. HS blood sugar was 226, FBG was 207 this AM. Will increase basal insulin doses at noted below.
Pump settings as follows:
Basal Correction CHO ratio target
12am 0.2 1:90 1:17 110
3am 0.6 1:90 1:17 110
7am 0.8 1:90 1:13 110
11:30am 0.5 1:90 1:14 110
5pm 0.7 1:90 1:20 110
8:30pm 0.2 1:90 1:27 110
24 hour basal total 12.3 units. her basal rate has been increased by 4 units total.
Discussed with nurse and instructed on use of bedside insulin pump work sheet. Will cont to follow
Diabetes History
- -
Type of Diabetes: 1
Pre-Admission Diabetes Regimen
Lab Results
Hemoglobin A1c 7.3 % (4.0-5.6) H 07/21/24 04:51
Insulin Pump Settings
IP Diabetes Regimen
07/25/24 07/25/24 07/25/24
12:16 16:55 21:41
POC Glucose 225 H 221 H 226 H
07/26/24
07:39
POC Glucose 207 H
Meal type: Dinner
Meal type: Lunch
Meal type: Breakfast
Amount consumed: 70%
Amount consumed: 100%
Patient Education
--- NOTE | 2024-07-26 08:46 | W.PN.HOSP.TC ---
Today's Communication/Plan
-
Pending pathology report
IV Decadron Q12
Chest x-ray today
Assessment / Plan
Assessment / Plan
Impression
Right lower lobe pneumonia
Right hilar mass
Acute hypoxic respiratory failure
History of COPD
Dyspnea on exertion/orthopnea/LE edema
History of PAD and CAD
Essential hypertension
Hypothyroidism
Type 1 diabetes mellitus
Chronic diarrhea
Plan
Right lower lobe pneumonia likely due to aspiration/right hilar mass
Right hilar mass seen on chest x-ray
Patient is afebrile with no leukocytosis
Chest CT with IV contrast for workup of hilar mass--- lung malignancy?
Appreciate pulmonology input
Changed to Zosyn for anaerobic coverage and postobstructive pneumonia.
MRSA positive--IV vancomycin
IV Decadron Q12 for SOB
Negative strep pneumo and Legionella antigen
VSE-recommend regular thin liquids
Consult IR for right axillary lymph node biopsy
S/p right axillary lymph node biopsy--- pathology report pending
CXR today
IV lasix x1 given for lower extremity edema-- improving
Acute hypoxic respiratory failure
Suspect due to aspiration pneumonia/COPD exacerbation/hilar mass
Currently on 4 to 5 L of oxygen
Wean as able
History of COPD
Likely COPD exacerbation(dyspnea and wheezing present)
Not on home O2
Continue Daliresp(Roflumilast)
DuoNebs ATC and as needed
Pulmonology eval
Dyspnea on exertion/orthopnea/LE edema
May be due to pneumonia or hilar mass
Echo reveals echo reveals LVEF 55% with normal regional wall motion and left ventricle wall thickness.
ASCVD (Hx of CAD, PAD)
s/p coronary stents, PAD stents and b/l femoral endarterectomies.
Continue aspirin uninterrupted
Hold Plavix for potential lung biopsy
Essential hypertension
Continue amlodipine and Nebivolol
Hypothyroidism
Continue levothyroxine
Type 1 diabetes mellitus
Continue home insulin pump
Monitor blood glucose
Chronic diarrhea
Patient was taking Imodium at home
Start Imodium 2 mg p.o. as needed
Monitor
Diabetic diet
Full code
SCDs
Anticipated Discharge: > 48 hours
Subjective/Interval History
-
Date of Service: July 26, 2024
No overnight events
Objective Data
-
Labs:
Laboratory Results
07/26/24
08:44
WBC Pending
Hgb Pending
Hct Pending
Plt Count Pending
Vital Signs:
Vital Signs
Temp Pulse Resp BP Pulse Ox
97.8 F 76 18 158/55 94
07/26/24 07:26 07/26/24 07:38 07/26/24 07:38 07/26/24 07:26 07/26/24 07:38
I&O
07/25/24 07/26/24 07/27/24
06:59 06:59 06:59
Intake Total 560 / 560 1020 / 1020
Balance 560 / 560 1020 / 1020
Review of Systems
-
All other systems: Reviewed and negative (Except mentioned)
Constitutional: Reports Fatigue
Physical Exam
-
General: Comfortable
HEENT: Normocephalic and Atraumatic
Respiratory: Wheezes and Non Labored Respirations
Cardiac: Regular Rhythm and S1/S2
GI: Soft, Nontender and Nondistended
Musculoskeletal: Edema, Left Lower Extrem (1+ pitting )
Neuro: AO x 3
Psych: Calm
Data Reviewed
-
Labs: Labs Reviewed by me and Discussed with Physician
[2024-07-26 08:54] LABS: Hematocrit 33.5 % (37.0-47.0); Hemoglobin 11.7 g/dL (12.0-16.0); Mean Corp Hgb Conc. 34.9 g/dL (33.0-37.0); Mean Corpuscular Hgb 30.5 pg (27.0-31.0); Mean Corpuscular Volume 87.2 fL (81.0-99.0); Mean Platelet Volume 8.8 fL (7.4-10.4); Platelet Count 361 10^3/uL (130-400); Red Blood Cell Count 3.84 10^6/uL (4.20-5.40); Red Cell Dist. Width 13.9 % (11.5-14.5); White Blood Cell Count 13.8 10^3/uL (4.8-10.8)
--- NOTE | 2024-07-26 08:55 | W.PN.UPDATE ---
Update Note
Progress Note Update
I saw and evaluated the patient. I reviewed the resident�s note and agree with findings and plan as documented in the resident�s note.
Patient denies shortness of breath.
Gen: NAD, awake and alert
Eyes: EOMI, PERRLA, no scleral icterus.
Neck: supple.
CV: RRR, +S1/S2, no m/r/g.
Resp: Decreased breath sounds in the right base and right midlung field
Skin: No rashes.
Neuro: CN 2-12 intact, non-focal.
Psych: Normal mood and affect.
07/21/24 21:47 Urine Legionella Urinary Antigen - Final
Negative for Legionella pneumophila Serogroup 1 antigen.
A negative result does not rule out the possiblity of
Legionella infection due to other serogroups or species of
Legionella. Clinical correlation is recommended.
07/21/24 21:47 Urine Streptococcus pneumoniae Antigen (M - Final
Negative for Streptococcus pneumoniae antigen.
A negative result does not exclude infection with
Streptococcus pneumoniae. Clinical correlation is
recommended.
07/21/24 06:03 Nose MRSA Screen - Final
Staph aureus MRSA
07/20/24 19:14 Nasal Swab Influenza Types A & B (BRENDA) - Final
Negative for Influenza A & B, NAAT
Negative results must be combined with clinical observations
and patient history.
Nucleic Acid Amplification test (NAAT)performed on the
[employer] NOW platform.
CT chest w/IV:
1. There is a right hilar consolidation extending into the right upper, right lower and posterior right middle lobes with surrounding groundglass opacities. Findings likely represent pneumonia with possible underlying lesion. Recommend short
interval follow-up
2. There are numerous scattered pulmonary nodules which may be infectious in nature although are concerning for metastasis.
3. Moderate apical predominant paraseptal and centrilobular emphysematous changes.
4. 2.2 cm centrally hypodense lesion within the anterior right hepatic lobe appears new from prior CTA in 2022 and concerning for metastasis. Consider dedicated MRI abdomen for further evaluation.
Echo: EF 55%, no RWMA, normal diastolic fxn, mild MR, trace AR, small anterior pericardial effusion
Acute hypoxemic respiratory failure:
-not on home O2, currently on 3L NC O2 (was on as much as 5L here)
-due to likely COPD exacerbation from right hilar lung mass and post obstructive RLL PNA
-strep pneumo and Legionella Ags NEG
-Speech eval completed, on regular diet
-s/p biopsy of axillary LAD, path pending
-cont to wean Decadron (stop after AM dose)
-cont Vanco/Zosyn
-pulm following
CAD, PAD:
-s/p coronary stents, PAD stents and B/L femoral endarterectomies
-cont ASA
-home plavix on hold for potential lung Bx
Other problems:
Chronic diarrhea: cont imodium
Essential HTN: cont amlodipine/Nebivolol
Hypothyroidism: cont levothyroxine
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
FULL/SCDs
[2024-07-26] MEDS: DECADRON 2 MG IV (09:26)
[2024-07-26] MEDS: BYSTOLIC 2.5 MG PO (09:26)
[2024-07-26] MEDS: DALIRESP 500 MCG PO (09:26)
[2024-07-26] MEDS: PROTONIX 40 MG PO (09:26)
[2024-07-26] MEDS: ASPIR LOW (ENTERIC COATED) 81 MG PO (09:26)
[2024-07-26] MEDS: NORVASC 2.5 MG PO ×2 (09:27→21:02)
[2024-07-26 09:32] LABS: Vancomycin Peak 13.3 ug/ml (18-26)
[2024-07-26] MEDS: IMODIUM 2 MG PO ×2 (09:32→22:42)
[2024-07-26] MEDS: PT'S OWN INSULIN PUMP - HumaLOG 6.68 UNIT SC (09:34)
[2024-07-26 09:43] LABS: NT-proBNP 443 pg/ml
[2024-07-26 11:53] LABS: Glucose - Point of Care 222 mg/dl (70-99)
[2024-07-26] MEDS: PT'S OWN INSULIN PUMP - HumaLOG 6.48 UNIT SC (13:58)
--- NOTE | 2024-07-26 15:48 | CM ---
CM follwoing re: discharge planning.
reviewed pt's chart, met with pt.
PT and OT continue recommending SNF vs home PT.
Pt reports she lives alone in a 2SH, has a dog, has 2 daughters, one lives locally and another in [place]. Pt reports she was born and grew up in [place], emigrated to [facility] at the age of 18.
Pt reports she was before at [facility], liked there very much and she is not sure whether or not she should go to a SNF for a short term rehab or returning back home with VN services. CM explained to the pt the benefits of a short term rehab
and pt agrees to make a referral to [facility].
A referral to [facility] made.
D/C plan: most likely [facility] SN[facility] if accepted. Pt still discussing SNF vs Home PT options with the daughter.
CM will follow with discharge plan updates as hospitalization progresses
[2024-07-26 16:08] VITALS: BP 158/65
[2024-07-26 16:43] LABS: Glucose - Point of Care 204 mg/dl (70-99)
[2024-07-26] MEDS: FEOSOL 325 MG PO (17:15)
[2024-07-26] MEDS: LIPITOR 80 MG PO (17:15)
[2024-07-26] MEDS: PT'S OWN INSULIN PUMP - HumaLOG 3.75 UNIT SC (17:57)
[2024-07-26 20:57] LABS: Glucose - Point of Care 252 mg/dl (70-99)
[2024-07-26] MEDS: CARDURA 1 MG PO (21:02)
[2024-07-26] MEDS: NEURONTIN 100 MG PO (21:02)
[2024-07-26 22:22] LABS: Glucose - Point of Care 253 mg/dl (70-99)
[2024-07-26] MEDS: PT'S OWN INSULIN PUMP - HumaLOG 9 UNIT SC (22:42)
[2024-07-26 23:13] VITALS: BP 135/56
[2024-07-27 00:17] LABS: Glucose - Point of Care 270 mg/dl (70-99)
[2024-07-27] MEDS: ZOSYN 50 IV ×4 (04:08→21:09)
[2024-07-27] MEDS: VENTOLIN NEBULES 2.5 MG INH (04:51)
[2024-07-27 05:21] VITALS: BMI 20.3
[2024-07-27 05:57] LABS: Hematocrit 34.2 % (37.0-47.0); Hemoglobin 11.6 g/dL (12.0-16.0); Mean Corp Hgb Conc. 33.9 g/dL (33.0-37.0); Mean Corpuscular Hgb 30.2 pg (27.0-31.0); Mean Corpuscular Volume 89.1 fL (81.0-99.0); Mean Platelet Volume 8.8 fL (7.4-10.4); Platelet Count 353 10^3/uL (130-400); Red Blood Cell Count 3.84 10^6/uL (4.20-5.40); Red Cell Dist. Width 14.1 % (11.5-14.5); White Blood Cell Count 13.6 10^3/uL (4.8-10.8)
[2024-07-27 06:25] LABS: Vancomycin Trough 6.5 ug/ml (5-20)
[2024-07-27] MEDS: VANCOCIN HCL 500 MG 100 IV ×2 (06:32→11:30)
[2024-07-27] MEDS: SYNTHROID 100 MCG PO (06:33)
[2024-07-27 07:10] VITALS: BP 147/58
[2024-07-27 07:18] LABS: Glucose - Point of Care 146 mg/dl (70-99)
--- NOTE | 2024-07-27 07:26 | PN.DE.MGMTRT ---
Insulin Management
- -
07/27/2024: Diabetes Management followup
83 year old female admitted 07/21 with Acute hypoxemic resp failure (4-5L here, none at home) due to likely COPD exacerbation from right hilar lung mass and post obstructive PNA (RLL PNA).
PMH includes COPD, bilateral femoral endarterectomy 07/20 and type 1 diabetes. Prior to admission was using tandem insulin pump with control IQ, Humalog insulin, Dexcom G 6, and sure steel infusion sets. She follows with endocrine in [place].
A1C 7.3%, Cr 0.9, eGFR >60
Pt awake, alert, sitting up in chair, offers no complaints. Able to discuss diabetes care plan.
Pump in place with CGM. Patient states that she changed her infusion set yesterday.
07/26 adjusted basal rate. Noted for ongoing Hyperglycemia but overall glucose is better than yesterday, premeal glucose 204 to 222.
Pt states she has been administering bolus at meal times. HS blood sugar was 253, FBG was 146 this AM.
Will increase basal rate from 11:30 am to MN at noted below.
Pump settings as follows:
Basal Correction CHO ratio target
12am 0.2 1:90 1:17 110
3am 0.6 1:90 1:17 110
7am 0.8 1:90 1:13 110
11:30am 0.7 1:90 1:14 110
5pm 0.9 1:90 1:20 110
8:30pm 0.3 1:90 1:27 110
24 hour basal total 14.45 units. her basal rate has been increased by 2.2 units total.
Discussed with nurse and instructed on use of bedside insulin pump work sheet. Will cont to follow
Diabetes History
- -
Type of Diabetes: 1
Pre-Admission Diabetes Regimen
Lab Results
Hemoglobin A1c 7.3 % (4.0-5.6) H 07/21/24 04:51
Insulin Pump Settings
IP Diabetes Regimen
07/26/24 07/26/24 07/26/24
07:39 11:52 16:42
POC Glucose 207 H 222 H 204 H
07/26/24 07/26/24 07/27/24
20:55 22:21 00:15
POC Glucose 252 H 253 H 270 H
07/27/24
07:16
POC Glucose 146 H
Meal type: Dinner
Meal type: Breakfast
Amount consumed: 70%
Amount consumed: 100%
Patient Education
[2024-07-27] MEDS: DUONEB 3 ML INH ×4 (07:35→19:23)
--- NOTE | 2024-07-27 07:54 | W.PN.HOSP.TC ---
Today's Communication/Plan
-
S/p right axillary lymph node biopsy--- pathology report pending
CXR slight improvement of moderate probable right perihilar pneumonia.
Potential discharge-- further workup can be done outpatient
Home O2 assessment
Negative DVT on lower extremity ultrasound
Assessment / Plan
Assessment / Plan
Impression
Right lower lobe pneumonia
Right hilar mass
Acute hypoxic respiratory failure
History of COPD
Dyspnea on exertion/orthopnea/LE edema
History of PAD and CAD
Essential hypertension
Hypothyroidism
Type 1 diabetes mellitus
Chronic diarrhea
Plan
Right lower lobe pneumonia likely due to aspiration/right hilar mass
Right hilar mass seen on chest x-ray
Patient is afebrile with no leukocytosis
Chest CT with IV contrast for workup of hilar mass--- lung malignancy?
Appreciate pulmonology input
Changed to Zosyn for anaerobic coverage and postobstructive pneumonia.
MRSA positive--IV vancomycin
IV Decadron weaned off
Negative strep pneumo and Legionella antigen
VSE-recommend regular thin liquids
Consult IR for right axillary lymph node biopsy
S/p right axillary lymph node biopsy--- pathology report pending
CXR slight improvement of moderate probable right perihilar pneumonia.
Potential discharge with further workup outpatient
Negative DVT on lower extremity ultrasound
Acute hypoxic respiratory failure
Suspect due to aspiration pneumonia/COPD exacerbation/hilar mass
Currently on 4 to 5 L of oxygen
Wean as able
History of COPD
Likely COPD exacerbation(dyspnea and wheezing present)
Not on home O2
Continue Daliresp(Roflumilast)
DuoNebs ATC and as needed
Pulmonology eval
Dyspnea on exertion/orthopnea/LE edema
May be due to pneumonia or hilar mass
Echo reveals echo reveals LVEF 55% with normal regional wall motion and left ventricle wall thickness.
ASCVD (Hx of CAD, PAD)
s/p coronary stents, PAD stents and b/l femoral endarterectomies.
Continue aspirin uninterrupted
Hold Plavix for potential lung biopsy
Essential hypertension
Continue amlodipine and Nebivolol
Hypothyroidism
Continue levothyroxine
Type 1 diabetes mellitus
Continue home insulin pump
Monitor blood glucose
Chronic diarrhea
Patient was taking Imodium at home
Start Imodium 2 mg p.o. as needed
Monitor
Diabetic diet
Full code
SCDs
Anticipated Discharge: Within 24 hours
Subjective/Interval History
-
Date of Service: July 27, 2024
No overnight event
Objective Data
-
Labs:
Laboratory Results
07/27/24
05:28
WBC 13.6 H
Hgb 11.6 L
Hct 34.2 L
Plt Count 353
Vital Signs:
Vital Signs
Temp Pulse Resp BP Pulse Ox
97.8 F 88 20 135/56 94
07/26/24 23:13 07/27/24 04:52 07/27/24 04:52 07/26/24 23:13 07/26/24 23:13
I&O
07/26/24 07/27/24 07/28/24
06:59 06:59 06:59
Intake Total 1020 / 1020 760 / 760
Balance 1020 / 1020 760 / 760
Review of Systems
-
All other systems: Reviewed and negative
Physical Exam
-
General: Comfortable
HEENT: Normocephalic and Atraumatic
Respiratory: Wheezes
Cardiac: Regular Rhythm and S1/S2
GI: Nondistended
Musculoskeletal: Edema, Right Lower Extrem (1+ pitting) and Edema, Left Lower Extrem (1+pitting)
Neuro: AO x 3
Psych: Calm
Data Reviewed
-
Labs: Labs Reviewed by me and Discussed with Physician
--- NOTE | 2024-07-27 08:21 | PHA.VAN.FU ---
Vancomycin Assessment / Plan
- Assessment
Renal Function: Stable
WBC's are: Stable
In the past 24 hrs, patient has been: Afebrile
Concomitant Antimicrobials: piperacillin/tazobactam
- Assessment - Therapeutic Drug Monitoring
Extrapolated Cmax (mcg/mL): 14.1
Peak level was drawn: Appropriately (drawn ~1.7H)
Extrapolated Cmin (mcg/mL): 6.4
Trough Drawn: Appropriately
Levels were drawn: At steady state (levels drawn after 3rd maintenance dose)
Calculated AUC (mcg*h/mL): 234
Calculated ke: 0.0345
Calculated half life (H): 20.1
Calculated Vd (L): 62
Calculated Vanc CL (ml/min): 36
- Dosing Plan
Adjust Regimen to: Vanc 1000mg Q24H - give additional 500mg x1 today and start 1g 07/28
New Regimen Predicts: AUC (477), Peak (28.7), Trough (13)
- Monitoring Plan
No level(s) ordered at this time: consider levels in next few days
- Follow Up
Pharmacy will continue to follow.
Vancomycin Follow UP
- -
Patient Age: 83
Patient Sex: Female
Vancomycin Day #: 6
Indication: Pulmonary/Respiratory
Requesting Provider: Dr. Ríos (resident)
Pertinent Antimicrobial Allergies:
No known drug allergies
Height / Weight:
Height 4 ft 11 in
Actual Weight 45.586 kg
Pertinent Past Medical History: DM I
- Vital Signs / Lab Results
Temp Pulse Resp BP Pulse Ox
98.3 F 91 20 147/58 93
07/27/24 07:10 07/27/24 07:38 07/27/24 07:38 07/27/24 07:10 07/27/24 07:38
Lab Results - Hematology
07/25/24 07/26/24 07/27/24
05:51 08:44 05:28
WBC 13.1 H 13.8 H 13.6 H
Lab Results - Chemistry
07/25/24
05:51
BUN 34 H
Creatinine 1.0
Estimated Creat Clear
Therapeutic Drug Monitoring
Vancomycin Peak 13.3 ug/ml (18-26) L 07/26/24 08:44
Vancomycin Trough 6.5 ug/ml (5-20) 07/27/24 05:28
--- NOTE | 2024-07-27 08:27 | W.PN.PUL3 ---
Today's Communication / Plan
-
Await pathology from lymph node biopsy - still pending
prn lasix
Abx with Vanc/Zosyn
Check sputum culture if patient can produce a decent sample, however utility is low given she has been on antibiotics now for several days
If weight loss continues then would stop Daliresp and transition to Ensifentrine (can be done as an outpatient)
Pulmonary service will continue to briefly follow along
Assessment
-
Patient is an 83-year-old female with previous history of COPD, diabetes, CAD, PAD, hypertension presenting with progressive shortness of breath over the past week with associated nonproductive coughing. She has noticed orthopnea and lower
extremity swelling CT obtained demonstrating large right-sided diffuse nodular consolidation. She is placed on IV antibiotics for presumed pneumonia but there is suspicion of possible underlying malignancy. We are consulted for evaluation.
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
COPD-follows [facility] Dr Martínez
Last PFT 12/02/23-FEV1 1.09-81%
Former tobacco use - [id number]-quit 2016
PAD s/p Status post bilateral femoral endarterectomy with angioplasty, 07/26/21
Non-insulin dependent type 2 diabetes mellitus
History of peripheral neuropathy
History of aspiration pneumonia - 01/2023
CAD s/p RCA stent 01/2023
TIA
Hypothyroidism
HLD
HFpEF
HTN
BL Carotid disease
Assessment and plan:
#1. Acute hypoxic respiratory failure - Related to pneumonia with suspected lung mass in the setting of underlying COPD.
-Continue antibiotics for pneumonia, continue O2 support to keep saturation above 88%
-MRSA positive --> currently on IV vanco + zosyn
-Continue to optimize COPD - on DuoNebs QID + daliresp
-Patient has lower extremity, given Lasix 40 mg IV x 1 dose on 07/25; BNP 443 on 07/26 (was 470 on 07/20/2024); LE duplex negative for DVT on 07/26
-CXR checked on 07/26 which shows improvement in right perihilar pneumonia
#2. Right-sided pneumonia with concern for underlying mass with axillary lymphadenopathy and liver lesion concerning for metastasis.
-Patient also reports lack of appetite and weight loss over the last 6 months
-IV vancomycin and Zosyn as ordered. MRSA screen positive. Legionella and strep pneumo antigen negative. Influenza AB screen negative. COVID-19 screen negative.
-Postobstructive pneumonia certainly in differential diagnosis
-s/p axillary lymph node biopsy on 07/23 --> follow up pathology
-If biopsy is unrevealing or additional tissue needed, may consider liver biopsy vs eventually bronchoscopy with biopsy and EBUS TBNA.
-In view of active pneumonia, favor continued treatment with antibiotics and repeat imaging in coming weeks before deciding on lung biopsy
#3. h/o COPD, with acute exacerbation
- Last day of IV Decadron on 07/26, continue DuoNeb 4 times daily, as needed albuterol
- Continue Roflumilast. However with reported weight loss, might need to reconsider if she should continue this medication.
- Await pathology from lymph node biopsy
- Patient follows up with Dr. Martínez as outpatient, has known emphysema on imaging. Mild obstruction noted on last pulmonary function testing.
- Smoking history noted with 50-PY HX--quit 2016
PT/OT - she is very deconditioned
Will need outpatient pulmonary evaluation in our office for PFTs and 6MWT
Reviewed with patient
Pulmonary service will continue to briefly follow along
Diagnostic Data
Chest X-Ray:
07/26/24-Findings suggesting moderate probable right perihilar pneumonia. Underlying mass not excluded. Slightly improved compared to CXR from 07/22/2024
07/20/24- Severe right mid to lower lung zone airspace disease/pneumonia. Suspect underlying right hilar mass/neoplasm. Recommend further evaluation with dedicated CT.
02/19/23- Bilateral parenchymal opacities, likely representing bilateral pneumonia. Interval increase in right upper lobe parenchymal opacity, highly suggestive of increasing pneumonia.
07/23/21- No radiographic evidence of acute cardiopulmonary abnormality.
CT Scan: CHEST 07/21/24- 1. There is a right hilar consolidation extending into the right upper, right lower and posterior right middle lobes with surrounding groundglass opacities. Findings likely represent pneumonia with possible underlying lesion.
Recommend short interval follow-up
2. There are numerous scattered pulmonary nodules which may be infectious in nature although are concerning for metastasis.
3. Moderate apical predominant paraseptal and centrilobular emphysematous changes.
4. 2.2 cm centrally hypodense lesion within the anterior right hepatic lobe appears new from prior CTA in 2022 and concerning for metastasis. Consider dedicated MRI abdomen for further evaluation.
CT AP 06/28/22- lung bases clear
Echo: 07/21/24- Left ventricle is small in size. Normal left ventricular systolic function. Left ventricular ejection fraction is 55% by volumetric assessment. Normal regional wall motion. Normal left ventricular wall thickness. Normal diastolic
function. Thickened mitral valve leaflets. Mitral valve opens normally. Mitral annular calcification. Mild mitral regurgitation. Calcified aortic valve. Aortic sclerosis without stenosis. Trileaflet aortic valve. Trace aortic regurgitation is seen.
Small anterior pericardial effusion. Since prior echocardiogram August 2023 which was reviewed, there is a small anterior pericardial effusion which is of no hemodynamic significance.
09/25/23- 1. Small left ventricle with preserved systolic function, ejection fraction 55-60%
2. Thickened mitral leaflets, mitral annular calcification, mild mitral regurgitation and normal left atrium
3. Marked aortic sclerosis without stenosis. No aortic regurgitation
4. Normal right heart with pulmonary artery systolic pressure of 33 mmHg.
In January 2023 the basal inferior and inferoseptal segments were hypokinetic and the ejection fraction was 45-50%. Mitral regurgitation was moderate, and the pulmonary artery systolic pressure was 45 mmHg.
PFTs:
PFT-02/14/2012- FVC 1.79 or 70%, FEV1 1.24 or 65%, ratio 69%. TLC 3.60 or 81%, DLCO 15.44, 81%
Dom 11/10/2019- FVC 1.81 or 83%, FEV1 1.25 or 79%, Ratio 71%.
DOM: 05/20/2019-FVC: 1.75 L / 80 %; FEV1: 1.14 L / 70 % ; Ratio: 65 %; BD response: NoStable; moderate obstruction
[id number]-:FVC: 1.87L/ 85%; FEV1: 1.27L/ 79%; ratio: 68% no BD response
PFT 06/14/20-FEV1 1.12 L-77%, FVC 1.71 L-86%, TLC 89%, RV 88%, DLCO 31%. Mild obstruction with normal lung findings and severe reduction in diffusing capacity.
Spirometry -FEV1 920 mL-64%, FVC 1.49 L-75%, 80% BD response. Moderate obstruction.
PFT 09/12/21-FEV1 1.25 L-52%, FVC 2 L-63%, unable to perform lung volumes, DLCO 30%. Moderate obstruction and severe reduction in diffusing capacity.
Spirometry 03/19/22-FEV1 1.01 L-71%, FVC 1.41 L-73%, no significant improvement postbronchodilator. Mild obstruction.
PFT 09/03/22-FEV1 1.22-84%, FVC 1.94-97%, no significant BD response, unable to perform lung volumes, DLCO 31%, DLCO/VA 38%. Mild obstruction and severe reduction in diffusing capacity.
Spirometry 05/16/23-FEV1 740 mL-54%, FVC 1.24-65%, 8% improvement postbronchodilator. Moderate obstruction.
PFT 12/02/23-FEV1 1.09-81%, FVC 1.88-102%, 9% improvement postbronchodilator. Lung volumes unable to be performed. DLCO 47%, DLCO/VA 55%. Mild obstruction. Moderate reduction in diffusing capacity.
6 minute walk test-11/10/2019- baseline of 97% on RA, desaturaiton to 96%. HR 62-89bpm. ambulated 600 feet.
6 minute walk test-05/20/2019--POx at rest 96%; Johny: 95%,HR: 62-93 bpm, distance 300ft
6 minute walk test 06/14/20-Ambulated 600 feet with desaturation johny of 90% maximal heart rate of 91. No supplemental oxygen required.
6 minute walk test 03/14/21-Ambulated 450 feet with a desaturation johny of 99% and maximum heart rate of 89. No oxygen requirement.
6 minute walk test 09/12/21-Ambulated 525 feet with a desaturation johny of 97% maximum heart rate of 90. Maximum dyspnea scale score 2.0. No Oxygen required.
6 minute walk test 12/02/23-ambulated 752, desaturation johny 94% maximum heart rate of 73. Maximum dyspnea scale score 1. No supplemental oxygen needed.
Reports and relevant images were personally reviewed.
Total time spent today was 39 minutes for this encounter. Time includes reviewing laboratory test/imaging results, reviewing pertinent medical records, obtaining and reviewing medical history, performing an appropriate exam, ordering medications,
tests and procedures. Time also includes documentation of this encounter, coordinating patient care and communicating with other healthcare professionals. Total time does not include separately billed tests performed on this date of service.
Subjective Data
-
Date of Service:
Date of Service: July 27, 2024
Chief Complaint: Pulmonary Follow Up
Subjective:
Pt seen and evaluated this AM. Pt on 3L/min NC and breathing comfortably. She says she was SOB last night. She currently denies cough, GENTILE, chest pain, abd pain, N/V/f/c.
Review of Systems
General: Other (Negative unless mentioned above)
Objective Data
Data Reviewed
Vital Signs / I&O / Oxygen:
Vital Signs
Temp Pulse Resp BP Pulse Ox
98.3 F 91 20 147/58 93
07/27/24 07:10 07/27/24 07:38 07/27/24 07:38 07/27/24 07:10 07/27/24 07:38
Intake and Output
07/26/24 07/27/24 07/28/24
06:59 06:59 06:59
Intake Total 1020 / 1020 760 / 760
Balance 1020 / 1020 760 / 760
SaO2 93
Nasal Cannula flow liters per 3
minute
Physical Exam
General: Respiratory Distress (negative), Comfortable, Chills (negative), Sweats (negative), Poor Appetite and Other (deconditioned)
HEENT: Normocephalic, Anicteric and Moist Mucous Membranes
Cardiovascular: S1-S2 and Peripheral Edema (trace LE edema bilaterally)
Respiratory: Wheeze (occasionally heard in bases bilaterally), Crackles (mainly in bases (L>R)), Rhonchi (negative), Non-Labored Respirations, Stridor (negative) and Other (Diminished breath sounds bilaterally)
GI: Soft, Non Distended, Non Tender and Normal Bowel Sounds
Neurology: Awake, Alert, Oriented and Tremors (negative)
Skin: Warm, Dry, Cyanosis (negative) and Jaundice (negative)
Labs/Micro/Reports
Lab Data
07/27/24 05:28
07/25/24 05:51
[2024-07-27] MEDS: BYSTOLIC 2.5 MG PO (08:53)
[2024-07-27] MEDS: PROTONIX 40 MG PO (08:53)
[2024-07-27] MEDS: DALIRESP 500 MCG PO (08:53)
[2024-07-27] MEDS: IMODIUM 2 MG PO (08:54)
[2024-07-27] MEDS: ASPIR LOW (ENTERIC COATED) 81 MG PO (08:54)
[2024-07-27] MEDS: NORVASC 2.5 MG PO ×2 (08:54→21:09)
[2024-07-27] MEDS: PT'S OWN INSULIN PUMP - HumaLOG 5.23 UNIT SC (09:08)
--- NOTE | 2024-07-27 09:43 | W.PN.UPDATE ---
Update Note
Progress Note Update
I saw and evaluated the patient. I reviewed the resident�s note and agree with findings and plan as documented in the resident�s note.
No new complaints.
Gen: NAD, awake and alert, appears chronically ill
Eyes: EOMI, PERRLA, no scleral icterus.
Neck: supple.
CV: remains RRR, +S1/S2, no m/r/g.
Resp: Decreased breath sounds in the right base, exp wheezes R base
Skin: No rashes.
Neuro: CN 2-12 intact, non-focal.
Psych: Normal mood and affect.
07/21/24 21:47 Urine Legionella Urinary Antigen - Final
Negative for Legionella pneumophila Serogroup 1 antigen.
A negative result does not rule out the possiblity of
Legionella infection due to other serogroups or species of
Legionella. Clinical correlation is recommended.
07/21/24 21:47 Urine Streptococcus pneumoniae Antigen (M - Final
Negative for Streptococcus pneumoniae antigen.
A negative result does not exclude infection with
Streptococcus pneumoniae. Clinical correlation is
recommended.
07/21/24 06:03 Nose MRSA Screen - Final
Staph aureus MRSA
07/20/24 19:14 Nasal Swab Influenza Types A & B (BRENDA) - Final
Negative for Influenza A & B, NAAT
Negative results must be combined with clinical observations
and patient history.
Nucleic Acid Amplification test (NAAT)performed on the
[employer] NOW platform.
CT chest w/IV:
1. There is a right hilar consolidation extending into the right upper, right lower and posterior right middle lobes with surrounding groundglass opacities. Findings likely represent pneumonia with possible underlying lesion. Recommend short
interval follow-up
2. There are numerous scattered pulmonary nodules which may be infectious in nature although are concerning for metastasis.
3. Moderate apical predominant paraseptal and centrilobular emphysematous changes.
4. 2.2 cm centrally hypodense lesion within the anterior right hepatic lobe appears new from prior CTA in 2022 and concerning for metastasis. Consider dedicated MRI abdomen for further evaluation.
Echo: EF 55%, no RWMA, normal diastolic fxn, mild MR, trace AR, small anterior pericardial effusion
Acute hypoxemic respiratory failure:
-not on home O2, currently on 3L NC O2 (was on as much as 5L here)
-due to likely COPD exacerbation from right hilar lung mass and post obstructive RLL PNA
-strep pneumo and Legionella Ags NEG
-Speech eval completed, on regular diet
-s/p biopsy of axillary LAD, path pending
-was on Decadron, now off
-cont Vanco/Zosyn for now, transition to PO abx regimen on d/c to complete 10 days
-pulm following
CAD, PAD:
-s/p coronary stents, PAD stents and B/L femoral endarterectomies
-cont ASA
-home plavix on hold for potential lung Bx
Other problems:
Chronic diarrhea: cont imodium
Essential HTN: cont amlodipine/Nebivolol
Hypothyroidism: cont levothyroxine
DM1: cont home insulin pump,
FULL/SCDs
[2024-07-27 11:45] LABS: Glucose - Point of Care 136 mg/dl (70-99)
[2024-07-27] MEDS: VITAMIN B-12 100 MCG PO (12:52)
[2024-07-27] MEDS: VITAMIN D3 (cholecalciferol) 25 MCG PO (12:52)
[2024-07-27] MEDS: PT'S OWN INSULIN PUMP - HumaLOG 4.93 UNIT SC (14:01)
--- NOTE | 2024-07-27 14:10 | CM ---
CM following re: discharge planning.
Reviewed pt's chart, met with pt and spoke to pt's daughter Kymberly over the phone to update on discharge plan progress.
PT and OT continue recommending SNF vs home PT.
Pt reports she lives alone in a H, has a dog, has 2 daughters, one lives locally and another in [place]. Pt reports she was born and grew up in [place], emigrated to [place] [place] at the age of 18.
CM spoke to pt's daughter Kymberly and she stated she really wants to go with pt's wishes and at he same time daughter brought her concerns regarding pt returning back home with unsteady on her feet and home Oxygen. Pt's daughter stated she spoke to
her mother and she agrees to go to either [facility] or [facility] SNF. Pt's daughter stated she was before at [facility] and she liked there.
A referral to [facility] made. Per [facility] director of primary care a referral is under review.
CM spoke to [facility] director of primary care and she confirmed that a referral is under review.
D/C plan: preferred SNF: [facility] or [facility].
CM will follow to assist pt with discharge to a preferred SNF.
[2024-07-27 15:15] VITALS: BP 135/50
--- NOTE | 2024-07-27 15:36 | W.PN.UPDATE ---
Update Note
Progress Note Update
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 No prior history of breast cancer confirmed by daughter and patient. Had mammogram several
years ago. The daughter and patient requested referral to oncology for further steps and treatment options. The daughter was concerned about patient's age that she will be turning 84 next month and whether her body would be able to tolerate
additional procedures/chemotherapy/surgery if needed. I reassured her that these are important discussion to have with the oncology team, and that any decision will be as another discussion of options, with careful consideration of patient's wishes
and overall health status. Will consult oncology.
[2024-07-27 16:48] VITALS: BP 154/56; PULSE 86; O2SAT 95
[2024-07-27 17:02] LABS: Glucose - Point of Care 153 mg/dl (70-99)
[2024-07-27] MEDS: FEOSOL 325 MG PO (17:12)
[2024-07-27] MEDS: LIPITOR 80 MG PO (17:12)
[2024-07-27] MEDS: PT'S OWN INSULIN PUMP - HumaLOG 6.66 UNIT SC (17:26)
[2024-07-27] MEDS: CARDURA 1 MG PO (21:09)
[2024-07-27] MEDS: NEURONTIN 100 MG PO (21:09)
[2024-07-27 21:42] LABS: Glucose - Point of Care 96 mg/dl (70-99)
[2024-07-27] MEDS: PT'S OWN INSULIN PUMP - HumaLOG SC (22:49)
[2024-07-27 23:54] VITALS: BP 146/54
[2024-07-28] MEDS: VENTOLIN NEBULES 2.5 MG INH (02:31)
[2024-07-28] MEDS: ZOSYN 50 IV ×4 (04:28→22:38)
[2024-07-28 05:28] VITALS: BMI 20.6
[2024-07-28] MEDS: VANCOCIN 200 IV (05:54)
[2024-07-28] MEDS: SYNTHROID 100 MCG PO (05:55)
[2024-07-28] MEDS: TYLENOL 650 MG PO ×2 (05:59→23:15)
[2024-07-28 07:10] LABS: Glucose - Point of Care 412 mg/dl (70-99)
[2024-07-28 07:40] LABS: Glucose 395 mg/dl (70-99)
[2024-07-28 07:42] VITALS: BP 129/45
[2024-07-28] MEDS: DUONEB 3 ML INH ×4 (07:42→20:35)
--- NOTE | 2024-07-28 07:45 | W.PN.UPDATE ---
Update Note
Progress Note Update
I saw and evaluated the patient. I reviewed the resident�s note and agree with findings and plan as documented in the resident�s note.
No new complaints.
Gen: NAD, awake and alert, appears chronically ill
Eyes: EOMI, PERRLA, no scleral icterus.
Neck: supple.
CV: continues to remain RRR, +S1/S2, no m/r/g.
Resp: Decreased breath sounds and rales in the right base
Skin: No rashes.
Neuro: CN 2-12 intact, non-focal.
Psych: Normal mood and affect.
07/21/24 21:47 Urine Legionella Urinary Antigen - Final
Negative for Legionella pneumophila Serogroup 1 antigen.
A negative result does not rule out the possiblity of
Legionella infection due to other serogroups or species of
Legionella. Clinical correlation is recommended.
07/21/24 21:47 Urine Streptococcus pneumoniae Antigen (M - Final
Negative for Streptococcus pneumoniae antigen.
A negative result does not exclude infection with
Streptococcus pneumoniae. Clinical correlation is
recommended.
07/21/24 06:03 Nose MRSA Screen - Final
Staph aureus MRSA
07/20/24 19:14 Nasal Swab Influenza Types A & B (BRENDA) - Final
Negative for Influenza A & B, NAAT
Negative results must be combined with clinical observations
and patient history.
Nucleic Acid Amplification test (NAAT)performed on the
[employer] NOW platform.
CT chest w/IV:
1. There is a right hilar consolidation extending into the right upper, right lower and posterior right middle lobes with surrounding groundglass opacities. Findings likely represent pneumonia with possible underlying lesion. Recommend short
interval follow-up
2. There are numerous scattered pulmonary nodules which may be infectious in nature although are concerning for metastasis.
3. Moderate apical predominant paraseptal and centrilobular emphysematous changes.
4. 2.2 cm centrally hypodense lesion within the anterior right hepatic lobe appears new from prior CTA in 2022 and concerning for metastasis. Consider dedicated MRI abdomen for further evaluation.
Echo: EF 55%, no RWMA, normal diastolic fxn, mild MR, trace AR, small anterior pericardial effusion
Acute hypoxemic respiratory failure:
-not on home O2, currently on 3L NC O2 (was on as much as 5L here)
-due to likely COPD exacerbation from right hilar lung mass and post obstructive RLL PNA
-strep pneumo and Legionella Ags NEG
-Speech eval completed, on regular diet
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 c/s ONC.
-was on Decadron, now off
-cont Vanco/Zosyn for now, transition to PO abx regimen on d/c to complete 10 days
-pulm following
DM1:
-pt has been having difficulty using her insulin pump
-will stop insulin pump and transition to basal/bolus insulin
CAD, PAD:
-s/p coronary stents, PAD stents and B/L femoral endarterectomies
-cont ASA/Plavix
Other problems:
Chronic diarrhea: cont Imodium
Essential HTN: cont amlodipine/Nebivolol
Hypothyroidism: cont levothyroxine
Pt's daughter updated on speaker phone.
FULL/SCDs
Total time spent on today's encounter was 50 minutes which included time spent in counseling the patient/family regarding diagnosis and treatment plan as listed above, goals of care, and symptom management. Case was discussed with nursing staff,
specialists, and care coordinators/case management. All labs and imaging personally reviewed by me. Remainder the time spent in detailed review of previous records, lab data, imaging, and other medical provider documentation.
--- NOTE | 2024-07-28 07:46 | W.PN.HOSP.TC ---
Today's Communication/Plan
-
lymph node biopsy reveals lung adenocarcinoma c/w breast primary
Letrozole 2.5 mg per oncology team
Insulin pump off
Start basal/bolus
Assessment / Plan
Assessment / Plan
Impression
Right lower lobe pneumonia
Right hilar mass
Acute hypoxic respiratory failure
History of COPD
Dyspnea on exertion/orthopnea/LE edema
History of PAD and CAD
Essential hypertension
Hypothyroidism
Type 1 diabetes mellitus
Chronic diarrhea
Plan
Right lower lobe pneumonia likely due to aspiration/right hilar mass
Right hilar mass seen on chest x-ray
Patient is afebrile with no leukocytosis
Chest CT with IV contrast for workup of hilar mass--- lung malignancy?
Appreciate pulmonology input
Changed to Zosyn for anaerobic coverage and postobstructive pneumonia.
MRSA positive--IV vancomycin
IV Decadron weaned off
Negative strep pneumo and Legionella antigen
VSE-recommend regular thin liquids
Consult IR for right axillary lymph node biopsy
S/p right axillary lymph node biopsy reveals lung adenocarcinoma c/w breast primary
Oncology consult
Plan to start letrozole 2.5 mg per oncology team
Acute hypoxic respiratory failure
Suspect due to aspiration pneumonia/COPD exacerbation/hilar mass
Currently on 3 L of oxygen
Wean as able
History of COPD
Likely COPD exacerbation(dyspnea and wheezing present)
Not on home O2
Continue Daliresp(Roflumilast)
DuoNebs ATC and as needed
Pulmonology eval
Dyspnea on exertion/orthopnea/LE edema
May be due to pneumonia or hilar mass
Echo reveals echo reveals LVEF 55% with normal regional wall motion and left ventricle wall thickness.
ASCVD (Hx of CAD, PAD)
s/p coronary stents, PAD stents and b/l femoral endarterectomies.
Continue aspirin uninterrupted
Hold Plavix for potential lung biopsy
Essential hypertension
Continue amlodipine and Nebivolol
Hypothyroidism
Continue levothyroxine
Type 1 diabetes mellitus
Insulin pump fell off
Basal rate is 0.964/hr
Start basal 23 units and bolus 7 units
Monitor blood glucose
Chronic diarrhea
Patient was taking Imodium at home
Start Imodium 2 mg p.o. as needed
Monitor
Diabetic diet
Full code
SCDs
Anticipated Discharge: 24 - 48 hours
Subjective/Interval History
-
Date of Service: July 28, 2024
No overnight events
Objective Data
-
Labs:
Laboratory Results
07/28/24 07/28/24
07:01 07:16
WBC Pending
Hgb Pending
Hct Pending
Plt Count Pending
Glucose 395 H
Vital Signs:
Vital Signs
Temp Pulse Resp BP Pulse Ox
98.6 F 81 17 129/45 95
07/28/24 07:42 07/28/24 07:42 07/28/24 07:42 07/28/24 07:42 07/28/24 07:42
I&O
07/27/24 07/28/24 07/29/24
06:59 06:59 06:59
Intake Total 760 / 760 910 / 910
Balance 760 / 760 910 / 910
Review of Systems
-
All other systems: Reviewed and negative
Physical Exam
-
General: Comfortable
HEENT: Normocephalic and Atraumatic
Respiratory: Wheezes
Cardiac: Regular Rhythm and S1/S2
GI: Nondistended
Skin: Warm and Dry
Neuro: AO x 3
Psych: Calm
Data Reviewed
-
Labs: Labs Reviewed by me and Discussed with Physician
--- NOTE | 2024-07-28 07:51 | PN.DE.MGMTRT ---
Addendum entered and electronically signed by CLARE Fuentes 07/28/24 15:11:
Insulin pump has been resumed at pump settings as noted below.
Current blood sugar is 399, 1 hour after lunch time insulin administration
Pump settings as follows:
Basal Correction CHO ratio target
12am 0.2 1:90 1:17 110
3am 0.6 1:90 1:17 110
7am 0.8 1:90 1:13 110
11:30am 0.7 1:90 1:14 110
5pm 0.9 1:90 1:20 110
8:30pm 0.3 1:90 1:27 110
Will monitor aacucheks hourly x4 to assess for rebound hypoglycemia.
Addendum entered and electronically signed by CLARE Fuentes 07/28/24 15:05:
Notified by Nurse that pt's pre-lunch blood sugar was 439 POC and 453 V.
went back to pt's room to discuss resuming insulin pump. Pt states she just finished eating her lunch and is awaiting her insulin.
Will give 15 units of NovoLog and half of SS dose now. Will repeat blood sugar in 1 hr to reassess trend. Nurse to TT me with POC results.
Original Note:
Insulin Management
- -
07/28/2024: Diabetes Management followup
83 year old female admitted 07/21 with Acute hypoxemic resp failure (4-5L here, none at home) due to likely COPD exacerbation from right hilar lung mass and post obstructive PNA (RLL PNA).
PMH includes COPD, bilateral femoral endarterectomy 07/20 and type 1 diabetes. Prior to admission was using tandem insulin pump with control IQ, Humalog insulin, Dexcom G 6, and sure steel infusion sets. She follows with endocrine in [place].
A1C 7.3%, Cr 0.9, eGFR >60
Pt awake, alert, sitting up in chair, offers no complaints. Able to discuss diabetes care plan.
States that she disconnected her insulin pump overnight while repositioning in bed and that her blood sugars have been high since then with her CGM reading as HH. Noted elevated Fasting glucose of 395 V and 412 POC this AM.
Pt has been ordered Lantus 23 units now and 7 units of NovoLog mix 70/30
Pt's TDD via pump was 16 units. Will adjust orders and give Lantus 14 units and 1 time dose of NovoLog 8 units now.
Will closely monitor blood sugar and resume her insulin pump when safe to do so.
Discussed with Nurse and requested to be notified via TT of lunch time blood sugar
Diabetes History
- -
Type of Diabetes: 1
Pre-Admission Diabetes Regimen
Lab Results
Hemoglobin A1c 7.3 % (4.0-5.6) H 07/21/24 04:51
Insulin Pump Settings
IP Diabetes Regimen
07/27/24 07/27/24 07/27/24
11:44 17:01 21:39
Glucose
POC Glucose 136 H 153 H 96
07/28/24 07/28/24
07:09 07:16
Glucose 395 H
POC Glucose 412 H
Meal type: Dinner
Meal type: Lunch
Meal type: Breakfast
Amount consumed: 100%
Amount consumed: 90%
Amount consumed: 100%
Patient Education
[2024-07-28 07:54] LABS: Hematocrit 34.3 % (37.0-47.0); Hemoglobin 11.6 g/dL (12.0-16.0); Mean Corp Hgb Conc. 33.8 g/dL (33.0-37.0); Mean Corpuscular Hgb 30.7 pg (27.0-31.0); Mean Corpuscular Volume 90.7 fL (81.0-99.0); Platelet Count 352 10^3/uL (130-400); Red Blood Cell Count 3.78 10^6/uL (4.20-5.40); Red Cell Dist. Width 14.1 % (11.5-14.5); White Blood Cell Count 19.1 10^3/uL (4.8-10.8)
--- NOTE | 2024-07-28 08:16 | PHA.VAN.FU ---
Vancomycin Assessment / Plan
- Assessment
Renal Function: No New Labs Today
WBC's are: Trending Up
In the past 24 hrs, patient has been: Afebrile
Concomitant Antimicrobials: piperacillin/tazobactam
- Dosing Plan
Continue: Vanc 1000mg Q24H (adjusted 07/27)
- Monitoring Plan
No level(s) ordered at this time: consider levels in next few days
- Follow Up
Pharmacy will continue to follow.
Vancomycin Follow UP
- -
Patient Age: 83
Patient Sex: Female
Vancomycin Day #: 7
Indication: Pulmonary/Respiratory
Requesting Provider: Dr. Ríos (resident)
Pertinent Antimicrobial Allergies:
No known drug allergies
Height / Weight:
Height 4 ft 11 in
Actual Weight 46.266 kg
Pertinent Past Medical History: DM I
- Vital Signs / Lab Results
Temp Pulse Resp BP Pulse Ox
98.6 F 94 20 129/45 92
07/28/24 07:42 07/28/24 07:42 07/28/24 07:42 07/28/24 07:42 07/28/24 07:42
Lab Results - Hematology
07/26/24 07/27/24 07/28/24
08:44 05:28 07:01
WBC 13.8 H 13.6 H 19.1 H
Therapeutic Drug Monitoring
Vancomycin Peak 13.3 ug/ml (18-26) L 07/26/24 08:44
Vancomycin Trough 6.5 ug/ml (5-20) 07/27/24 05:28
--- NOTE | 2024-07-28 08:33 | W.PN.PUL3 ---
Today's Communication / Plan
-
Right axillary lymph node shows metastatic adenocarcinoma of breast primary - consult oncology
prn lasix
Abx with Vanc/Zosyn and recommend to treat for 7-10 days total assuming she remains afebrile for 48 hours prior to stopping antibiotics
Check sputum culture if patient can produce a decent sample, however utility is low given she has been on antibiotics now for several days
If weight loss continues then would stop Daliresp and transition to Ensifentrine (can be done as an outpatient)
Awaiting discharge to [facility]
No additional recommendations at this time. Pulmonary service will now sign off. Outpatient follow-up will be arranged. Please reconsult if there are any additional questions/concerns, or if patient's respiratory status deteriorates.
Assessment
-
Patient is an 83-year-old female with previous history of COPD, diabetes, CAD, PAD, hypertension presenting with progressive shortness of breath over the past week with associated nonproductive coughing. She has noticed orthopnea and lower
extremity swelling CT obtained demonstrating large right-sided diffuse nodular consolidation. She is placed on IV antibiotics for presumed pneumonia but there is suspicion of possible underlying malignancy. We are consulted for evaluation.
Conditions present [place] UPHOLSTERER
COPD-follows [facility] Dr Martínez
Last PFT 12/02/23-FEV1 1.09-81%
Former tobacco use - 02-lbmh-[id number]-quit 2016
PAD s/p Status post bilateral femoral endarterectomy with angioplasty, 07/26/21
Non-insulin dependent type 2 diabetes mellitus
History of peripheral neuropathy
History of aspiration pneumonia - 01/2023
CAD s/p RCA stent 01/2023
TIA
Hypothyroidism
HLD
HFpEF
HTN
BL Carotid disease
Assessment and plan:
#1. Acute hypoxic respiratory failure - Related to pneumonia with suspected lung mass in the setting of underlying COPD.
-Continue antibiotics for pneumonia, continue O2 support to keep saturation above 88%
-MRSA positive --> currently on IV vanco + zosyn - recommend to treat for total of 7-10 days assuming she remains afebrile for 48 hours prior to stopping antibiotics
-Continue to optimize COPD - on DuoNebs QID + daliresp
-Patient has lower extremity, given Lasix 40 mg IV x 1 dose on 07/25; BNP 443 on 07/26 (was 470 on 07/20/2024); LE duplex negative for DVT on 07/26
-CXR checked on 07/26 which shows improvement in right perihilar pneumonia
#2. Right-sided pneumonia with concern for underlying mass with axillary lymphadenopathy and liver lesion concerning for metastasis.
-Patient also reports lack of appetite and weight loss over the last 6 months
-IV vancomycin and Zosyn as ordered. MRSA screen positive. Legionella and strep pneumo antigen negative. Influenza AB screen negative. COVID-19 screen negative.
-Postobstructive pneumonia certainly in differential diagnosis
-s/p axillary lymph node biopsy on 07/23 --> pathology shows metastatic adenocarcinoma consistent with breast primary - consult Oncology to review treatment options
-If additional tissue needed, may consider liver biopsy vs bronchoscopy with biopsy and EBUS TBNA
-In view of active pneumonia, favor continued treatment with antibiotics and repeat imaging in coming weeks before deciding on lung biopsy
#3. h/o COPD, with acute exacerbation
- Last day of IV Decadron on 07/26, continue DuoNeb 4 times daily, as needed albuterol
- Continue Roflumilast. However with reported weight loss, might need to reconsider if she should continue this medication.
- Patient follows up with Dr. Martínez as outpatient, has known emphysema on imaging. Mild obstruction noted on last pulmonary function testing.
- Smoking history noted with 50-PY HX--quit 2016
PT/OT - she is very deconditioned
Will need outpatient pulmonary evaluation in our office for PFTs and 6MWT
Reviewed with patient
She is awaiting discharge back to [facility]
No additional recommendations at this time. Pulmonary service will now sign off. Thank you for allowing us to be involved in the care of this patient. Please reconsult if there are any additional questions/concerns, or if patient's respiratory
status deteriorates.
Diagnostic Data
Chest X-Ray:
07/26/24-Findings suggesting moderate probable right perihilar pneumonia. Underlying mass not excluded. Slightly improved compared to CXR from 07/22/2024
07/20/24- Severe right mid to lower lung zone airspace disease/pneumonia. Suspect underlying right hilar mass/neoplasm. Recommend further evaluation with dedicated CT.
02/19/23- Bilateral parenchymal opacities, likely representing bilateral pneumonia. Interval increase in right upper lobe parenchymal opacity, highly suggestive of increasing pneumonia.
07/23/21- No radiographic evidence of acute cardiopulmonary abnormality.
CT Scan: CHEST 07/21/24- 1. There is a right hilar consolidation extending into the right upper, right lower and posterior right middle lobes with surrounding groundglass opacities. Findings likely represent pneumonia with possible underlying lesion.
Recommend short interval follow-up
2. There are numerous scattered pulmonary nodules which may be infectious in nature although are concerning for metastasis.
3. Moderate apical predominant paraseptal and centrilobular emphysematous changes.
4. 2.2 cm centrally hypodense lesion within the anterior right hepatic lobe appears new from prior CTA in 2022 and concerning for metastasis. Consider dedicated MRI abdomen for further evaluation.
CT AP 06/28/22- lung bases clear
Echo: 07/21/24- Left ventricle is small in size. Normal left ventricular systolic function. Left ventricular ejection fraction is 55% by volumetric assessment. Normal regional wall motion. Normal left ventricular wall thickness. Normal diastolic
function. Thickened mitral valve leaflets. Mitral valve opens normally. Mitral annular calcification. Mild mitral regurgitation. Calcified aortic valve. Aortic sclerosis without stenosis. Trileaflet aortic valve. Trace aortic regurgitation is seen.
Small anterior pericardial effusion. Since prior echocardiogram August 2023 which was reviewed, there is a small anterior pericardial effusion which is of no hemodynamic significance.
09/25/23- 1. Small left ventricle with preserved systolic function, ejection fraction 55-60%
2. Thickened mitral leaflets, mitral annular calcification, mild mitral regurgitation and normal left atrium
3. Marked aortic sclerosis without stenosis. No aortic regurgitation
4. Normal right heart with pulmonary artery systolic pressure of 33 mmHg.
In January 2023 the basal inferior and inferoseptal segments were hypokinetic and the ejection fraction was 45-50%. Mitral regurgitation was moderate, and the pulmonary artery systolic pressure was 45 mmHg.
PFTs:
PFT-02/14/2012- FVC 1.79 or 70%, FEV1 1.24 or 65%, ratio 69%. TLC 3.60 or 81%, DLCO 15.44, 81%
Dom 11/10/2019- FVC 1.81 or 83%, FEV1 1.25 or 79%, Ratio 71%.
DOM: 05/20/2019-FVC: 1.75 L / 80 %; FEV1: 1.14 L / 70 % ; Ratio: 65 %; BD response: NoStable; moderate obstruction
Lbasfmlbls-03-28-19:FVC: 1.87L/ 85%; FEV1: 1.27L/ 79%; ratio: 68% no BD response
PFT 06/14/20-FEV1 1.12 L-77%, FVC 1.71 L-86%, TLC 89%, RV 88%, DLCO 31%. Mild obstruction with normal lung findings and severe reduction in diffusing capacity.
Spirometry 9105/15/20-FEV1 920 mL-64%, FVC 1.49 L-75%, 80% BD response. Moderate obstruction.
PFT 09/12/21-FEV1 1.25 L-52%, FVC 2 L-63%, unable to perform lung volumes, DLCO 30%. Moderate obstruction and severe reduction in diffusing capacity.
Spirometry 03/19/22-FEV1 1.01 L-71%, FVC 1.41 L-73%, no significant improvement postbronchodilator. Mild obstruction.
PFT 09/03/22-FEV1 1.22-84%, FVC 1.94-97%, no significant BD response, unable to perform lung volumes, DLCO 31%, DLCO/VA 38%. Mild obstruction and severe reduction in diffusing capacity.
Spirometry 05/16/23-FEV1 740 mL-54%, FVC 1.24-65%, 8% improvement postbronchodilator. Moderate obstruction.
PFT 12/02/23-FEV1 1.09-81%, FVC 1.88-102%, 9% improvement postbronchodilator. Lung volumes unable to be performed. DLCO 47%, DLCO/VA 55%. Mild obstruction. Moderate reduction in diffusing capacity.
6 minute walk test-11/10/2019- baseline of 97% on RA, desaturaiton to 96%. HR 62-89bpm. ambulated 600 feet.
6 minute walk test-05/20/2019--POx at rest 96%; Johny: 95%,HR: 62-93 bpm, distance 300ft
6 minute walk test 06/14/20-Ambulated 600 feet with desaturation johny of 90% maximal heart rate of 91. No supplemental oxygen required.
6 minute walk test 03/14/21-Ambulated 450 feet with a desaturation johny of 99% and maximum heart rate of 89. No oxygen requirement.
6 minute walk test 09/12/21-Ambulated 525 feet with a desaturation johny of 97% maximum heart rate of 90. Maximum dyspnea scale score 2.0. No Oxygen required.
6 minute walk test 12/02/23-ambulated 752, desaturation johny 94% maximum heart rate of 73. Maximum dyspnea scale score 1. No supplemental oxygen needed.
Reports and relevant images were personally reviewed.
Total time spent today was 36 minutes for this encounter. Time includes reviewing laboratory test/imaging results, reviewing pertinent medical records, obtaining and reviewing medical history, performing an appropriate exam, ordering medications,
tests and procedures. Time also includes documentation of this encounter, coordinating patient care and communicating with other healthcare professionals. Total time does not include separately billed tests performed on this date of service.
Subjective Data
-
Date of Service:
Date of Service: July 28, 2024
Chief Complaint: Pulmonary Follow Up
Subjective:
Patient seen and evaluated this morning. Afebrile overnight. Remains on 3 L/min nasal cannula saturating 92%. Denies chest pain, GENTILE, nausea, fevers or chills.
Review of Systems
General: Other (Negative unless mentioned above)
Objective Data
Data Reviewed
Vital Signs / I&O / Oxygen:
Vital Signs
Temp Pulse Resp BP Pulse Ox
98.6 F 94 20 129/45 92
07/28/24 07:42 07/28/24 07:42 07/28/24 07:42 07/28/24 07:42 07/28/24 07:42
Intake and Output
07/27/24 07/28/24 07/29/24
06:59 06:59 06:59
Intake Total 760 / 760 910 / 910
Balance 760 / 760 910 / 910
SaO2 92
Nasal Cannula flow liters per 3
minute
Physical Exam
General: Respiratory Distress (negative), Comfortable, Chills (negative), Sweats (negative), Poor Appetite and Other (deconditioned)
HEENT: Normocephalic, Anicteric and Moist Mucous Membranes
Cardiovascular: S1-S2 and Peripheral Edema (trace LE edema bilaterally)
Respiratory: Wheeze (occasionally heard in bases bilaterally), Crackles (mainly in bases (L>R)), Rhonchi (negative), Non-Labored Respirations, Stridor (negative) and Other (Diminished breath sounds bilaterally)
GI: Soft, Non Distended, Non Tender and Normal Bowel Sounds
Neurology: Awake, Alert, Oriented and Tremors (negative)
Skin: Warm, Dry, Cyanosis (negative) and Jaundice (negative)
Labs/Micro/Reports
Lab Data
07/28/24 07:01
07/28/24 07:16
--- NOTE | 2024-07-28 08:54 | CON.ONC ---
Consultation
-
Date Consultation Requested: 07/27/24
Date Consultation Performed: 07/28/24
Performing Provider: Dr. Gutierrez/Dr. Zavaleta
Impression
Impression
metastatic breast adenocarcinoma-- new diagnosis this admission
biopsy confirmed LN involvement
strongly ER+/MA+ (90%)
hilar mass, likely secondary to above
postobstructive pneumonia
COPD, h/o smoking-- follows with pulmonology outpatient
acute on chronic dyspnea secondary to above problems
Chest CT 07/21/24:
1. There is a right hilar consolidation extending into the right upper, right lower and posterior right middle lobes with surrounding groundglass opacities. Findings likely represent pneumonia with possible underlying lesion. Recommend short
interval follow-up
2. There are numerous scattered pulmonary nodules which may be infectious in nature although are concerning for metastasis.
3. Moderate apical predominant paraseptal and centrilobular emphysematous changes.
4. 2.2 cm centrally hypodense lesion within the anterior right hepatic lobe appears new from prior CTA in 2022 and concerning for metastasis. Consider dedicated MRI abdomen for further evaluation.
Plan
Plan
Will initiate treatment with letrozole 2.5mg daily given that her cancer is strongly ER+, it is generally well tolerated, and lung metastasis contributing to acute presentation with postobstructive pneumonia. After resolution of her acute medical
problems/possible SNF rehab, plan to follow up with heme/onc outpatient and undergo PET scan (anticipate in the next few weeks). Though letrozole has potential to change staging on the eventual PET scan, the benefits of treatment outweigh this risk.
Discharge tab updated and our office will help coordinate follow up when able to schedule. Discussed extensively with patient and daughter Kymberly (via speakerphone in room), and they are understanding and in agreement with plan. Will also obtain CA
27-29 for baseline to monitor.
Patient History
History of Present Illness
83yo F with PMH COPD, PAD/CAD, DM-1 who presented to ED for shortness of breath/weakness. Over East weekend, her daughter noticed she was breathing harder than baseline COPD and wheezing more. She was seen by PCP for weakness/shortness of breath
and right axillary lymphadenopathy; she was sent to ED for evaluation. Now admitted with postobstructive pneumonia from new hilar mass. Right axillary lymph node biopsy revealed lung adenocarcinoma consistent with breast primary. She denies personal
history of cancer; reports mammograms/US/biopsies in past were all benign (most recent mammogram 2020). Denies any breast concerns including mass, skin changes, nipple discharge. Reports 15-20 lbs unintentional weight loss. Endorses chronic dyspnea,
dysequilibrium with ambulation.
On evaluation today, she says she is anxious. Her breathing feels better after the nebulizer. Her weakness is generally unchanged (says it's okay now, but was 'really bad' last night). Her daughter Kymberly was involved invovled in conversation via
speakerphone per patient preference.
Past-Medical/Surgical History
COPD, CAD NSTEMI 01/2023, compensated CHFpEF, htn
PAD, bilateral carotid artery stenosis, TIA, HLD
DM-1, h/o smoking (40 pack years, quit 5 years ago)
hypothyroidism, GERD, IBS-D, lactose intolerance
, R popliteal angioplasty, 06/2021 bilat femoral endarterectomy, 01/2023 coronary stenting
onco family history: mother uterine cancer (d. 54yo)
Patient Medication
�Medication �Instructions �Recorded �Confirmed �Last Taken �Type
Insulin Pump [Patient's Own 1 dose SC . VIA HUMALOG Diabetes 07/15/17 07/21/24 06/28/22 History
Insulin Pump:]
aspirin 81 mg tablet,delayed 81 mg PO DAILY Blood clot 07/15/17 07/21/24 02/16/23 History
release prevention/tx
ferrous sulfate 325 mg (65 mg 325 mg PO QPM Supplement 07/15/17 07/21/24 02/16/23 History
iron) tablet (FeroSul)
coenzyme Q10 200 mg capsule 200 mg PO QPM Supplement 09/08/20 07/21/24 02/16/23 History
glycopyrrolate 9 mcg-formoterol 2 puff inhalation R BID 09/08/20 07/21/24 06/28/22 History
4.8 mcg HFA aerosol inhaler Lung/breathing issues ##0
(Bevespi Aerosphere)
roflumilast 500 mcg tablet 500 mcg PO DAILY Lung/breathing 09/08/20 07/21/24 02/16/23 History
(Daliresp) issues
levothyroxine 100 mcg tablet 100 mcg PO MOTUWETHFRSA Thyroid 07/19/21 07/21/24 02/16/23 History
loperamide 2 mg capsule 2 mg PO Q48H diarrhea 06/28/22 07/21/24 06/28/22 History
albuterol sulfate 2.5 mg/3 mL 2.5 mg inhalation R DAILY 02/17/23 07/21/24 Unknown History
(0.083 %) solution for nebulization Lung/Breathing Issues
biotin 10,000 mcg chewable tablet 10,000 mcg PO DAILY Supplement 02/17/23 07/21/24 Unknown History
(Hair, Skin and Nails (biotin))
gabapentin 100 mg capsule 100 mg PO HS Neurological Condition 02/17/23 07/21/24 02/16/23 History
glucagon 3 mg/actuation nasal 3 mg intranasal DAILYPRN PRN LOW 02/17/23 07/21/24 Unknown History
spray (Baqsimi) BLOOD SUGAR
atorvastatin 80 mg tablet 80 mg PO QPM #30 tabs 02/25/23 07/21/24 Unknown Rx
clopidogrel 75 mg tablet 75 mg PO DAILY #30 tabs 02/25/23 07/21/24 Unknown Rx
amlodipine 2.5 mg tablet (Norvasc) 2.5 mg PO BID 07/21/24 07/21/24 Unknown History
doxazosin 1 mg tablet 1 mg PO HS 07/21/24 07/21/24 Unknown History
levothyroxine 100 mcg tablet 150 mcg PO EDWARDS 07/21/24 07/21/24 Unknown History
(Synthroid)
nebivolol 2.5 mg tablet (Bystolic) 2.5 mg PO DAILY 07/21/24 07/21/24 Unknown History
Active Medications
Generic Name Dose Route Start Last Admin
Trade Name Freq PRN Reason Stop Dose Admin
Acetaminophen 650 mg 07/20/24 23:38 07/28/24 05:59
Acetaminophen 325 Mg Tablet PO 08/17/24 23:37 650 mg
Q4HPRN PRN Administration
mild pain / temp > 101
Albuterol Sulfate 2.5 mg 07/20/24 23:38 07/28/24 02:31
Albuterol Nebs 2.5 Mg/3 Ml Ampul INH 2.5 mg
R Q4HPRN PRN Administration
SOB
Protocol
Albuterol/Ipratropium 3 ml 07/21/24 08:00 07/28/24 07:42
Ipratropium 0.5/Albuterol 3 Mg (3 Ml Ampul) INH 3 ml
R QID GONZALEZ Administration
Protocol
Amlodipine Besylate 2.5 mg 07/21/24 08:00 07/27/24 21:09
Amlodipine 2.5 Mg Tablet PO 08/18/24 07:59 2.5 mg
BID GONZALEZ Administration
Aspirin 81 mg 07/21/24 08:00 07/27/24 08:54
Aspirin 81 Mg (Enteric Coated) Tablet PO 08/18/24 07:59 81 mg
DAILY GONZALEZ Administration
Atorvastatin Calcium 80 mg 07/21/24 18:00 07/27/24 17:12
Atorvastatin (Lipitor) 80 Mg Tablet PO 08/18/24 17:59 80 mg
QPM GONZALEZ Administration
Cholecalciferol 25 mcg 07/27/24 12:45 07/27/24 12:52
Cholecalciferol (Vitamin D3) 25 Mcg Tablet (1,000 Units) PO 08/24/24 12:44 25 mcg
DAILY GONZALEZ Administration
Cyanocobalamin 100 mcg 07/27/24 13:00 07/27/24 12:52
Cyanocobalamin (Vitamin B-12) 100 Mcg Tablet PO 08/24/24 12:59 100 mcg
DAILY GONZALEZ Administration
Dextrose 12.5 grams 07/20/24 23:38
Dextrose 50% (0.5 Grams/Ml) 50 Ml Syringe IV 08/17/24 23:37
[id number] PRN
hypoglycemia
Protocol
Dextrose 12.5 grams 07/20/24 23:00
Dextrose 50% (0.5 Grams/Ml) 50 Ml Syringe IV 08/17/24 22:59
PRN PRN
HYPOGLYCEMIA
Doxazosin Mesylate 1 mg 07/24/24 22:00 07/27/24 21:09
Doxazosin 1 Mg Tablet PO 08/21/24 21:59 1 mg
HS GONZALEZ Administration
Ferrous Sulfate 325 mg 07/24/24 18:00 07/27/24 17:12
Ferrous Sulfate 325 Mg Tablet PO 08/21/24 17:59 325 mg
QPM GONZALEZ Administration
Gabapentin 100 mg 07/21/24 22:00 07/27/24 21:09
Gabapentin 100 Mg Capsule PO 08/18/24 21:59 100 mg
HS GONZALEZ Administration
Glucagon 1 mg 07/20/24 23:38
Glucagon 1 Mg Vial IM 08/17/24 23:37
PRN PRN
hypoglycemia
Protocol
Glucagon 1 mg 07/20/24 23:00
Glucagon 1 Mg Vial IM 08/17/24 22:59
PRN PRN
hypoglycemia
Piperacillin Sod/Tazobactam Sod 2.25 grams in 50 mls @ 100 mls/hr 07/23/24 16:00 07/28/24 04:28
Zosyn IV 50 mls
Q6H GONZALEZ Administration
Vancomycin HCl 1 gram in 200 mls @ 200 mls/hr 07/28/24 06:00 07/28/24 05:54
Vancocin IV 200 mls
DAILY@0600 GONZALEZ Administration
Protocol
Insulin Glargine 23 units/ 0.23 mls @ 0 mls/hr 07/29/24 07:00
Device SC 08/26/24 06:59
DAILY AT 0700 GONZALEZ
As Directed
Insulin Aspart 0 units 07/28/24 11:30
Insulin Aspart Moderate Resistance 300 Units/3 Ml Pen.Injctr SC 08/25/24 11:29
AC GONZALEZ
Protocol
Letrozole 2.5 mg 07/28/24 09:00
Letrozole 2.5 Mg (Non-Form) Tablet PO 08/25/24 08:59
DAILY GONZALEZ
Levothyroxine Sodium 100 mcg 07/21/24 06:00 07/28/24 05:55
Levothyroxine 100 Mcg Tablet PO 08/18/24 05:59 100 mcg
MoTuWeThFrSa@599 GONZALEZ Administration
Levothyroxine Sodium 150 mcg 07/25/24 06:00 07/25/24 05:17
Levothyroxine 100 Mcg Tablet PO 08/22/24 05:59 150 mcg
EDWARDS@0600 GONZALEZ Administration
Loperamide HCl 2 mg 07/24/24 10:39 07/26/24 22:42
Loperamide 2 Mg Capsule PO 08/21/24 10:38 2 mg
Q4HPRN PRN Administration
diarrhea
Loperamide HCl 2 mg 07/25/24 08:00 07/27/24 08:54
Loperamide 2 Mg Capsule PO 08/22/24 07:59 2 mg
Q48H GONZALEZ Administration
Nebivolol 2.5 mg 07/25/24 08:00 07/27/24 08:53
Nebivolol Hcl 2.5 Mg Tablet PO 08/22/24 07:59 2.5 mg
DAILY GONZALEZ Administration
Pantoprazole Sodium 40 mg 07/21/24 08:00 07/27/24 08:53
Pantoprazole 40 Mg Delayed Release Tablet PO 08/18/24 07:59 40 mg
DAILY GONZALEZ Administration
Roflumilast 500 mcg 07/21/24 08:00 07/27/24 08:53
Roflumilast (Daliresp) 500 Mcg Tablet PO 08/18/24 07:59 500 mcg
DAILY GONZALEZ Administration
Sodium Chloride 0 flush 07/20/24 22:00 07/26/24 06:01
Sodium Chloride 0.9% (Flush) Syringe IV 08/17/24 21:59 2 flush
PER PROTOCOL GONZALEZ Administration
Review of Systems
-
History Source: Patient and Family
Constitutional: Reports Weight Loss and Weakness; Denies Fever
EENT: Reports No Symptoms
Respiratory: Reports Cough, Trouble Breathing and Wheezing; Denies Hemoptysis
Cardiac: Reports Orthopnea; Denies Chest Pain, Diaphoresis, Palpitations or Syncope
GI: Denies Abdominal Pain, Nausea, Vomiting, Diarrhea, Constipated, Bloody Stools or Black Stools
Breast: Reports Other (see HPI)
: Reports No Symptoms
Musculoskeletal: Reports Edema
Skin: Reports No Symptoms
Neuro: Reports Other (disequilibrium with ambulation, holds onto furniture for balance at home); Denies Dizzy or Lightheadedness
Hematologic/Lymphatic: Reports Lymphedema (R axilla)
Psych: Reports Anxious
Physical Exam
-
right breast with palpable nodularity approx 9:00 position relative to nipple; no erythema, rash, skin puckering, ulceration, nipple discharge
General: No Apparent Distress, Comfortable, Conversant and Other (elderly female); Negative Pain, Fever, Chills or Sweats
HEENT: Negative Jaundice
Pulmonary: Other (nonlabored breathing; supplemental oxygen via nasal canula )
GI: Other (soft, nontender, nondistended; no rebound/rigidity/guarding; soft/nontender umbilical hernia easily reducible )
Extremities: Edema (bilat lower extrem with +1 pitting edema, symmetric; both lower legs shiny/decreased hair consistent with PAD)
Neurology: Non Focal, No Lateralizing Symptoms and No Word Finding Difficulty
Skin: Warm and Dry
Hematologic / Lymphatic: Lymphadenopathy (right axilla)
Psych: Calm
Labs
Lab Results
WBC 19.1 10^3/uL (4.8-10.8) H 07/28/24 07:01
RBC 3.78 10^6/uL (4.20-5.40) L 07/28/24 07:01
Hgb 11.6 g/dL (12.0-16.0) L 07/28/24 07:01
Hct 34.3 % (37.0-47.0) L 07/28/24 07:01
MCV 90.7 fL (81.0-99.0) 07/28/24 07:01
MCH 30.7 pg (27.0-31.0) 07/28/24 07:01
MCHC 33.8 g/dL (33.0-37.0) 07/28/24 07:01
RDW 14.1 % (11.5-14.5) 07/28/24 07:01
Plt Count 352 10^3/uL (130-400) 07/28/24 07:01
MPV 9.0 fL (7.4-10.4) 07/28/24 07:01
Abs Immat Gran (auto) 0.0 10^3/uL (0-0.05) 07/20/24 19:14
Absolute Neuts (auto) 7.7 10^3/uL (1.4-6.5) H 07/20/24 19:14
Absolute Lymphs (auto) 1.6 10^3/uL (1.2-3.4) 07/20/24 19:14
Absolute Monos (auto) 1.1 10^3/uL (0.1-0.6) H 07/20/24 19:14
Absolute Eos (auto) 0.6 10^3/uL (0-0.7) 07/20/24 19:14
Absolute Basos (auto) 0.0 10^3/uL (0-0.2) 07/20/24 19:14
Immature Gran % 0.4 % (0-0.5) 07/20/24 19:14
Neutrophils % 69.9 % (42.2-75.2) 07/20/24 19:14
Lymphocytes % 14.6 % (20.5-51.1) L 07/20/24 19:14
Monocytes % 9.7 % (1.7-9.3) H 07/20/24 19:14
Eosinophils % 5.0 % (0-6) 07/20/24 19:14
Basophils % 0.4 % (0-2) 07/20/24 19:14
Creatinine 1.0 mg/dL (0.6-1.0) 07/25/24 05:51
Vital Signs
Vital Signs
Temp Pulse Resp BP Pulse Ox
98.6 F 94 20 129/45 92
07/28/24 07:42 07/28/24 07:42 07/28/24 07:42 07/28/24 07:42 07/28/24 07:42
--- NOTE | 2024-07-28 09:00 | PTCARENOTE ---
Patient's blood glucose with accucheck read 'RR high' this morning. As per protocol, stat venous draw initiated; that level was 395. Reached out to attending and diabetic [employer] for orders. Patient removed her insulin pump as it seemed not to be
working, and she stated she was unable to bolus herself to correct this level. New orders were received to manage the high glucose level.
[2024-07-28 09:18] LABS: Glucose - Point of Care 341 mg/dl (70-99)
[2024-07-28] MEDS: LANTUS 0.14 UNITS SC (09:24)
[2024-07-28] MEDS: NORVASC 2.5 MG PO ×2 (09:27→20:45)
[2024-07-28] MEDS: BYSTOLIC 2.5 MG PO (09:27)
[2024-07-28] MEDS: FEMARA 2.5 MG PO (09:27)
[2024-07-28] MEDS: VITAMIN B-12 100 MCG PO (09:28)
[2024-07-28] MEDS: DALIRESP 500 MCG PO (09:28)
[2024-07-28] MEDS: VITAMIN D3 (cholecalciferol) 25 MCG PO (09:28)
[2024-07-28] MEDS: ASPIR LOW (ENTERIC COATED) 81 MG PO (09:28)
[2024-07-28] MEDS: PROTONIX 40 MG PO (09:28)
[2024-07-28] MEDS: NOVOLOG FLEXPEN 8 UNITS SC (09:47)
[2024-07-28] MEDS: PT'S OWN INSULIN PUMP - HumaLOG SC (09:54)
[2024-07-28 12:12] LABS: Glucose - Point of Care 439 mg/dl (70-99)
--- NOTE | 2024-07-28 12:25 | CM ---
CM following re: discharge planning.
Reviewed pt's chart, met with pt and spoke to pt's daughter Kymberly over the phone to update on discharge plan progress.
PT and OT continue recommending SNF vs home PT.
Pt reports she lives alone in a 2SH, has a dog, has 2 daughters, one lives locally and another in [place]. Pt reports she was born and grew up in [place], emigrated to [facility] at the age of 18.
A referral to [facility] and [facility] made yesterday. [facility] offered a bed with admission today or tomorrow. Per [facility] director of search engine marketing, they will not hold a bed after tomorrow. is aware.
D/C plan: Hopefully [facility] SNF tomorrow if pt is medically stable for discharge.
CM will follow with discharge plan updates as hospitalization progresses
[2024-07-28 13:09] LABS: Glucose 453 mg/dl (70-99)
[2024-07-28] MEDS: NOVOLOG FLEXPEN 15 UNITS SC (13:51)
[2024-07-28] MEDS: NOVOLOG FLEXPEN-MODERATE RESISTANCE 5 UNITS SC (13:52)
[2024-07-28 15:05] LABS: Glucose - Point of Care 399 mg/dl (70-99)
[2024-07-28 15:09] VITALS: BP 116/53; PULSE 73; O2SAT 96
[2024-07-28 15:38] VITALS: BP 143/50
[2024-07-28 16:03] LABS: Glucose - Point of Care 313 mg/dl (70-99)
[2024-07-28 16:55] LABS: Glucose - Point of Care 252 mg/dl (70-99)
[2024-07-28] MEDS: FEOSOL 325 MG PO (17:10)
[2024-07-28] MEDS: NOVOLOG FLEXPEN-MODERATE RESISTANCE SC (17:10)
[2024-07-28] MEDS: LIPITOR 80 MG PO (17:11)
[2024-07-28 19:15] LABS: Glucose - Point of Care 132 mg/dl (70-99)
[2024-07-28 21:17] LABS: Glucose - Point of Care 89 mg/dl (70-99)
[2024-07-28] MEDS: NEURONTIN 100 MG PO (22:34)
[2024-07-28] MEDS: CARDURA 1 MG PO (22:38)
[2024-07-28 23:00] VITALS: BP 139/68
[2024-07-29] MEDS: VENTOLIN NEBULES 2.5 MG INH (02:20)
[2024-07-29] MEDS: ZOSYN 50 IV ×3 (05:21→15:11)
[2024-07-29] MEDS: VANCOCIN 200 IV (06:09)
[2024-07-29] MEDS: SYNTHROID 100 MCG PO (06:13)
[2024-07-29 07:00] VITALS: BP 135/66
[2024-07-29 07:42] LABS: Glucose - Point of Care 109 mg/dl (70-99)
--- NOTE | 2024-07-29 07:54 | W.PN.HOSP.TC ---
Today's Communication/Plan
-
Insulin pump resumed
Discharge plan to SNF today
Dispo medications :
Letrozole 2.5 mg daily for breast cancer, newly diagnosed
Augmentin and doxycycline for postobstructive pneumonia
Follow-up with outpatient oncology for further testing
Follow-up with outpatient pulmonology
Assessment / Plan
Assessment / Plan
Impression
Right lower lobe pneumonia
Metastatic breast adenocarcinoma--- new diagnosis on this admission
Acute hypoxic respiratory failure
History of COPD
Dyspnea on exertion/orthopnea/LE edema
History of PAD and CAD
Essential hypertension
Hypothyroidism
Type 1 diabetes mellitus
Chronic diarrhea
Plan
Right lower lobe pneumonia likely due to aspiration/right hilar mass
Metastatic breast adenocarcinoma--- new diagnosis on this admission
Patient is afebrile with no leukocytosis
Chest CT with IV contrast for workup of hilar mass--- lung malignancy?
Appreciate pulmonology input
Changed to Zosyn for anaerobic coverage and postobstructive pneumonia.
MRSA positive--IV vancomycin
IV Decadron weaned off
Negative strep pneumo and Legionella antigen
VSE-recommend regular thin liquids
Consult IR for right axillary lymph node biopsy
S/p right axillary lymph node biopsy reveals lung adenocarcinoma c/w breast primary
Continue letrozole 2.5 mg daily
Discharge planning to SNF today
Acute hypoxic respiratory failure
Suspect due to aspiration pneumonia/COPD exacerbation/hilar mass
Currently on 3 L of oxygen
Wean as able
History of COPD
Likely COPD exacerbation(dyspnea and wheezing present)
Not on home O2
Continue Daliresp(Roflumilast)
DuoNebs ATC and as needed
Pulmonology eval
Dyspnea on exertion/orthopnea/LE edema
May be due to pneumonia or hilar mass
Echo reveals echo reveals LVEF 55% with normal regional wall motion and left ventricle wall thickness.
ASCVD (Hx of CAD, PAD)
s/p coronary stents, PAD stents and b/l femoral endarterectomies.
Continue aspirin uninterrupted
Hold Plavix for potential lung biopsy
Essential hypertension
Continue amlodipine and Nebivolol
Hypothyroidism
Continue levothyroxine
Type 1 diabetes mellitus
Insulin pump resumed
Monitor blood glucose
Chronic diarrhea
Patient was taking Imodium at home
Start Imodium 2 mg p.o. as needed
Monitor
Diabetic diet
Full code
SCDs
Anticipated Discharge: Today
Subjective/Interval History
-
Date of Service: July 29, 2024
No overnight events continues to be on 3 to 4 L of oxygen
Objective Data
-
Labs:
Laboratory Results
07/29/24
07:17
WBC Pending
Hgb Pending
Hct Pending
Plt Count Pending
Vital Signs:
Vital Signs
Temp Pulse Resp BP Pulse Ox
98.5 F 72 18 135/66 94
07/29/24 07:00 07/29/24 07:00 07/29/24 07:00 07/29/24 07:00 07/29/24 07:00
I&O
07/28/24 07/29/24 07/30/24
06:59 06:59 06:59
Intake Total 910 / 910 600 / 600
Balance 910 / 910 600 / 600
Review of Systems
-
All other systems: Reviewed and negative
Physical Exam
-
General: Comfortable
HEENT: Normocephalic and Atraumatic
Respiratory: Wheezes
Cardiac: Regular Rhythm and S1/S2
Musculoskeletal: No Edema
Neuro: AO x 3
Psych: Calm
Data Reviewed
-
Labs: Labs Reviewed by me and Discussed with Physician
--- NOTE | 2024-07-29 07:56 | W.PN.UPDATE ---
Update Note
Progress Note Update
I saw and evaluated the patient. I reviewed the resident�s note and agree with findings and plan as documented in the resident�s note.
No new complaints.
Gen: NAD, awake and alert, appears chronically ill
Eyes: EOMI, PERRLA, no scleral icterus.
Neck: supple.
CV: RRR, +S1/S2, no m/r/g.
Resp: faint wheezes, dec BS and mild rales R base
Skin: No rashes. 1+ B/L LE edema
Neuro: CN 2-12 intact, non-focal.
Psych: Normal mood and affect.
07/21/24 21:47 Urine Legionella Urinary Antigen - Final
Negative for Legionella pneumophila Serogroup 1 antigen.
A negative result does not rule out the possiblity of
Legionella infection due to other serogroups or species of
Legionella. Clinical correlation is recommended.
07/21/24 21:47 Urine Streptococcus pneumoniae Antigen (M - Final
Negative for Streptococcus pneumoniae antigen.
A negative result does not exclude infection with
Streptococcus pneumoniae. Clinical correlation is
recommended.
07/21/24 06:03 Nose MRSA Screen - Final
Staph aureus MRSA
07/20/24 19:14 Nasal Swab Influenza Types A & B (BRENDA) - Final
Negative for Influenza A & B, NAAT
Negative results must be combined with clinical observations
and patient history.
Nucleic Acid Amplification test (NAAT)performed on the
[employer] NOW platform.
CT chest w/IV:
1. There is a right hilar consolidation extending into the right upper, right lower and posterior right middle lobes with surrounding groundglass opacities. Findings likely represent pneumonia with possible underlying lesion. Recommend short
interval follow-up
2. There are numerous scattered pulmonary nodules which may be infectious in nature although are concerning for metastasis.
3. Moderate apical predominant paraseptal and centrilobular emphysematous changes.
4. 2.2 cm centrally hypodense lesion within the anterior right hepatic lobe appears new from prior CTA in 2022 and concerning for metastasis. Consider dedicated MRI abdomen for further evaluation.
Echo: EF 55%, no RWMA, normal diastolic fxn, mild MR, trace AR, small anterior pericardial effusion
Acute hypoxemic respiratory failure:
-not on home O2, currently on 3L NC O2 (was on as much as 5L here)
-due to likely COPD exacerbation from right hilar lung mass and post obstructive RLL PNA
-strep pneumo and Legionella Ags NEG
-Speech eval completed, on regular diet
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 ONC saw in c/s. Letrozole started. Outpt PET, check CA27-29, outpt ONC f/u.
-was on Decadron, now off
-cont Vanco/Zosyn for now, transition to PO abx regimen on d/c to complete 10 days
-pulm following
DM1:
-pt has been having difficulty using her insulin pump which was stopped 07/28/24AM
-currently on basal/bolus insulin
-plan is to resume insulin pump on d/c
CAD, PAD:
-s/p coronary stents, PAD stents and B/L femoral endarterectomies
-cont ASA/Plavix
Other problems:
Chronic diarrhea: cont Imodium
Essential HTN: cont amlodipine/Nebivolol
Hypothyroidism: cont levothyroxine
FULL/SCDs
Total time spent on d/c = 33 min. This included today's physical exam, progress note, review of laboratory and diagnostic data, preparation of discharge documents and prescriptions, and discussions about the pt's hospital course and discharge plan
with the patient and other medical records field technician involved in the patient's care.
[2024-07-29] MEDS: DUONEB 3 ML INH ×3 (08:09→15:32)
--- NOTE | 2024-07-29 08:14 | PN.DE.MGMTRT ---
Addendum entered and electronically signed by CLARE Fuentes 07/29/24 12:26:
Pt has followup appointment with her [facility] Filler Dr. Hunter at [facility] on August 02. Dtr will be able to pick her up from SNF to her appointment
Original Note:
Insulin Management
- -
07/29/2024: Diabetes Management followup
83 year old female admitted 07/21 with Acute hypoxemic resp failure (4-5L here, none at home) due to likely COPD exacerbation from right hilar lung mass and post obstructive PNA (RLL PNA).
PMH includes COPD, bilateral femoral endarterectomy 07/20 and type 1 diabetes. Prior to admission was using tandem insulin pump with control IQ, Humalog insulin, Dexcom G 6, and sure steel infusion sets. She follows with endocrine in [place].
A1C 7.3%, Cr 0.9, eGFR >60
Pt awake, alert, sitting up in chair, offers no complaints. Able to discuss diabetes care plan. Updated Dtr via phone at bedside
Insulin pump was restarted yesterday afternoon. Glucose stabilized and remained in range overnight,
HS glucose was 89, FBG 109 this AM. Pt is for discharge to SNF today, she is eager to get out of the hospital.
Will consider adjusting basal rates back to her pre-hospital settings since her A1C is at target goal.
Discussed with Nurse and requested to be notified via TT of lunch time blood sugar and time to d/c.
Will make no changes to Insulin pump settings as noted below.
Basal Correction CHO ratio target
12am 0.2 1:90 1:17 110
3am 0.6 1:90 1:17 110
7am 0.8 1:90 1:13 110
11:30am 0.7 1:90 1:14 110
5pm 0.9 1:90 1:20 110
8:30pm 0.3 1:90 1:27 110
Will cont to monitor closely. Pt is independent in managing pump and knows when to administer bolus with meals.
Diabetes History
- -
Type of Diabetes: 1
Pre-Admission Diabetes Regimen
Lab Results
Hemoglobin A1c 7.3 % (4.0-5.6) H 07/21/24 04:51
Insulin Pump Settings
IP Diabetes Regimen
07/28/24 07/28/24 07/28/24
09:16 12:11 12:37
Glucose 453 H*
POC Glucose 341 H 439 H
07/28/24 07/28/24 07/28/24
15:02 16:02 16:54
Glucose
POC Glucose 399 H 313 H 252 H
07/28/24 07/28/24 07/29/24
19:14 21:16 07:41
Glucose
POC Glucose 132 H 89 109 H
Meal type: Lunch
Meal type: Breakfast
Amount consumed: 50%
Amount consumed: 95%
Patient Education
--- NOTE | 2024-07-29 08:18 | PHA.VAN.FU ---
Vancomycin Assessment / Plan
- Assessment
Renal Function: No New Labs Today
In the past 24 hrs, patient has been: Afebrile
Concomitant Antimicrobials: piperacillin/tazobactam
- Dosing Plan
Continue: Vanc 1000mg Q24H (adjusted 07/27)
- Monitoring Plan
No level(s) ordered at this time: consider levels in next few days
- Follow Up
Pharmacy will continue to follow.
Vancomycin Follow UP
- -
Patient Age: 83
Patient Sex: Female
Vancomycin Day #: 8
Indication: Pulmonary/Respiratory
Requesting Provider: Dr. Ríos (resident)
Pertinent Antimicrobial Allergies:
No known drug allergies
Height / Weight:
Height 4 ft 11 in
Actual Weight 46.266 kg
Pertinent Past Medical History: DM I
- Vital Signs / Lab Results
Temp Pulse Resp BP Pulse Ox
98.5 F 64 20 135/66 97
07/29/24 07:00 07/29/24 08:10 07/29/24 08:10 07/29/24 07:00 07/29/24 08:10
Lab Results - Hematology
07/26/24 07/27/24 07/28/24
08:44 05:28 07:01
WBC 13.8 H 13.6 H 19.1 H
Therapeutic Drug Monitoring
Vancomycin Peak 13.3 ug/ml (18-26) L 07/26/24 08:44
Vancomycin Trough 6.5 ug/ml (5-20) 07/27/24 05:28
[2024-07-29 08:40] LABS: Hematocrit 31.3 % (37.0-47.0); Hemoglobin 10.7 g/dL (12.0-16.0); Mean Corp Hgb Conc. 34.2 g/dL (33.0-37.0); Mean Corpuscular Hgb 30.4 pg (27.0-31.0); Mean Corpuscular Volume 88.9 fL (81.0-99.0); Mean Platelet Volume 9.2 fL (7.4-10.4); Platelet Count 341 10^3/uL (130-400); Red Blood Cell Count 3.52 10^6/uL (4.20-5.40); Red Cell Dist. Width 14.1 % (11.5-14.5); White Blood Cell Count 16.5 10^3/uL (4.8-10.8)
--- NOTE | 2024-07-29 09:27 | CM ---
CM following re: discharge planning.
Reviewed pt's chart, met with pt and spoke to pt's daughter Kymberly over the phone to update on discharge plan progress.
According to pt is medically stable to be discharged today. Both pt and her daughter are aware, expressed their agreement. IMM reviewed, placed on chart, pt has a copy. Pt expressed her agreement with going to [facility]. Pt stated she was
there before and she liked very much.
CM spoke to [facility] operations support representative and she confirmed they do have a bed available and pt is accepted for admission today. 4:00 p.m. discharge time requested.
to arrange ambulance transport, BLS with picker box operator time 4:00 p.m. PMNC completed left with
[facility] nursing report: [phone]
Discharge instructions fax: [phone]
D/C plan: [facility].
No other discharge needs identified.
[2024-07-29] MEDS: NOVOLOG FLEXPEN-MODERATE RESISTANCE SC ×2 (09:33→12:38)
[2024-07-29] MEDS: FEMARA 2.5 MG PO (09:34)
[2024-07-29] MEDS: ASPIR LOW (ENTERIC COATED) 81 MG PO (09:34)
[2024-07-29] MEDS: IMODIUM 2 MG PO (09:34)
[2024-07-29] MEDS: VITAMIN B-12 100 MCG PO (09:35)
[2024-07-29] MEDS: PROTONIX 40 MG PO (09:35)
[2024-07-29] MEDS: BYSTOLIC 2.5 MG PO (09:35)
[2024-07-29] MEDS: DALIRESP 500 MCG PO (09:35)
[2024-07-29] MEDS: NORVASC 2.5 MG PO (09:36)
[2024-07-29] MEDS: VITAMIN D3 (cholecalciferol) 25 MCG PO (09:36)
[2024-07-29] MEDS: TYLENOL 650 MG PO (09:41)
[2024-07-29] MEDS: LANTUS SC (09:48)
--- NOTE | 2024-07-29 11:06 | W.PN.ONC ---
Today's Communication / Plan
-
Continue letrozole 2.5mg daily
Impression
Impression
metastatic breast adenocarcinoma-- new diagnosis this admission
biopsy confirmed LN involvement
strongly ER+/TN+ (90%)
hilar mass, likely secondary to above
postobstructive pneumonia
COPD, h/o smoking-- follows with pulmonology outpatient
acute on chronic dyspnea secondary to above problems
Chest CT 07/21/24:
1. There is a right hilar consolidation extending into the right upper, right lower and posterior right middle lobes with surrounding groundglass opacities. Findings likely represent pneumonia with possible underlying lesion. Recommend short
interval follow-up
2. There are numerous scattered pulmonary nodules which may be infectious in nature although are concerning for metastasis.
3. Moderate apical predominant paraseptal and centrilobular emphysematous changes.
4. 2.2 cm centrally hypodense lesion within the anterior right hepatic lobe appears new from prior CTA in 2022 and concerning for metastasis. Consider dedicated MRI abdomen for further evaluation.
Plan
Plan
Continue letrozole 2.5mg daily (started treatment 07/28/24)
Follow up with heme/onc outpatient and PET scan-- discharge tab updated
Heme/onc surgical scheduler aware to reach out to patient's daughter Kymberly
Baseline CA 27-29 pending
Stable for discharge from heme/onc perspective
D/w hospitalist. Daughter Kymberly updated by phone yesterday.
Subjective/Objective
Subjective/Objective
Patient in good spirits this morning. Still has difficulty breathing, but she says overall feeling a bit better. Denies dizziness, chest pain, abdominal pain, nausea, vomiting, diarrhea (takes scheduled loperamide).
General: Sitting in chair. No acute distress. Appears comfortable. Conversant.
Lungs: Nonlabored breathing. Supplemental oxygen via nasal canula.
Neuro: Awake, alert, oriented. Nonfocal.
Psych: Calm, happy. Appropriate affect.
Vital Signs:
Vital Signs
Temp Pulse Resp BP Pulse Ox
98.5 F 64 20 135/66 97
07/29/24 07:00 07/29/24 09:36 07/29/24 08:10 07/29/24 09:36 07/29/24 08:15
Lab Results:
Laboratory Data
WBC 16.5 10^3/uL (4.8-10.8) H 07/29/24 07:17
Hgb 10.7 g/dL (12.0-16.0) L 07/29/24 07:17
Plt Count 341 10^3/uL (130-400) 07/29/24 07:17
eGFR 55.55 07/25/24 05:51
[2024-07-29 11:33] LABS: Glucose - Point of Care 212 mg/dl (70-99)
--- NOTE | 2024-07-29 11:36 | W.DCSUMMARY ---
Discharge Summary
Discharge Data
Date of Admission: 07/20/24
Date of Discharge: 07/29/24
-
Pending Results: No
Hospital Course
Discharging Physician : Dr Lesia Ríos, Dr Bowen Brambila
Disposition : SNF
Primary care physician : Unknown
Principal Discharge diagnosis :
Right lower lobe pneumonia
Metastatic breast adenocarcinoma--- new diagnosis on admission
Acute hypoxic respiratory failure
History of COPD
Dyspnea on exertion/orthopnea/LE edema
Chronic Discharge diagnosis :
History of PAD and CAD
Essential hypertension
Hypothyroidism
Type 1 diabetes mellitus
Chronic diarrhea
Hospital Course : 83-year-old female who presented with shortness of breath/orthopnea/left lower extremity edema. Chest x-ray and CT's chest revealed right lower lobe pneumonia with right hilar mass. Patient was started on IV antibiotics.
Pulmonology was consulted and suspicion for lung malignancy. On physical exam she had an incidental finding of enlarged right axillary lymph node. [facility] was consulted for right axillary lymph node biopsy. Pathology results revealed metastatic
breast adenocarcinoma(spread to lungs). Oncology was consulted and they recommended letrozole 2.5 mg daily with further outpatient testing at discharge. Blood cultures were negative however MRSA was positive. At discharge, patient will be
discharged to SNF on oxygen, Augmentin and doxycycline to cover 10-day course of antibiotics for pneumonia and letrozole for metastatic breast adenocarcinoma. Advised patient follow-up with oncology for further testing and evaluation.
Important imaging findings :
07/29/[address]
1. There is a right hilar consolidation extending into the right upper, right lower and posterior right middle lobes with surrounding ground glass opacities. Findings likely represent pneumonia with possible underlying lesion. Recommend short
interval follow-up
2. There are numerous scattered pulmonary nodules which may be infectious in nature although are concerning for metastasis.
3. Moderate apical predominant paraseptal and centrilobular emphysematous changes.
4. 2.2 cm centrally hypodense lesion within the anterior right hepatic lobe appears new from prior CTA in 2022 and concerning for metastasis. Consider dedicated MRI abdomen for further evaluation.
Peripheral vascular ultrasound
Negative for bilateral lower extremity deep venous thrombosis.
Procedure findings :
Right axillary lymph node biopsy
Pathology results :
Immunostain analysis with adequate controls show the tumor to be: CK7+, GATA3+, ER+
(90%), AK+ (90%), HER2- (score 0), CDX2-, CK20-, TTF1- and Napsin A-. The
immunoprofile supports the diagnosis.
Discharge Plan
-
Patient Disposition: Intermediate/SNF
Discharge Diagnosis/Procedures: Right lower lobe pneumonia
Metastatic breast adenocarcinoma--- new diagnosis on admission
Acute hypoxic respiratory failure
History of COPD
Dyspnea on exertion/orthopnea/LE edema
History of PAD and CAD
Essential hypertension
Hypothyroidism
Type 1 diabetes mellitus
Chronic diarrhea
Condition: Fair
Diet: Diabetic, Carb Controlled
Activity: As tolerated
Driving Restrictions: As prior to admission
Bathing Restrictions: None
Referrals:
Gautam Martínez MD [Active] - in one to two weeks
UNKNOWN - PT DOES,NOT KNOW [Family Provider] - in less than 1 week
Zack Zavaleta MD [Active] - in two to four weeks (*[facility]* Please schedule follow up appointment and PET scan in a few weeks (after discharge from hospital/nursing facility rehab).)
Additional Discharge Medication Instructions:
Patient will be discharged on oxygen
Start taking Augmentin 1 tablet twice daily to complete antibiotic course for right lower lobe pneumonia
Start taking doxycycline 1 tablet twice daily to complete antibiotic course for right lower lobe pneumonia
Start taking letrozole 2.5 mg 1 tablet daily for newly diagnosed metastatic breast adenocarcinoma on admission
Continue all other home medications
Please follow-up with oncology outpatient for further testing
Please follow-up with pulmonology outpatient
Prescriptions:
New
letrozole 2.5 mg Tablet
2.5 mg PO DAILY Qty: 30 0RF
doxycycline hyclate 100 mg tablet
100 mg PO BID 4 Days Qty: 8 0RF
amoxicillin-pot clavulanate 500-125 mg tablet
1 tab PO BID 4 Days Qty: 8 0RF
Continued
aspirin 81 MG tablet,delayed release (DR/EC)
81 mg PO DAILY
ferrous sulfate [FeroSul] 325 MG tablet
325 mg PO QPM
Insulin Pump [Patient's Own Insulin Pump:] 1 UNITS Pump.Resvr
1 dose SC . VIA HUMALOG
Rx Instructions:
patient using humalog via pump continuous
coenzyme Q10 200 MG capsule
200 mg PO QPM
roflumilast [Daliresp] 500 MCG tablet
500 mcg PO DAILY
Bevespi Aerosphere 9-4.8 mcg Hfa Aerosol Inhaler
2 puff INHALATION R BID Qty: 0
levothyroxine 100 MCG tablet
100 mcg PO MOTUWETHFRSA
loperamide 2 mg Capsule
2 mg PO Q48H
albuterol sulfate 2.5 mg /3 mL (0.083 %) Solution For Nebulization
2.5 mg INHALATION R DAILY
gabapentin 100 mg Capsule
100 mg PO HS
Baqsimi 3 mg/actuation [place],Non-Aerosol
3 mg INTRANASAL DAILYPRN PRN (Reason: LOW BLOOD SUGAR)
Hair, Skin and Nails (biotin) 10,000 mcg Tablet,Chewable
10,000 mcg PO DAILY
atorvastatin 80 mg Tablet
80 mg PO QPM Qty: 30 0RF
clopidogrel 75 mg Tablet
75 mg PO DAILY Qty: 30 0RF
doxazosin 1 mg Tablet
1 mg PO HS
amlodipine [Norvasc] 2.5 mg Tablet
2.5 mg PO BID
levothyroxine [Synthroid] 100 mcg Tablet
150 mcg PO EDWARDS
nebivolol [Bystolic] 2.5 mg Tablet
2.5 mg PO DAILY
Discharge Orders:
Discharge Patient (As Directed); Ordered 07/29/24
Ordered By: Lesia Ríos
Discharge Date and Time
Print Language: [place] CITIZ[place]
[2024-07-29 15:38] VITALS: BP 150/41
[2024-07-29 18:05] LABS: CA 27-29 82.9 U/mL (<=39.0)
== END 2024-07-29 16:14 | DRG 579 ==
LOC: 2 NORTH 23:10
PROVIDERS: Internal Medicine; Radiology Vascular & Interventional Radiology; Student in an Organized Health Care Education/Training Program; ADMITTING PHYSICIAN Hospitalist; ATTENDING PHYSICIAN Internal Medicine; EMERGENCY PHYSICIAN Emergency Medicine; OTHER PHYSICIAN Internal Medicine; OTHER PHYSICIAN Internal Medicine Hematology & Oncology
PROC: 07B53ZX Excision of Right Axillary Lymphatic, Percutaneous Approach, Diagnostic (ICD-10-PCS; 2024-07-23)
DX: C50.911 Malignant neoplasm of unspecified site of right female breast (principal); J18.9 Pneumonia, unspecified organism; J96.01 Acute respiratory failure with hypoxia; J44.0 Chronic obstructive pulmonary disease with (acute) lower respiratory infection; I13.0 Hypertensive heart and chronic kidney disease with heart failure and stage 1 through stage 4 chronic kidney disease, or unspecified chronic kidney disease; I50.32 Chronic diastolic (congestive) heart failure; C78.00 Secondary malignant neoplasm of unspecified lung; I31.39 Other pericardial effusion (noninflammatory); N18.9 Chronic kidney disease, unspecified; E10.22 Type 1 diabetes mellitus with diabetic chronic kidney disease; E10.51 Type 1 diabetes mellitus with diabetic peripheral angiopathy without gangrene; I25.10 Atherosclerotic heart disease of native coronary artery without angina pectoris; E03.9 Hypothyroidism, unspecified; Z79.4 Long term (current) use of insulin; Z96.41 Presence of insulin pump (external) (internal); Z79.890 Hormone replacement therapy; K58.0 Irritable bowel syndrome with diarrhea; Z95.5 Presence of coronary angioplasty implant and graft; Z87.891 Personal history of nicotine dependence; Z79.82 Long term (current) use of aspirin; Z79.02 Long term (current) use of antithrombotics/antiplatelets; Z17.0 Estrogen receptor positive status [ER+]; Z17.21 Progesterone receptor positive status; Z87.01 Personal history of pneumonia (recurrent); J43.9 Emphysema, unspecified; I34.81 Nonrheumatic mitral (valve) annulus calcification; I35.8 Other nonrheumatic aortic valve disorders; I70.0 Atherosclerosis of aorta; E73.9 Lactose intolerance, unspecified; E78.00 Pure hypercholesterolemia, unspecified; I25.2 Old myocardial infarction; K21.9 Gastro-esophageal reflux disease without esophagitis; Z17.32 Human epidermal growth factor receptor 2 negative status; Z79.899 Other long term (current) drug therapy; Z80.49 Family history of malignant neoplasm of other genital organs; Z95.820 Peripheral vascular angioplasty status with implants and grafts; Z11.52 Encounter for screening for COVID-19
CPT/HCPCS: 88305; 38505; 71045; 71046; 71260; 74230; 76942; 80048; 80053; 80202; 82947; 82962; 83036; 83735; 83880; 84145; 84484; 85025; 85027; 86300; 87070; 87147; 87449; 87502; 87811; 87899; 88333; 88341; 88342; 88360; 92610; 92611; 93005; 93306; 93970; 94640; 94669; 97163; 97530; Q9967